=== PATIENT | male | born 1935 | race Caucasian/White ===

== ENCOUNTER 2017-04-24 16:21 | Emergency (ER) | payer MEDICARE, OTHER ==
[2017-04-24] MEDS ORDERED: Lidocaine 1% 30 ML SDV INJECT ONE (17:14)
[2017-04-24] MEDS ORDERED: Bacitracin Oint 1 GM U/D Packet TOP ONE (17:14)
--- NOTE | 2017-04-24 18:59 | EDM.PDOC ---
Scribed by Kassi Clay 04/24/17 [id number] for Vel Zendejas MD ED HPI GENERAL MEDICAL PROBLEM - General Chief Complaint: Head Injury Stated Complaint: FORHEAD LACERATION Time Seen by Provider: 04/24/17 16:31 Source of Information: Reports: Patient, RN, RN Notes Reviewed History Limitations: Reports: No Limitations - History of Present Illness INITIAL COMMENTS - FREE TEXT/NARRATIVE: Patient presents to ER via POV. He was taking his garbage out when the wind blew the lid off, he tried to catch it and slipped on the ice and hit his right lower leg and forehead when he fell. No loss of consciousness. He sustained an abrasion to the right lower leg and a laceration to the forehead. Denies any other injury. Last tetanus vaccine was approximately 3 years ago. Patient is on known chronic anticoagulation. Onset: Today Location: Reports: Head, Lower Extremity, Right Quality: Reports: Ache Severity: Moderate Improves with: Reports: None Worsens with: Reports: None Associated Symptoms: Reports: No Other Symptoms Right Head Pain Score (Numeric/FACES): 5 - Related Data Allergies Allergy/AdvReac Type Severity Reaction Status Date / Time No Known Allergies Allergy Unverified 12/17/13 15:41 Home Meds: Home Meds Aspirin [[place] Aspirin] 1 tab PO BEDTIME 04/24/17 [History] Losartan [Cozaar] 1 tab PO DAILY 04/24/17 [History] PARoxetine HCl [Paroxetine HCl] 1 tab PO DAILY 04/24/17 [History] Rivaroxaban [Xarelto] 1 tab PO DAILY 04/24/17 [History] Tamsulosin [Flomax] 1 tab PO DAILY 04/24/17 [History] amLODIPine [Norvasc] 1 tab PO DAILY 04/24/17 [History] Past Medical History Cardiovascular History: Reports: Afib, CAD, Hypertension, Pacemaker Social & Family History - Family History Family Medical History: Noncontributory - Living Situation & Occupation Occupation: Retired ED ROS GENERAL - Review of Systems Review Of Systems: ROS reveals no pertinent complaints other than HPI. ED EXAM, HEAD INJURY - Physical Exam Exam: See Below Exam Limited By: No Limitations General Appearance: Alert, WD/WN, No Apparent Distress Head: Normocephalic, Other (6cm vertical irregular laceration depth of subcutaneous tissue on the superior one half and superficial at the lower half. No active bleeding or foreign body. ) Eyes: Bilateral Eye: Normal Inspection Ears: Other (no hemotympanum. No bloo) Nose: No Blood Throat/Mouth: Normal Inspection, Normal Lips, Normal Teeth, Normal Gums, Normal Oropharynx, Normal Voice, No Airway Compromise Neck: Non-Tender, Full Range of Motion, Normal Alignment, Normal Inspection Respiratory: No Respiratory Distress, Lungs Clear, Normal Breath Sounds, No Accessory Muscle Use, Chest Non-Tender Cardiovascular: Normal Peripheral Pulses, Regular Rate, Rhythm, No Edema, No Gallop, No JVD, No Murmur, No Rub Extremities: Other (mild mid kerr swelling with superficial abrasion. No active bleeding. No foriegn body. ) Neurologic: molder setter II-XII nml As Tested, No Motor/Sensory Deficits, Alert, Normal Mood/Affect, Oriented x 3 - Remi Coma Score Best Eye Response ([place]): (4) Open Spontaneously Best Verbal Response ([place]): (5) Oriented Best Motor Response ([place]): (6) Obeys Commands [place] Total: 15 (on arrival and discharge.) ED LACERATION/WOUND & CHAZ PROC - Laceration/Wound Repair Right Forehead Lac/wound length in cm: 6 Appearance: Subcutaneous, Irregular, Clean Distal NVT: Neuro & Vascular Intact Anesthetic Type: Local Local Anesthesia - Lidocaine (Xylocaine): 1% Plain Local Anesthetic Volume: Other (10cc) Skin Prep: Chlorhexidine (Hibiciens), Saline Saline irrigation (cc's): 250 Exploration/Debridement/Repair: Wound Explored, In a Bloodless Field, Explored to Base, Minimal Debridement, Minimally Undermined Closed with: Sutures Suture Size: 4-0 # of Sutures: 7 Suture Type: Nylon, Running Drain Placement: No Sterile Dressing Applied: Nurse Tetanus Status Addressed: Yes Complications: No Course - Vital Signs Last Recorded V/S: Last Vital Signs Temp 37.2 C 04/24/17 16:28 Pulse 91 04/24/17 16:28 Resp 16 04/24/17 16:28 BP 152/85 H 04/24/17 16:28 Pulse Ox 95 04/24/17 16:28 - Orders/Labs/Meds Meds: Medications Discontinued Medications Generic Name Dose Route Start Last Admin Trade Name Freq PRN Reason Stop Dose Admin Bacitracin 1 dose 04/24/17 17:14 04/24/17 17:28 Bacitracin Oint 1 Gm TOP 04/24/17 17:15 1 dose ONETIME ONE Administration Lidocaine HCl 30 ml 04/24/17 17:14 04/24/17 17:28 Xylocaine-Mpf 1% INJECT 04/24/17 17:15 30 ml ONETIME ONE Administration - Radiology Interpretation Free Text/Narrative:: Head CT: No acute findings. Stable mild chronic small vessel ischemic changes throughout the supratentorial white matter. See Rad report. Departure - Departure Time of Disposition: 18:01 Disposition: Home, Self-Care 01 Condition: Good Clinical Impression: Abrasion, right lower leg, initial encounter, Chronic anticoagulation Forehead laceration Qualifiers: Encounter type: initial encounter Qualified Code(s): S01.81XA - Laceration without foreign body of other part of head, initial encounter Fall from slipping on ice Qualifiers: Encounter type: initial encounter Qualified Code(s): W00.9XXA - Unspecified fall due to ice and snow, initial encounter - Discharge Information Instructions: Laceration Care, Adult, Abrasion, [id number] Referrals: Anai Washington, MAIL DISTRIBUTION CLERK [Primary Care Provider] - Forms: ED Department Discharge Additional Instructions: Follow up in clinic in 7-10 for suture removal. Follow up in ER if any signs of wound infection develop. I have read and agree with the documentation that has been completed regarding this visit. By signing this record, I attest that the documentation was completed in my physical presence and is an accurate record of the encounter.
== END 2017-04-24 18:20 | disposition home or self-care (01) ==
LOC: DL.ED 16:21 → EEVIPCON 16:21 → DL.ED 18:20
DX: S01.81XA Laceration without foreign body of other part of head, initial encounter (principal); S80.811A Abrasion, right lower leg, initial encounter; I48.91 Unspecified atrial fibrillation; I10 Essential (primary) hypertension; Z79.01 Long term (current) use of anticoagulants; Z79.82 Long term (current) use of aspirin; Z79.899 Other long term (current) drug therapy; W00.0XXA Fall on same level due to ice and snow, initial encounter
CPT/HCPCS: 12014; 70450; 90471; 99283; 99284

== ENCOUNTER 2017-07-27 15:50 | Emergency (ER) | payer MEDICARE, OTHER ==
[2017-07-27] MEDS ORDERED: Sodium Chloride 0.9% 10 ML Syringe FLUSH PRN (16:40)
[2017-07-27] MEDS ORDERED: Sodium Chloride 0.9% 1,000 ML IV ONE (16:40)
[2017-07-27 17:16] LABS: CHLORIDE,CL 104 mmol/L (101-111); SODIUM,NA 140 mmol/L (135-145)
[2017-07-27] MEDS ORDERED: Iopamidol 612 MG/ML 100 ML Bottle IVPUSH ONE (17:18)
[2017-07-27] MEDS ORDERED: Acetaminophen/HYDROcodone 325-10 MG Tab PO ONE (18:43)
--- NOTE | 2017-07-27 18:44 | EDM.PDOC ---
"Scribed by Kassi Clay 07/27/17 [id number] for Vel Zendejas MD ED HPI GENERAL MEDICAL PROBLEM - General Chief Complaint: Abdominal Pain Stated Complaint: LEFT SIDE HURTS, STARTED LAST NIGHT Time Seen by Provider: 07/27/17 16:30 Source of Information: Reports: Patient, RN, RN Notes Reviewed History Limitations: Reports: No Limitations - History of Present Illness INITIAL COMMENTS - FREE TEXT/NARRATIVE: Patient arrives with complaint of onset of left lower abdominal pain yesterday. Denies fever, chills, vomiting, diarrhea or constipation. Admits to nausea. Pain is worse when he sits from supine position or goes from sitting to standing. Onset: Gradual Duration: Getting Worse Location: Reports: Abdomen Quality: Reports: Ache Severity: Moderate Improves with: Reports: None Worsens with: Reports: None Associated Symptoms: Reports: No Other Symptoms Left Abdominal Pain Score (Numeric/FACES): 7 - Related Data Allergies Allergy/AdvReac Type Severity Reaction Status Date / Time No Known Allergies Allergy Unverified 12/17/13 15:41 Home Meds: Home Meds Aspirin [[place] Aspirin] 1 tab PO BEDTIME 04/24/17 [History] Losartan [Cozaar] 1 tab PO DAILY 04/24/17 [History] PARoxetine HCl [Paroxetine HCl] 1 tab PO DAILY 04/24/17 [History] Rivaroxaban [Xarelto] 1 tab PO DAILY 04/24/17 [History] Tamsulosin [Flomax] 1 tab PO DAILY 04/24/17 [History] amLODIPine [Norvasc] 1 tab PO DAILY 04/24/17 [History] Past Medical History HEENT History: Reports: Head, Other (See Below) Other HEENT History: wears hearing aides Cardiovascular History: Reports: Afib, CAD, Hypertension, Pacemaker Respiratory History: Reports: Other (See Below) Other Respiratory History: recent URI Gastrointestinal History: Reports: None Genitourinary History: Reports: BPH, Prostate Disorder Musculoskeletal History: Reports: Osteoarthritis Other Musculoskeletal History: neck pain. Neurological History: Reports: None Psychiatric History: Reports: Depression Endocrine/Metabolic History: Reports: None Hematologic History: Reports: None Immunologic History: Reports: None Oncologic (Cancer) History: Reports: None Dermatologic History: Reports: None - Past Surgical History HEENT Surgical History: Reports: Cataract Surgery GI Surgical History: Reports: Colonoscopy Musculoskeletal Surgical History: Reports: Knee Replacement, Shoulder Surgery Other Musculoskeletal Surgeries/Procedures:: bilat knee replacement. Right shoulder replaced Social & Family History - Family History Family Medical History: Noncontributory - Tobacco Use Smoking Status *Q: Never Smoker Second Hand Smoke Exposure: No - Caffeine Use Caffeine Use: Reports: Soda Other Caffeine Use: 3-4 cans per day - Recreational Drug Use Recreational Drug Use: No - Living Situation & Occupation Occupation: Retired ED ROS GENERAL - Review of Systems Review Of Systems: ROS reveals no pertinent complaints other than HPI. ED EXAM, GI/ABD - Physical Exam Exam: See Below Exam Limited By: No Limitations General Appearance: Alert, WD/WN, No Apparent Distress Head: Atraumatic, Normocephalic Neck: Normal Inspection, Supple, Non-Tender, Full Range of Motion Respiratory/Chest: No Respiratory Distress, Lungs Clear, Normal Breath Sounds, No Accessory Muscle Use, Chest Non-Tender Cardiovascular: Normal Peripheral Pulses, Regular Rate, Rhythm, No Edema, No Gallop, No JVD, No Murmur, No Rub GI/Abdominal Exam: Soft, No Distention, No Abnormal Bruit, Pelvis Stable, Tender (left lower quadrant), Abnormal Bowel Sounds (hypoactive), Hernia (left lower quadrant with bulge at the lateral ventral wall suspicious for hernia. ). No: Guarding, Rigid, Rebound (Male) Exam: No: Hernia, Inguinal Lymphadenopathy, Suprapubic Fullness Rectal (Males) Exam: Deferred Back Exam: Normal Inspection, Full Range of Motion, NT Extremities: Normal Inspection, Normal Range of Motion, Non-Tender, Normal Capillary Refill, No Pedal Edema Neurological: Alert, Oriented, CN II-XII Intact, Normal Cognition, Normal Gait, Normal Reflexes, No Motor/Sensory Deficits Psychiatric: Normal Affect, Normal Mood Skin Exam: Warm, Dry, Intact, Normal Color, No Rash Course - Vital Signs Last Recorded V/S: Last Vital Signs Temp 37.1 C 07/27/17 16:23 Pulse 100 07/27/17 16:23 Resp 20 07/27/17 16:23 BP 162/86 H 07/27/17 16:23 Pulse Ox 94 L 07/27/17 16:23 - Orders/Labs/Meds Orders: Active Orders 24 hr Category Date Time Status Peripheral IV Care [RC] . DIRECTED Care 07/27/17 16:40 Active Abdomen Pelvis w Cont [CT] Stat Exams 07/27/17 17:18 Taken UA W/MICROSCOPIC [URIN] Stat Lab 07/27/17 16:40 Ordered Sodium Chloride 0.9% [Saline Flush] Med 07/27/17 16:40 Active 10 ml FLUSH ASDIRECTED PRN Peripheral IV Insertion Adult [OM.PC] Stat Oth 07/27/17 16:40 Ordered Medication Orders Sodium Chloride (Saline Flush) 10 ml FLUSH ASDIRECTED PRN PRN Reason: Keep Vein Open Last Admin: 07/27/17 17:19 Dose: 10 ml Labs: Laboratory Tests 07/27/17 07/27/17 07/27/17 Range/Units 16:44 16:44 16:44 WBC 9.8 (5.0-10.0) 10^3/uL RBC 4.39 L (4.6-6.2) 10^6/uL Hgb 13.7 L (14.0-18.0) g/dL Hct 41.1 (40.0-54.0) % MCV 93.6 (80-100) fL MCH 31.2 (27.0-34.0) pg MCHC 33.3 (33.0-35.0) g/dL Plt Count 252 (150-450) 10^3/uL Neut % (Auto) 64.9 (42.2-75.2) % Lymph % (Auto) 20.8 (20.5-50.1) % Webb % (Auto) 9.5 H (2-8) % Eos % (Auto) 4.6 H (1.0-3.0) % Baso % (Auto) 0.2 (0.0-1.0) % Sodium 140 (135-145) mmol/L Potassium 3.3 L (3.6-5.0) mmol/L Chloride 104 (101-111) mmol/L Carbon Dioxide 27.0 (21.0-31.0) mmol/L Anion Gap 12.3 BUN 14 (7-18) mg/dL Creatinine 0.9 (0.6-1.3) mg/dL Est Cr Clr Drug Dosing 73.98 mL/min Estimated GFR (MDRD) > 60 BUN/Creatinine Ratio 15.55 Glucose 118 H (74-105) mg/dL Lactic Acid 1.0 (0.5-2.2) mmol/L Calcium 8.6 (8.4-10.2) mg/dl Total Bilirubin 0.7 (0.2-1.0) mg/dL AST 22 (10-42) IU/L ALT 14 (10-60) IU/L Alkaline Phosphatase 64 (42-121) IU/L Total Protein 7.5 (6.7-8.2) g/dl Albumin 4.0 (3.2-5.5) g/dl Globulin 3.5 Albumin/Globulin Ratio 1.14 Amylase 67 (28-100) U/L Lipase 24 (22-51) U/L Meds: Medications Generic Name Dose Route Start Last Admin Trade Name Freq PRN Reason Stop Dose Admin Sodium Chloride 10 ml 07/27/17 16:40 07/27/17 17:19 Saline Flush FLUSH 10 ml ASDIRECTED PRN Administration Keep Vein Open Discontinued Medications Generic Name Dose Route Start Last Admin Trade Name Freq PRN Reason Stop Dose Admin Sodium Chloride 1,000 mls @ 999 mls/hr 07/27/17 16:40 07/27/17 16:45 Normal Saline IV 07/27/17 17:40 999 mls/hr .BOLUS ONE Administration Iopamidol 100 ml 07/27/17 17:18 07/27/17 17:43 Isovue-300 (61%) IVPUSH 07/27/17 17:19 100 ml ONETIME ONE Administration - Radiology Interpretation Free Text/Narrative:: CT scan abdomen/pelvis: EXAM: CT Abdomen and Pelvis With Intravenous Contrast CLINICAL HISTORY: The patient is 82 years-old, male; Signs and symptoms; Other: Llq abd pain w/ possible ventral hernia TECHNIQUE: Axial computed tomography images of the abdomen and pelvis with intravenous contrast. All CT scans at this facility use one or more dose reduction techniques, viz.: automated exposure control; ma/kV adjustment per patient size (including targeted exams where dose is matched to indication; i.e. head); or iterative reconstruction technique. Coronal and sagittal reformatted images were created and reviewed. CONTRAST: 100 mL of [id number] administered intravenously. COMPARISON: No relevant prior studies available. FINDINGS: Lung bases: Unremarkable. No mass. No consolidation. ABDOMEN: Liver: Unremarkable. No mass. Gallbladder and bile ducts: Unremarkable. No ductal dilation. Pancreas: Unremarkable. No mass. No ductal dilation. Spleen: Unremarkable. No splenomegaly. Adrenals: Unremarkable. No mass. Kidneys and ureters: No solid mass. No hydronephrosis. Stomach and bowel: Colonic diverticulosis. No obstruction. No mucosal thickening. BEV CONTE | Final Radiology Report CONFIDENTIALITY STATEMENT This report is intended only for use by the referring physician, and only in accordance with law. If you received this in error, call [phone]. Page 2 of 2 Appendix: No findings to suggest acute appendicitis. PELVIS: Bladder: Unremarkable. No mass. Reproductive: Prostate enlargement. ABDOMEN and PELVIS: Intraperitoneal space: Unremarkable. No free air. No significant fluid collection. Bones/joints: No acute findings. Soft tissues: Small lesion of increased attenuation in the left rectus muscle which is enlarged, minimal adjacent edema/inflammation in the anterior abdominal wall. Very small fat containing umbilical hernia. Vasculature: Unremarkable. No abdominal aortic aneurysm. Lymph nodes: No significant adenopathy. IMPRESSION: Small acute left rectus sheath hematoma. Thank you for allowing us to participate in the care of your patient. Dictated and Authenticated by: Will Taveras MD 07/27/2017 6:38 PM Central Time ([place] & [place]) Departure - Departure Time of Disposition: 18:39 Disposition: Home, Self-Care 01 Condition: Good Clinical Impression: Rectus sheath hematoma Qualifiers: Encounter type: initial encounter Qualified Code(s): S30.1XXA - Contusion of abdominal wall, initial encounter - Discharge Information Forms: ED Department Discharge Additional Instructions: Rx: Hydrocodone APAP 5mg/325mg *Do not drive while under the influence of this medication. Hold your Xarelto until you can be rechecked by your doctor on July 29. Apply ice packs to area of pain for 5 to 10 minutes at a time once or twice an hour while awake. Avoid any lifting, or frequent bending at the waist. Return to ER if worse at any time. - My Orders Last 24 Hours: My Active Orders 07/27/17 16:40 Peripheral IV Care [RC] . DIRECTED UA W/MICROSCOPIC [URIN] Stat Sodium Chloride 0.9% [Saline Flush] 10 ml FLUSH ASDIRECTED PRN Peripheral IV Insertion Adult [OM.PC] Stat 07/27/17 17:18 Abdomen Pelvis w Cont [CT] Stat - Assessment/Plan Last 24 Hours: My Active Orders 07/27/17 16:40 Peripheral IV Care [RC] . DIRECTED UA W/MICROSCOPIC [URIN] Stat Sodium Chloride 0.9% [Saline Flush] 10 ml FLUSH ASDIRECTED PRN Peripheral IV Insertion Adult [OM.PC] Stat 07/27/17 17:18 Abdomen Pelvis w Cont [CT] Stat I have read and agree with the documentation that has been completed regarding this visit. By signing this record, I attest that the documentation was completed in my physical presence and is an accurate record of the encounter."
== END 2017-07-27 18:55 | disposition home or self-care (01) ==
LOC: DL.ED 15:50
DX: S30.1XXA Contusion of abdominal wall, initial encounter (principal); I10 Essential (primary) hypertension; Z79.899 Other long term (current) drug therapy; X58.XXXA Exposure to other specified factors, initial encounter
CPT/HCPCS: 36415; 74177; 80053; 81001; 82150; 83605; 83690; 85025; 96360; 99284; A9270; J7030; J7050; Q9967

== ENCOUNTER 2017-11-01 07:28 | Day surgery (SDC) | payer MEDICARE, OTHER ==
[~2017-11-01 07:28] MED LIST: Midazolam 1 MG/ML 2 ML SDV ONE; fentaNYL 100 MCG/2 ML SDV ONE
[2017-11-01] MEDS ORDERED: Midazolam 1 MG/ML 2 ML SDV ONE ×2 (07:52→08:22)
[2017-11-01] MEDS ORDERED: Lactated Ringers 1,000 ML IV SCH (08:00)
[2017-11-01] MEDS ORDERED: Benzocaine 20% Oral Spray 59.2 ML Canister MUCMEM ONE (08:27)
[2017-11-01] MEDS ORDERED: Midazolam 1 MG/ML 2 ML SDV IV ONE ×3 (08:28→08:30)
--- NOTE | 2017-11-01 09:11 | OR ---
DATE: 11/01/2017 PREOPERATIVE DIAGNOSES: Dysphagia and voice change. POSTOPERATIVE DIAGNOSES: Dysphagia and voice change. PROCEDURE: Esophagogastroduodenoscopy with photographs. ANESTHESIA: Conscious sedation with IV Versed. SPECIMEN: None. OPERATIVE FINDING: Small hiatal hernia, otherwise, normal. RECOMMENDATION: Followup as needed. I do not see anything that would account for his dysphagia. He could catch a little bit of food and a small hiatal hernia, but probably not very significant. He has no hypopharynx lesions that he says occasionally he feels in his throat. INDICATION FOR PROCEDURE: This 82-year-old male complains of some swallowing problems and also has voice changes and a lump feeling in his throat. PROCEDURE IN DETAIL: After adequate preparation, a gastroscope was inserted into the esophagus. This was passed down through the distal esophagus. He does show a small 1 to 2 cm hiatal hernia, but no evidence of distal esophagitis or scar formation. The scope was advanced into the stomach. Both forward and retroflexed views are normal. The scope was advanced through the pylorus, and this was also normal. Photographs of these were taken. Air was suctioned from the stomach, and the scope was removed. [facility] /[id number]
== END 2017-11-01 10:30 | disposition home or self-care (01) ==
LOC: DL.ENDO 07:28
PROVIDERS: ATTEND Surgery
DX: R13.10 Dysphagia, unspecified (principal); K44.9 Diaphragmatic hernia without obstruction or gangrene; K21.9 Gastro-esophageal reflux disease without esophagitis; Z79.899 Other long term (current) drug therapy
CPT/HCPCS: 43235; J2250; J7120

== ENCOUNTER 2018-05-01 07:41 | Emergency (ER) | payer MEDICARE, OTHER ==
--- NOTE | 2018-05-01 07:46 | EDM.PDOC ---
ED HPI GENERAL MEDICAL PROBLEM - General Chief Complaint: Flank Pain Stated Complaint: RIGHT SIDED FLANK PAIN [id number] Time Seen by Provider: 05/01/18 07:46 Source of Information: Reports: Patient, Old Records, RN, RN Notes Reviewed History Limitations: Reports: No Limitations - History of Present Illness INITIAL COMMENTS - FREE TEXT/NARRATIVE: Pt presents to ER from home by POV with c/o waking at 0530HRS this morning due to right flank pain. He denies any injury, fever, chills, N/V/D, dysuria, or gross hematuria. The pain radiates to the right mid-abdominal area. Nothing makes the pain better or worse. Onset: Today Duration: Constant Location: Reports: Other (Right flank) Quality: Reports: Ache Severity: Severe Improves with: Reports: None Worsens with: Reports: None Associated Symptoms: Reports: No Other Symptoms Right Middle Flank Pain Score (Numeric/FACES): 8 - Related Data Allergies Allergy/AdvReac Type Severity Reaction Status Date / Time No Known Allergies Allergy Verified 05/01/18 08:19 Home Meds: Home Meds Losartan [Cozaar] 1 tab PO DAILY 04/24/17 [History] Tamsulosin [Flomax] 1 tab PO DAILY 04/24/17 [History] Amiodarone [Cordarone] 1 tab PO DAILY 10/30/17 [History] Carvedilol 1 tab PO BID 10/30/17 [History] Escitalopram [Lexapro] 1 tab PO DAILY 10/30/17 [History] Furosemide [Lasix] 2 tab PO DAILY 10/30/17 [History] Rivaroxaban [Xarelto] 1 tab PO BID 10/30/17 [History] Spironolactone [Aldactone] 25 mg PO DAILY 05/01/18 [History] Past Medical History HEENT History: Reports: Head, Other (See Below) Other HEENT History: wears hearing aides Cardiovascular History: Reports: Afib, CAD, Hypertension, Pacemaker Respiratory History: Reports: None Other Respiratory History: recent URI Gastrointestinal History: Reports: None Genitourinary History: Reports: BPH, Prostate Disorder Musculoskeletal History: Reports: None, Osteoarthritis, Other (See Below) ( Spontaneous rectus hematoma) Other Musculoskeletal History: neck pain. Neurological History: Reports: None Psychiatric History: Reports: Depression Endocrine/Metabolic History: Reports: None Hematologic History: Reports: None Immunologic History: Reports: None Oncologic (Cancer) History: Reports: None Dermatologic History: Reports: None - Infectious Disease History Infectious Disease History: Reports: None, Other (See Below) Other Infectious Disease History: unsure cant remember - Past Surgical History HEENT Surgical History: Reports: Cataract Surgery, Other (See Below) Other HEENT Surgeries/Procedures: lasik surg Cardiovascular Surgical History: Reports: Pacer Respiratory Surgical History: Reports: None GI Surgical History: Reports: Colonoscopy Musculoskeletal Surgical History: Reports: Knee Replacement, Shoulder Surgery Other Musculoskeletal Surgeries/Procedures:: bilat knee replacement. Right shoulder replaced Social & Family History - Family History Family Medical History: Noncontributory - Tobacco Use Smoking Status *Q: Never Smoker - Caffeine Use Caffeine Use: Reports: Soda Other Caffeine Use: 2-3 cans per day - Alcohol Use Alcohol Use History: No - Recreational Drug Use Recreational Drug Use: No - Living Situation & Occupation Living situation: Reports: , Alone Occupation: Retired ED ROS GENERAL - Review of Systems Review Of Systems: ROS reveals no pertinent complaints other than HPI. ED EXAM, GENERAL - Physical Exam Exam: See Below Exam Limited By: No Limitations General Appearance: Alert, WD/WN, No Apparent Distress, Obese Eye Exam: Bilateral Eye: Normal Inspection Nose: Normal Inspection, Normal Mucosa, No Blood Throat/Mouth: Normal Inspection, Normal Lips, Normal Oropharynx, Normal Voice, No Airway Compromise Head: Atraumatic, Normocephalic Neck: Normal Inspection, Supple, Non-Tender, Full Range of Motion Respiratory/Chest: No Respiratory Distress, Lungs Clear, Normal Breath Sounds, No Accessory Muscle Use, Chest Non-Tender Cardiovascular: Normal Peripheral Pulses, Regular Rate, Rhythm, No Edema, No Gallop, No JVD, No Murmur, No Rub GI/Abdominal: Normal Bowel Sounds, Soft, No Distention, No Abnormal Bruit, Pelvis Stable, Tender (Right flank and Rt mid-abdomen). No: Guarding, Rigid, Rebound (Male) Exam: Deferred Rectal (Males) Exam: Deferred Back Exam: Full Range of Motion, CVA Tenderness (R). No: CVA Tenderness (L), Vertebral Tenderness Extremities: Normal Inspection, Normal Range of Motion, Non-Tender Neurological: Alert, Oriented, CN II-XII Intact, Normal Cognition, Normal Gait, No Motor/Sensory Deficits Psychiatric: Normal Affect, Normal Mood Skin Exam: Warm, Dry, Intact, Normal Color, No Rash Course - Vital Signs Last Recorded V/S: Last Vital Signs Temp 35.2 C L 05/01/18 07:51 Pulse 85 05/01/18 07:51 Resp 16 05/01/18 07:51 BP 127/101 H 05/01/18 07:51 Pulse Ox 97 05/01/18 07:51 - Orders/Labs/Meds Orders: Active Orders 24 hr Category Date Time Status Peripheral IV Care [RC] . DIRECTED Care 05/01/18 07:53 Active Abdomen Pelvis wo Cont [CT] Urgent Exams 05/01/18 08:12 Taken Sodium Chloride 0.9% [Saline Flush] Med 05/01/18 07:52 Active 10 ml FLUSH ASDIRECTED PRN Peripheral IV Insertion Adult [OM.PC] Stat Oth 05/01/18 07:52 Ordered Medication Orders Sodium Chloride (Saline Flush) 10 ml FLUSH ASDIRECTED PRN PRN Reason: Keep Vein Open Last Admin: 05/01/18 08:23 Dose: 10 ml Labs: Laboratory Tests 05/01/18 05/01/18 05/01/18 Range/Units 07:56 08:02 08:02 WBC 6.2 (5.0-10.0) 10^3/uL RBC 4.39 L (4.6-6.2) 10^6/uL Hgb 14.1 (14.0-18.0) g/dL Hct 43.3 (40.0-54.0) % MCV 98.6 D (80-100) fL MCH 32.1 (27.0-34.0) pg MCHC 32.6 L (33.0-35.0) g/dL Plt Count 200 (150-450) 10^3/uL Neut % (Auto) 61.7 (42.2-75.2) % Lymph % (Auto) 25.4 (20.5-50.1) % [place] % (Auto) 7.3 (2-8) % Eos % (Auto) 5.3 H (1.0-3.0) % Baso % (Auto) 0.3 (0.0-1.0) % Sodium 138 (135-145) mmol/L Potassium 3.8 (3.6-5.0) mmol/L Chloride 103 (101-111) mmol/L Carbon Dioxide 23.0 (21.0-31.0) mmol/L Anion Gap 15.8 BUN 23 H (7-18) mg/dL Creatinine 1.5 H (0.6-1.3) mg/dL Est Cr Clr Drug Dosing 44.39 mL/min Estimated GFR (MDRD) 45 BUN/Creatinine Ratio 15.33 Glucose 106 H (74-105) mg/dL Calcium 8.3 L (8.4-10.2) mg/dl Total Bilirubin 0.8 (0.2-1.0) mg/dL AST 24 (10-42) IU/L ALT 15 (10-60) IU/L Alkaline Phosphatase 65 (42-121) IU/L Total Protein 7.4 (6.7-8.2) g/dl Albumin 4.2 (3.2-5.5) g/dl Globulin 3.2 Albumin/Globulin Ratio 1.31 Amylase 68 (28-100) U/L Lipase 37 (22-51) U/L Urine Color Yellow (YELLOW) Urine Appearance Slightly cloudy (CLEAR) Urine pH 5.5 (5.0-9.0) Ur Specific [place] >= 1.030 (1.005-1.030) Urine Protein Trace H (NEGATIVE) Urine Glucose (UA) Negative (NEGATIVE) Urine Ketones Negative (NEGATIVE) Urine Occult Blood Large H (NEGATIVE) Urine Nitrite Negative (NEGATIVE) Urine Bilirubin Negative (NEGATIVE) Urine Urobilinogen 0.2 (0.2-1.0) mg/dL Ur Leukocyte Esterase Negative (NEGATIVE) Urine RBC >100 H /HPF Urine WBC 0-5 (0-5/HPF) /HPF Ur Epithelial Cells Occasional /HPF Urine Bacteria Occasional (0-FEW/HPF) /HPF Urine Other See note Meds: Medications Generic Name Dose Route Start Last Admin Trade Name Freq PRN Reason Stop Dose Admin Sodium Chloride 10 ml 05/01/18 07:52 05/01/18 08:23 Saline Flush FLUSH 10 ml ASDIRECTED PRN Administration Keep Vein Open Discontinued Medications Generic Name Dose Route Start Last Admin Trade Name Freq PRN Reason Stop Dose Admin Hydromorphone HCl 0.5 mg 05/01/18 08:12 05/01/18 08:31 Dilaudid IVPUSH 05/01/18 08:13 0.5 mg ONETIME ONE Administration - Radiology Interpretation Free Text/Narrative:: CT Abd/Pelvis: non-obstructive stone in Rt kidney, calcification in prostate which may by a small kidney stone passing, no other acute findings per Rad. report. Departure - Departure Time of Disposition: 09:38 Disposition: Home, Self-Care 01 Condition: Fair Clinical Impression: Right flank pain Hematuria Qualifiers: Hematuria type: other microscopic Qualified Code(s): R31.29 - Other microscopic hematuria; R31.2 - Other microscopic hematuria - Discharge Information *PRESCRIPTION DRUG MONITORING PROGRAM REVIEWED*: Not Applicable *COPY OF PRESCRIPTION DRUG MONITORING REPORT IN PATIENT DANILO: Not Applicable Instructions: Flank Pain, Adult, Hematuria, Adult Forms: ED Department Discharge Additional Instructions: Rx: Hydrocodone APAP 5mg/325mg *Do not drive while under the influence of this medication. Follow up in clinic in 4 to 5 days for recheck. Return to ER if worse at any time. - My Orders Last 24 Hours: My Active Orders 05/01/18 07:52 Sodium Chloride 0.9% [Saline Flush] 10 ml FLUSH ASDIRECTED PRN Peripheral IV Insertion Adult [OM.PC] Stat 05/01/18 07:53 Peripheral IV Care [RC] . DIRECTED 05/01/18 08:12 Abdomen Pelvis wo Cont [CT] Urgent - Assessment/Plan Last 24 Hours: My Active Orders 05/01/18 07:52 Sodium Chloride 0.9% [Saline Flush] 10 ml FLUSH ASDIRECTED PRN Peripheral IV Insertion Adult [OM.PC] Stat 05/01/18 07:53 Peripheral IV Care [RC] . DIRECTED 05/01/18 08:12 Abdomen Pelvis wo Cont [CT] Urgent
[2018-05-01] MEDS ORDERED: Sodium Chloride 0.9% 10 ML Syringe FLUSH PRN (07:52)
[2018-05-01] MEDS ORDERED: HYDROmorphone 1 MG/ML Syringe IVPUSH ONE (08:12)
[2018-05-01 08:29] LABS: ANION GAP 15.8
--- NOTE | 2018-05-01 10:09 | CT ---
Clinical history: 82-year-old male who woke up with right flank pain and hematuria. Scan technique: Volume acquisition of data emergency unenhanced CT scan of the abdomen and pelvis (kidneys/ureters/bladder) obtained while the patient was lying supine on the Siemens multislice CT scanner [place], [place]. All data archived in the PACS system for storage, reformatting axial/sagittal/coronal planes and study. (Comparison CT exam 27 July 2017) Interpretation: 1. Abnormal inhomogeneously dense prostate gland with punctate calcification centrally that was present CT exam 27 July 2017. 2. Round cortical cysts respectively lower pole right kidney (2 cm) and upper pole left kidney (3.4 cm). 3. Isolated tiny calcification lower pole calyx of the right kidney present on 27 July 2017 and mild pyelocaliectasis, on the right. 4. Large phleboliths both sides of the pelvis that were present on July 2017 exam. No sign of ureteral calcification or obstruction but suggest probable biliary of recently "passed" stone on the right. Apical? 5. Numerous diverticula sigmoid colon (diverticulosis). 6. No pelvic or abdominal mass lesion, inflammatory "dirty" peritoneal fat, signs of mechanical bowel obstruction, ascites or free intraperitoneal air. Multilevel disc disease and hypertrophic arthritic changes of the spine. Aortoiliac calcifications, normal caliber. 7. Gallbladder, unenhanced liver, stomach, spleen, pancreas, and adrenal glands unremarkable. Cardiac pacemaker leads. CONCLUSION: Bilateral renal cysts and isolated tiny lower pole calyceal calcification right kidney unchanged since 27 July 2017. Asymmetric mild pyelocaliectasis on the right (see above). Sigmoid diverticulosis. Abnormal lumbar spine. No stone currently identified in the collecting system.
== END 2018-05-01 09:53 | disposition home or self-care (01) ==
LOC: DL.ED 07:41
DX: R31.29 Other microscopic hematuria (principal); R10.9 Unspecified abdominal pain; I10 Essential (primary) hypertension; I25.10 Atherosclerotic heart disease of native coronary artery without angina pectoris; I48.91 Unspecified atrial fibrillation; Z79.899 Other long term (current) drug therapy; Z95.0 Presence of cardiac pacemaker; Z96.653 Presence of artificial knee joint, bilateral
CPT/HCPCS: 36415; 74176; 80053; 81001; 82150; 83690; 85025; 96374; 99284; J1170

== ENCOUNTER → 2018-09-29 | Outpatient (CLI) | payer MEDICARE, OTHER | LOC: DL.CLIN 13:30 | CPT/HCPCS: 99213 ==

== ENCOUNTER 2019-01-12 13:48 | Emergency (ER) | payer MEDICARE, OTHER ==
[2019-01-12] MEDS ORDERED: Sodium Chloride 0.9% 10 ML Syringe FLUSH PRN (14:10)
--- NOTE | 2019-01-12 14:10 | EDM.PDOC ---
ED HPI GENERAL MEDICAL PROBLEM - General Stated Complaint: ACCELERATED HEARTRATE Time Seen by Provider: 01/12/19 13:55 Source of Information: Reports: Patient, RN, RN Notes Reviewed History Limitations: Reports: No Limitations - History of Present Illness INITIAL COMMENTS - FREE TEXT/NARRATIVE: Pt to ER from [facility] with c/o chest pains. Patient states he has been having sharp chest pains since Saturday evening. States he has had some SOB at times as well. Denies recent fever or chills, N/V/D. Patient states he had a pacemaker/defibrillator placed about 6 months ago. States he also had a left shoulder replaced about 4 months ago. States he takes blood thinners. Last BM was this am and was normal for him. States he has never had indigestion, heartburn, or acid reflux in the past. Patient admits the anterior chest is tender to touch, and the pain is more severe when pressing on the chest. Patient states he presented to the clinic today and was having the chest pain and was told to present to the ER. Onset: Gradual Duration: Intermittent Location: Reports: Chest Quality: Reports: Sharp Severity: Moderate Improves with: Reports: None Worsens with: Reports: None Associated Symptoms: Reports: Chest Pain, Shortness of Breath - Related Data Allergies Allergy/AdvReac Type Severity Reaction Status Date / Time No Known Allergies Allergy Verified 12/28/18 07:09 Home Meds: Home Meds Losartan [Cozaar] 1 tab PO DAILY 04/24/17 [History] Tamsulosin [Flomax] 1 tab PO DAILY 04/24/17 [History] Amiodarone [Cordarone] 1 tab PO DAILY 10/30/17 [History] Carvedilol 1 tab PO BID 10/30/17 [History] Escitalopram [Lexapro] 1 tab PO DAILY 10/30/17 [History] Furosemide [Lasix] 2 tab PO DAILY 10/30/17 [History] Rivaroxaban [Xarelto] 1 tab PO BID 10/30/17 [History] Spironolactone [Aldactone] 25 mg PO DAILY 05/01/18 [History] Past Medical History HEENT History: Reports: Head, Other (See Below) Other HEENT History: wears hearing aides Cardiovascular History: Reports: Afib, CAD, Hypertension, Pacemaker Respiratory History: Reports: None Other Respiratory History: recent URI Gastrointestinal History: Reports: None Genitourinary History: Reports: BPH, Prostate Disorder Musculoskeletal History: Reports: Osteoarthritis, Other (See Below) Other Musculoskeletal History: neck pain. Neurological History: Reports: None Psychiatric History: Reports: Depression Endocrine/Metabolic History: Reports: None Hematologic History: Reports: None Immunologic History: Reports: None Oncologic (Cancer) History: Reports: None Dermatologic History: Reports: None - Infectious Disease History Infectious Disease History: Reports: None Other Infectious Disease History: unsure cant remember - Past Surgical History HEENT Surgical History: Reports: Cataract Surgery, Other (See Below) Other HEENT Surgeries/Procedures: lasik surg Cardiovascular Surgical History: Reports: Pacer Respiratory Surgical History: Reports: None GI Surgical History: Reports: Colonoscopy Musculoskeletal Surgical History: Reports: Joint Replacement, Knee Replacement, Shoulder Replacement, Shoulder Surgery Other Musculoskeletal Surgeries/Procedures:: bilat knee replacement. Right shoulder replaced Social & Family History - Family History Family Medical History: Noncontributory - Caffeine Use Caffeine Use: Reports: Soda Other Caffeine Use: 2-3 cans per day - Living Situation & Occupation Living situation: Reports: , Alone Occupation: Retired ED ROS GENERAL - Review of Systems Review Of Systems: ROS reveals no pertinent complaints other than HPI. ED EXAM, GENERAL - Physical Exam Exam: See Below Exam Limited By: No Limitations General Appearance: Alert, WD/WN, No Apparent Distress, Anxious Eye Exam: Bilateral Eye: EOMI, Normal Inspection Ears: Normal External Exam, Hearing Grossly Normal Nose: Normal Inspection Throat/Mouth: Normal Inspection, Normal Voice, No Airway Compromise Head: Atraumatic, Normocephalic Neck: Normal Inspection, Supple, Non-Tender, Full Range of Motion Respiratory/Chest: No Respiratory Distress, Lungs Clear, Normal Breath Sounds, No Accessory Muscle Use, Other (Anterior chest tenderness, Left/midsternal) Cardiovascular: Normal Peripheral Pulses, Regular Rate, Rhythm, No Edema, No Gallop, No JVD, No Murmur, No Rub Peripheral Pulses: 2+: Radial (L), Radial (R) GI/Abdominal: Normal Bowel Sounds, Soft, Non-Tender, No Organomegaly, No Distention (Male) Exam: Deferred Rectal (Males) Exam: Deferred Back Exam: Normal Inspection, Full Range of Motion, NT Extremities: Normal Inspection, Limited Range of Motion (left arm, recent shoulder surgery) Neurological: Alert, Oriented, CN II-XII Intact, Normal Cognition, Normal Gait, Normal Reflexes, No Motor/Sensory Deficits Psychiatric: Normal Affect, Normal Mood, Anxious Skin Exam: Warm, Dry, Intact, Normal Color, No Rash, Other (Healed incisional site at left shoulder) Lymphatic: No Adenopathy Course - Vital Signs Last Recorded V/S: Last Vital Signs Temp 97.4 F 01/12/19 14:20 Pulse 68 01/12/19 14:20 Resp 16 01/12/19 14:20 BP 156/72 H 01/12/19 14:20 Pulse Ox 99 01/12/19 14:20 - Orders/Labs/Meds Orders: Active Orders 24 hr Category Date Time Status EKG Documentation Completion [RC] STAT Care 01/12/19 14:10 Active Peripheral IV Care [RC] . DIRECTED Care 01/12/19 14:11 Active Peripheral IV Insertion Adult [OM.PC] Stat Oth 01/12/19 14:10 Ordered Labs: Laboratory Tests 01/12/19 01/12/19 01/12/19 Range/Units 14:00 14:00 14:00 WBC 6.8 (5.0-10.0) 10^3/uL RBC 3.85 L (4.6-6.2) 10^6/uL Hgb 11.6 L D (14.0-18.0) g/dL Hct 37.7 L (40.0-54.0) % MCV 97.9 (80-100) fL MCH 30.1 (27.0-34.0) pg MCHC 30.8 L (33.0-35.0) g/dL Plt Count 248 (150-450) 10^3/uL Neut % (Auto) 74.2 (42.2-75.2) % Lymph % (Auto) 14.2 L (20.5-50.1) % [place] % (Auto) 9.2 H (2-8) % Eos % (Auto) 2.3 (1.0-3.0) % Baso % (Auto) 0.1 (0.0-1.0) % PT 12.0 (9.0-12.0) SEC INR 1.2 (0.9-1.2) D-Dimer, Quantitative (0-400) ng/mL Sodium 139 (135-145) mmol/L Potassium 3.8 (3.6-5.0) mmol/L Chloride 102 (101-111) mmol/L Carbon Dioxide 29.0 (21.0-31.0) mmol/L Anion Gap 11.8 BUN 19 H (7-18) mg/dL Creatinine 1.3 (0.6-1.3) mg/dL Est Cr Clr Drug Dosing TNP Estimated GFR (MDRD) 53 BUN/Creatinine Ratio 14.61 Glucose 88 (74-105) mg/dL Calcium 8.3 L (8.4-10.2) mg/dl Total Bilirubin 0.8 (0.2-1.0) mg/dL AST 18 (10-42) IU/L ALT 12 (10-60) IU/L Alkaline Phosphatase 75 (42-121) IU/L Troponin I < 0.02 (0.00-0.02) ng/ml B-Natriuretic Peptide 46 (0-100) pg/ml Total Protein 7.5 (6.7-8.2) g/dl Albumin 3.8 (3.2-5.5) g/dl Globulin 3.7 Albumin/Globulin Ratio 1.03 Urine Color (YELLOW) Urine Appearance (CLEAR) Urine pH (5.0-9.0) Ur Specific [place] (1.005-1.030) Urine Protein (NEGATIVE) Urine Glucose (UA) (NEGATIVE) Urine Ketones (NEGATIVE) Urine Occult Blood (NEGATIVE) Urine Nitrite (NEGATIVE) Urine Bilirubin (NEGATIVE) Urine Urobilinogen (0.2-1.0) mg/dL Ur Leukocyte Esterase (NEGATIVE) 01/12/19 01/12/19 Range/Units 14:00 16:50 WBC (5.0-10.0) 10^3/uL RBC (4.6-6.2) 10^6/uL Hgb (14.0-18.0) g/dL Hct (40.0-54.0) % MCV (80-100) fL MCH (27.0-34.0) pg MCHC (33.0-35.0) g/dL Plt Count (150-450) 10^3/uL Neut % (Auto) (42.2-75.2) % Lymph % (Auto) (20.5-50.1) % [place] % (Auto) (2-8) % Eos % (Auto) (1.0-3.0) % Baso % (Auto) (0.0-1.0) % PT (9.0-12.0) SEC INR (0.9-1.2) D-Dimer, Quantitative 3500 H (0-400) ng/mL Sodium (135-145) mmol/L Potassium (3.6-5.0) mmol/L Chloride (101-111) mmol/L Carbon Dioxide (21.0-31.0) mmol/L Anion Gap BUN (7-18) mg/dL Creatinine (0.6-1.3) mg/dL Est Cr Clr Drug Dosing Estimated GFR (MDRD) BUN/Creatinine Ratio Glucose (74-105) mg/dL Calcium (8.4-10.2) mg/dl Total Bilirubin (0.2-1.0) mg/dL AST (10-42) IU/L ALT (10-60) IU/L Alkaline Phosphatase (42-121) IU/L Troponin I (0.00-0.02) ng/ml B-Natriuretic Peptide (0-100) pg/ml Total Protein (6.7-8.2) g/dl Albumin (3.2-5.5) g/dl Globulin Albumin/Globulin Ratio Urine Color Yellow (YELLOW) Urine Appearance Clear (CLEAR) Urine pH 7.5 (5.0-9.0) Ur Specific [place] 1.015 (1.005-1.030) Urine Protein Negative (NEGATIVE) Urine Glucose (UA) Negative (NEGATIVE) Urine Ketones Negative (NEGATIVE) Urine Occult Blood Negative (NEGATIVE) Urine Nitrite Negative (NEGATIVE) Urine Bilirubin Negative (NEGATIVE) Urine Urobilinogen 1.0 (0.2-1.0) mg/dL Ur Leukocyte Esterase Negative (NEGATIVE) Meds: Medications Discontinued Medications Generic Name Dose Route Start Last Admin Trade Name Freq PRN Reason Stop Dose Admin Iopamidol 100 ml 01/12/19 14:52 01/12/19 16:12 Isovue-370 (76%) IVPUSH 01/12/19 14:53 79 ml ONETIME ONE Administration Sodium Chloride 10 ml 01/12/19 14:10 01/12/19 14:33 Saline Flush FLUSH 10 ml ASDIRECTED PRN Administration Keep Vein Open - Radiology Interpretation Free Text/Narrative:: Chest xray: No acute new cardiopulmonary abnormality since November 2018. See rad report Chest CT with contrast: Cardiac pacemaker (leads intact but one lead appears to perforate the left ventricular wall laterally. Pericardial effusion Low probability pulmonary embolism or infarct No sign of heart failure, lung mass, hilar lymphadenopathy or focal lobar pneumonia See rad report - Re-Assessments/Exams Free Text/Narrative Re-Assessment/Exam: 01/12/19 16:43 Discussed patient case with Dr. Reed at [facility] who agreed to accept the patient for transfer to . Departure - Departure Time of Disposition: 16:45 Disposition: Home, Self-Care 01 Condition: Fair Clinical Impression: Atypical chest pain, Pericardial effusion AICD lead displacement Qualifiers: Encounter type: initial encounter Qualified Code(s): T82.120A - Displacement of cardiac electrode, initial encounter Forms: ED Department Discharge, Interfacility Transfer EMTALA - My Orders Last 24 Hours: My Active Orders 01/12/19 14:10 EKG Documentation Completion [RC] STAT Peripheral IV Insertion Adult [OM.PC] Stat 01/12/19 14:11 Peripheral IV Care [RC] . DIRECTED - Assessment/Plan Last 24 Hours: My Active Orders 01/12/19 14:10 EKG Documentation Completion [RC] STAT Peripheral IV Insertion Adult [OM.PC] Stat 01/12/19 14:11 Peripheral IV Care [RC] . DIRECTED
[2019-01-12 14:30] LABS: ANION GAP 11.8; CHLORIDE,CL 102 mmol/L (101-111); SODIUM,NA 139 mmol/L (135-145)
--- NOTE | 2019-01-12 14:35 | CR ---
EXAMINATION: Chest 1V Frontal SEX: Male AGE: 83 years CLINICAL HISTORY: 83-year-old male chest pain. INTERPRETATION: 1. Chronic mild cardiomegaly unchanged except for technique since 23 November 2018 PA film. 2. No new pulmonary venous congestion, signs of alveolar edema or dependent pleural effusion. 3. Cardiac pacemaker (leads intact) and external equipment monitor phototypesetting leads (total orthopedic prosthesis right shoulder). 4. No new lung mass, hilar lymphadenopathy or focal lobar pneumonia. 5. No atelectasis/collapse. 6. No pneumothorax. CONCLUSION: No acute new cardiopulmonary abnormality since November 2018.
[2019-01-12] MEDS ORDERED: Iopamidol 755 Mg/ML 100 ML Bottle IVPUSH ONE (14:52)
--- NOTE | 2019-01-12 16:27 | CT ---
EXAMINATION: Chest w Cont SEX: Male AGE: 83 years CLINICAL HISTORY: Large 83-year-old hypertensive male with chest pain and serum d dimer 3500 (orthopedic shoulder surgery, one month ago). Rule out pulmonary embolism or infarct. Scan technique: Volume acquisition of data from the chest (bony thorax, lungs and mediastinum) obtained during intravenous infusion 79 cc nonionic Isovue contrast (370 Isovue at 3.5 cc/s via injector) while patient was lying supine on the Siemens multi slice scanner [place], [place]. All data archived in the PACS system for storage, reformatting axial/sagittal/coronal planes and study. INTERPRETATION: 1. Cardiac pacemaker (leads intact but one lead appears to perforate the left ventricular wall laterally. Recommend EKG. 2. Pericardial effusion. 3. Vascular flow defects (technique) in the pulmonary artery circulation proximally without fixed thrombus or associated evidence of pulmonary infarct i.e. no focal lobar oligemia, infiltrate/atelectasis, peripheral wedge-shaped pleural infarct, or pleural effusion. 4. Normal caliber thoracic aorta. Calcifications but no aneurysm or dissection. 5. Multilevel lower thoracic disc disease, spinal fusion and hypertrophic marginal spondylosis. No fracture or dislocation. No lung mass, hilar/mediastinal lymphadenopathy, or focal lobar pneumonia. CONCLUSION: Apparent abnormal position cardiac pacer lead (see above) and pericardial effusion. Low probability pulmonary embolism or infarct. No sign of heart failure, lung mass, hilar lymphadenopathy or focal lobar pneumonia.
== END 2019-01-12 17:00 | disposition home or self-care (01) ==
LOC: DL.ED 13:48
DX: T82.120A Displacement of cardiac electrode, initial encounter (principal); I31.3 Pericardial effusion (noninflammatory); I10 Essential (primary) hypertension; I25.10 Atherosclerotic heart disease of native coronary artery without angina pectoris; I48.91 Unspecified atrial fibrillation; M19.90 Unspecified osteoarthritis, unspecified site; F32.9 Major depressive disorder, single episode, unspecified; Z79.899 Other long term (current) drug therapy
CPT/HCPCS: 36415; 71045; 71260; 80053; 81003; 83880; 84484; 85025; 85379; 85610; 93005; 99285; Q9967

== ENCOUNTER 2019-04-03 07:23 | Day surgery (SDC) | payer MEDICARE, OTHER ==
[2019-04-03] MEDS ORDERED: fentaNYL 100 MCG/2 ML SDV IV ONE ×3 (07:24→08:05)
[2019-04-03] MEDS ORDERED: Midazolam 1 MG/ML 2 ML SDV IV ONE ×5 (07:24→08:08)
[2019-04-03] MEDS ORDERED: Dextrose 5%-0.45% NaCl 1,000 ML IV SCH (08:00)
--- NOTE | 2019-04-03 08:49 | OR ---
DATE: 04/03/2019 PREOPERATIVE DIAGNOSES: Screening colonoscopy and anemia. POSTOPERATIVE DIAGNOSES: Screening colonoscopy and anemia. PROCEDURE: Total colonoscopy. ANESTHESIA: Conscious sedation with IV Versed and fentanyl. SPECIMEN: None. OPERATIVE FINDINGS: Significant sigmoid diverticulosis, otherwise normal. No evidence of bleeding sites to explain his anemia. INTRODUCTION: This 83-year-old male has had a colonoscopy around 20 years ago. He does have some blood in his urine and the question was is this because of his anemia or could it possibly be colon, so he is here for a screening examination for followup polyps and for his anemia. PROCEDURE IN DETAIL: After adequate preparation, the colonoscope was inserted into the rectum. This was easily passed all the way to the cecum. Confirmation of the cecum was made by visualization of the ileocecal valve and palpation in the right lower quadrant. The bowel prep was excellent. On withdrawal of the scope, the only abnormality noted was significant sigmoid diverticulosis. He does not have any bleeding sites. No evidence of colitis, polyps, or cancers. The rectal and anal examination are normal by my digital. I think the prostate feels normal. No evidence of hemorrhoids. Air was suctioned from the colon and the scope removed. [facility] /[id number]
== END 2019-04-03 10:25 | disposition home or self-care (01) ==
LOC: DL.ENDO 07:23
PROVIDERS: ATTEND Surgery
DX: D64.9 Anemia, unspecified (principal); K57.30 Diverticulosis of large intestine without perforation or abscess without bleeding; R31.9 Hematuria, unspecified
CPT/HCPCS: 45378; G0121; J2250; J3010; J7042

== ENCOUNTER 2019-04-22 12:26 | Inpatient (IN) | payer MEDICARE, OTHER ==
[2019-04-22 14:04] LABS: ANION GAP 14.9; CHLORIDE,CL 99 mmol/L (101-111); SODIUM,NA 137 mmol/L (135-145)
[2019-04-22] MEDS: Sodium Chloride 0.9% 10 ML Syringe FLUSH PRN ×3 (14:09→20:13)
[2019-04-22] MEDS ORDERED: Furosemide 40 MG/4 ML VIAL IVPUSH ONE (14:20)
--- NOTE | 2019-04-22 14:51 | EDM.PDOC ---
Scribed by Kassi Clay 04/22/19 0158 for Guanaco Zendejas MD ED HPI GENERAL MEDICAL PROBLEM - General Chief Complaint: Respiratory Problem Stated Complaint: SOB/HEAD FEELS LIKE HE MIGHT PASS OUT WHEN WALKING Time Seen by Provider: 04/22/19 13:14 Source of Information: Reports: Patient, Old Records, RN, RN Notes Reviewed History Limitations: Reports: No Limitations - History of Present Illness INITIAL COMMENTS - FREE TEXT/NARRATIVE: Patient presents to ER with progressively worsening shortness of breath over the past week, and dizziness this morning. The lightheadedness occurred first upon arising from bed, and again with exertion. Patient states shortness of breath with ambulation. States shortness of breath has been going on for months , but is steadily worsening. He reports that he elevated the head of his bed to help his breathing, and has now been sleeping in a recliner. Denies chest pain. Onset: Gradual Duration: Chronic, Constant, Getting Worse Location: Reports: Chest, Generalized Quality: Reports: Other (Denies pain) Severity: Severe Improves with: Reports: Rest Worsens with: Reports: Other (Supine, and with exertion) Associated Symptoms: Reports: No Other Symptoms - Related Data Allergies Allergy/AdvReac Type Severity Reaction Status Date / Time No Known Allergies Allergy Verified 04/22/19 12:56 Home Meds: Home Meds Tamsulosin [Flomax] 1 tab PO DAILY 04/24/17 [History] Amiodarone [Cordarone] 200 mg PO DAILY 10/30/17 [History] Escitalopram [Lexapro] 1 tab PO DAILY 10/30/17 [History] Furosemide [Lasix] 40 mg PO DAILY 10/30/17 [History] Rivaroxaban [Xarelto] 20 mg PO BID 10/30/17 [History] carvediloL [Carvedilol] 3.125 mg PO BID 10/30/17 [History] Acetaminophen/Diphenhydramine [Tylenol Pm Ex-Strength Caplet] 1 tab PO BEDTIME 03/31/19 [History] Nitroglycerin 0.4 mg PO ASDIRECTED PRN 03/31/19 [History] Omeprazole 20 mg PO BID 03/31/19 [History] hydrOXYzine HCL [Hydroxyzine HCl] 25 - 50 mg PO 03/31/19 [History] traMADol HCl [Tramadol HCl] 50 mg PO ASDIRECTED 03/31/19 [History] Past Medical History HEENT History: Reports: Head, Other (See Below) Other HEENT History: wears hearing aides Cardiovascular History: Reports: Afib, CAD, Hypertension, Pacemaker Respiratory History: Reports: None Other Respiratory History: recent URI Gastrointestinal History: Reports: None Genitourinary History: Reports: BPH, Prostate Disorder Musculoskeletal History: Reports: Osteoarthritis, Other (See Below) Other Musculoskeletal History: neck pain. Neurological History: Reports: None Psychiatric History: Reports: Depression Endocrine/Metabolic History: Reports: None Hematologic History: Reports: None Immunologic History: Reports: None Oncologic (Cancer) History: Reports: None Dermatologic History: Reports: None - Infectious Disease History Infectious Disease History: Reports: None Other Infectious Disease History: unsure cant remember - Past Surgical History HEENT Surgical History: Reports: Cataract Surgery, Other (See Below) Cardiovascular Surgical History: Reports: Pacer Social & Family History - Family History Family Medical History: Noncontributory - Tobacco Use Smoking Status *Q: Never Smoker Second Hand Smoke Exposure: No - Caffeine Use Caffeine Use: Reports: Soda Other Caffeine Use: 2-3 cans per day - Recreational Drug Use Recreational Drug Use: No - Living Situation & Occupation Living situation: Reports: , Alone Occupation: Retired ED ROS GENERAL - Review of Systems Review Of Systems: Comprehensive ROS is negative, except as noted in HPI. ED EXAM, GENERAL - Physical Exam Exam: See Below Exam Limited By: No Limitations General Appearance: Alert, WD/WN, No Apparent Distress, Anxious Nose: Normal Inspection, Normal Mucosa, No Blood Throat/Mouth: Normal Inspection, Normal Lips, Normal Teeth, Normal Gums, Normal Oropharynx, Normal Voice, No Airway Compromise Head: Atraumatic, Normocephalic Neck: Normal Inspection, Supple, Non-Tender, Full Range of Motion. No: Lymphadenopathy (L), Lymphadenopathy (R) Respiratory/Chest: No Respiratory Distress, No Accessory Muscle Use, Chest Non- Tender, Decreased Breath Sounds (Rt>Left), Crackles, Rales. No: Rhonchi, Wheezing Cardiovascular: Normal Peripheral Pulses, Regular Rate, Rhythm, No Gallop, No JVD, No Murmur, No Rub, Other (+2 pitting edema to knees B/L) GI/Abdominal: Normal Bowel Sounds, Soft, Non-Tender, No Organomegaly, No Distention, No Abnormal Bruit, No Mass Back Exam: Normal Inspection, Full Range of Motion, NT Extremities: Normal Range of Motion, Non-Tender, Normal Capillary Refill, Pedal Edema. No: Joint Swelling, Priyanka's Sign, Increased Warmth, Redness Neurological: Alert, Oriented, CN II-XII Intact, Normal Cognition, No Motor/ Sensory Deficits Psychiatric: Anxious, Depressed Mood, Flat Affect Skin Exam: Warm, Dry, Intact, Normal Color, No Rash Course - Vital Signs Last Recorded V/S: Last Vital Signs Temp 97.9 F 04/22/19 12:51 Pulse 72 04/22/19 12:51 Resp 20 04/22/19 12:51 BP 161/99 H 04/22/19 12:51 Pulse Ox 100 04/22/19 12:51 6 minute walk test with RT: pt unable to walk 6 mins. Oxygen sats. drop from 98 % to 88% on RA in less than 50 feet of ambulation. - Orders/Labs/Meds Orders: Active Orders 24 hr Category Date Time Status Peripheral IV Care [RC] . DIRECTED Care 04/22/19 13:28 Active Sodium Chloride 0.9% [Saline Flush] Med 04/22/19 13:27 Active 10 ml FLUSH ASDIRECTED PRN 6 Minute Walk Test [RT Physical Performance Test] [ Oth 04/22/19 13:29 Active RESPCARE] Stat Peripheral IV Insertion Adult [OM.PC] Stat Oth 04/22/19 13:27 Ordered Medication Orders Sodium Chloride (Saline Flush) 10 ml FLUSH ASDIRECTED PRN PRN Reason: Keep Vein Open Last Admin: 04/22/19 14:27 Dose: 10 ml Admin: 04/22/19 14:09 Dose: 10 ml Labs: Laboratory Tests 04/22/19 04/22/19 Range/Units 13:39 13:39 WBC 5.4 (5.0-10.0) 10^3/uL RBC 3.77 L (4.6-6.2) 10^6/uL Hgb 11.3 L (14.0-18.0) g/dL Hct 36.2 L (40.0-54.0) % MCV 96.0 (80-100) fL MCH 30.0 (27.0-34.0) pg MCHC 31.2 L (33.0-35.0) g/dL Plt Count 171 (150-450) 10^3/uL Neut % (Auto) 72.4 (42.2-75.2) % Lymph % (Auto) 14.1 L (20.5-50.1) % [place] % (Auto) 10.9 H (2-8) % Eos % (Auto) 2.0 (1.0-3.0) % Baso % (Auto) 0.6 (0.0-1.0) % Sodium 137 (135-145) mmol/L Potassium 3.9 (3.6-5.0) mmol/L Chloride 99 L (101-111) mmol/L Carbon Dioxide 27.0 (21.0-31.0) mmol/L Anion Gap 14.9 BUN 19 H (7-18) mg/dL Creatinine 1.4 H (0.6-1.3) mg/dL Est Cr Clr Drug Dosing 46.77 mL/min Estimated GFR (MDRD) 49 BUN/Creatinine Ratio 13.57 Glucose 98 (74-105) mg/dL Calcium 8.5 (8.4-10.2) mg/dl Total Bilirubin 1.3 H (0.2-1.0) mg/dL AST 19 (10-42) IU/L ALT 12 (10-60) IU/L Alkaline Phosphatase 105 (42-121) IU/L Troponin I < 0.02 (0.00-0.02) ng/ml B-Natriuretic Peptide 162 H (0-100) pg/ml Total Protein 7.2 (6.7-8.2) g/dl Albumin 3.8 (3.2-5.5) g/dl Globulin 3.4 Albumin/Globulin Ratio 1.12 Meds: Medications Generic Name Dose Route Start Last Admin Trade Name Freq PRN Reason Stop Dose Admin Sodium Chloride 10 ml 04/22/19 13:27 04/22/19 14:27 Saline Flush FLUSH 10 ml ASDIRECTED PRN Administration Keep Vein Open Discontinued Medications Generic Name Dose Route Start Last Admin Trade Name Freq PRN Reason Stop Dose Admin Furosemide 80 mg 04/22/19 14:20 04/22/19 14:25 Lasix IVPUSH 04/22/19 14:21 80 mg NOW ONE Administration - Radiology Interpretation Free Text/Narrative:: [facility] [place] [facility] Final Radiology Report Call: [phone] assistance Online chat: [email or web address] Name: BEV CONTE Age: 83Years M Date: 04/22/2019 SSN: -- : [id number] Study: XR CHEST 2 VIEWS FRONTAL & LAT Requesting Physician: GUANACO ZENDEJAS Images: 2 Addl Studies: Provided Clinical History: Contrast: Contrast Medium: Contrast Amount: Contrast Method: CONFIDENTIALITY STATEMENT This report is intended only for use by the referring physician, and only in accordance with law. If you received this in error, call [phone]. Page 1 of 1 PROCEDURE INFORMATION: Exam: XR Chest, 2 Views Exam date and time: 04/22/2019 1:40 PM Age: 83 years old Clinical indication: Shortness of breath and other: Edema, orthopnea TECHNIQUE: Imaging protocol: XR of the chest Views: 2 views. COMPARISON: CR Chest 2V 02/06/2019 10:00 AM FINDINGS: Tubes, catheters and devices: A pacemaker device is present and its leads are in appropriate position. EKG leads overlie the chest. Lungs: The lungs are normal. Pleural space: There is a small right pleural fluid collection present. Heart/Mediastinum: The heart is not enlarged. The pulmonary arteries are not enlarged. Bones/joints: Unremarkable IMPRESSION: Small right pleural effusion. Thank you for allowing us to participate in the care of your patient. Dictated and Authenticated by: Bev Wasserman MD 04/22/2019 2:13 PM Central Time ([place] & [place]) Departure - Departure Time of Disposition: 14:47 (admitted to Dr. Reed) Disposition: Admitted As Inpatient 68 Condition: Fair Clinical Impression: Pleural effusion, right, Hypoxia Dyspnea Qualifiers: Dyspnea type: dyspnea on exertion Qualified Code(s): R06.09 - Other forms of dyspnea - Discharge Information *PRESCRIPTION DRUG MONITORING PROGRAM REVIEWED*: No *COPY OF PRESCRIPTION DRUG MONITORING REPORT IN PATIENT DANILO: No Forms: ED Department Discharge Sepsis Event Note - Evaluation Sepsis Screening Result: No Definite Risk - Focused Exam Vital Signs: Vital Signs Temp Pulse Resp BP Pulse Ox 04/22/19 12:51 97.9 F 72 20 161/99 H 100 Date Exam was Performed: 04/22/19 Time Exam was Performed: 14:47 - My Orders Last 24 Hours: My Active Orders 04/22/19 13:27 Sodium Chloride 0.9% [Saline Flush] 10 ml FLUSH ASDIRECTED PRN Peripheral IV Insertion Adult [OM.PC] Stat 04/22/19 13:28 Peripheral IV Care [RC] . DIRECTED 04/22/19 13:29 6 Minute Walk Test [RT Physical Performance Test] [RESPCARE] Stat - Assessment/Plan Last 24 Hours: My Active Orders 04/22/19 13:27 Sodium Chloride 0.9% [Saline Flush] 10 ml FLUSH ASDIRECTED PRN Peripheral IV Insertion Adult [OM.PC] Stat 04/22/19 13:28 Peripheral IV Care [RC] . DIRECTED 04/22/19 13:29 6 Minute Walk Test [RT Physical Performance Test] [RESPCARE] Stat I have read and agree with the documentation that has been completed regarding this visit. By signing this record, I attest that the documentation was completed in my physical presence and is an accurate record of the encounter.
[2019-04-22] MEDS ORDERED: Ondansetron 4 MG/2 ML SDV IVPUSH PRN (14:52)
[2019-04-22] MEDS ORDERED: Albuterol 0.083% 2.5 MG/3 ML Neb Soln NEB PRN (14:52)
[2019-04-22] MEDS ORDERED: Acetaminophen 325 MG Tab PO PRN (14:52)
[2019-04-22] MEDS ORDERED: Sodium Chloride 0.9% 10 ML Syringe FLUSH PRN (14:52)
[2019-04-22] MEDS ORDERED: traMADol 50 MG Tab PO SCH (15:00)
[2019-04-22] MEDS ORDERED: Furosemide 20 MG/2 ML VIAL IVPUSH SCH (20:00)
[2019-04-22] MEDS: diphenhydrAMINE 25 MG Tab PO SCH (20:17)
[2019-04-22] MEDS: Omeprazole 20 MG Cap.CR PO SCH (20:17)
[2019-04-22] MEDS: Carvedilol 3.125 MG Tab PO SCH (20:17)
[2019-04-22] MEDS: Acetaminophen 500 MG Tab PO SCH (20:17)
[2019-04-22] MEDS ORDERED: Furosemide 40 MG/4 ML VIAL IVPUSH SCH (21:00)
--- NOTE | 2019-04-22 21:34 | PCM.HP ---
H&P History of Present Illness - General Date of Service: 04/22/19 Admit Problem/Dx: Admission Diagnosis/Problem Admission Diagnosis/Problem Dyspnea Source of Information: Patient History Limitations: Reports: No Limitations - History of Present Illness Initial Comments - Free Text/Narative: Is an 83-year-old man with medical history of atrial fibrillation status post pacemaker placement, on chronic anticoagulation, hypertension, gastroesophageal reflux disease, and benign prostatic hypertrophy. The patient presented to the emergency room with complaint of shortness of breath which has been going on for about 4 days. Has gradually worsened over time. Intensity is now moderate. Has associated bilateral lower extremity edema. Patient has been on diuretic therapy but has no prior history of cardiac disease. No fever chills or rigors. Denies significant cough or wheezing. No headache and no blurry of vision . In the emergency room the patient was noted to be hypoxic saturation down to 80% with ambulation. Suprapubic Pain Score (Numeric/FACES): 2 - Related Data Allergies/Adverse Reactions: Allergies Allergy/AdvReac Type Severity Reaction Status Date / Time No Known Allergies Allergy Verified 04/22/19 12:56 Home Medications: Home Meds Tamsulosin [Flomax] 1 tab PO DAILY 04/24/17 [History] Amiodarone [Cordarone] 200 mg PO DAILY 10/30/17 [History] Escitalopram [Lexapro] 20 mg PO DAILY 10/30/17 [History] Rivaroxaban [Xarelto] 20 mg PO DAILY 10/30/17 [History] carvediloL [Carvedilol] 3.125 mg PO BID 10/30/17 [History] Acetaminophen/Diphenhydramine [Tylenol Pm Ex-Strength Caplet] 1 tab PO BEDTIME 03/31/19 [History] Nitroglycerin 0.4 mg PO ASDIRECTED PRN 03/31/19 [History] Omeprazole 20 mg PO DAILY 03/31/19 [History] hydrOXYzine HCL [Hydroxyzine HCl] 25 mg PO DAILY 03/31/19 [History] Furosemide 40 mg PO DAILY 04/22/19 [History] Past Medical History HEENT History: Reports: Head, Other (See Below) Other HEENT History: wears hearing aides Cardiovascular History: Reports: Afib, CAD, Hypertension Respiratory History: Reports: None Other Respiratory History: recent URI Gastrointestinal History: Reports: None Genitourinary History: Reports: BPH, Prostate Disorder Musculoskeletal History: Reports: Osteoarthritis, Other (See Below) Other Musculoskeletal History: neck pain. Neurological History: Reports: None Psychiatric History: Reports: Depression Endocrine/Metabolic History: Reports: Obesity/BMI 30+ Hematologic History: Reports: None Immunologic History: Reports: None Oncologic (Cancer) History: Reports: None Dermatologic History: Reports: None - Infectious Disease History Infectious Disease History: Reports: None Other Infectious Disease History: unsure cant remember - Past Surgical History HEENT Surgical History: Reports: Cataract Surgery, Other (See Below) Cardiovascular Surgical History: Reports: Pacer Other Cardiovascular Surgeries/Procedures: reports pacer removed, defibrilator insirted Social & Family History - Family History Family Medical History: Noncontributory - Tobacco Use Smoking Status *Q: Never Smoker Second Hand Smoke Exposure: No - Caffeine Use Caffeine Use: Reports: Soda Other Caffeine Use: 2-3 cans per day - Recreational Drug Use Recreational Drug Use: No - Living Situation & Occupation Living situation: Reports: , Alone Occupation: Retired H&P Review of Systems - Review of Systems: Review Of Systems: See Below General: Reports: Weakness HEENT: Reports: No Symptoms Pulmonary: Reports: Shortness of Breath Cardiovascular: Reports: Dyspnea on Exertion, Edema Gastrointestinal: Reports: No Symptoms Genitourinary: Reports: No Symptoms Musculoskeletal: Reports: No Symptoms Skin: Reports: No Symptoms Exam - Exam Exam: See Below - Vital Signs Vital Signs: Last Vital Signs Temp 36.9 C 04/22/19 18:52 Pulse 70 04/22/19 20:17 Resp 20 04/22/19 18:52 BP 149/92 H 04/22/19 20:17 Pulse Ox 97 04/22/19 18:52 Weight: 117.934 kg - Exam Quality Assessment: Supplemental Oxygen General: Alert, Oriented, Cooperative Neck: Supple Lungs: Decreased Breath Sounds Cardiovascular: Regular Rate, Regular Rhythm GI/Abdominal Exam: Normal Bowel Sounds, Soft, Non-Tender, No Organomegaly, No Distention, No Abnormal Bruit, No Mass, Pelvis Stable Extremities: Pedal Edema Skin: Warm, Dry, Intact - Patient Data Lab Results Last 24 hrs: Laboratory Results - last 24 hr 04/22/19 04/22/19 Range/Units 13:39 13:39 WBC 5.4 (5.0-10.0) 10^3/uL RBC 3.77 L (4.6-6.2) 10^6/uL Hgb 11.3 L (14.0-18.0) g/dL Hct 36.2 L (40.0-54.0) % MCV 96.0 (80-100) fL MCH 30.0 (27.0-34.0) pg MCHC 31.2 L (33.0-35.0) g/dL Plt Count 171 (150-450) 10^3/uL Neut % (Auto) 72.4 (42.2-75.2) % Lymph % (Auto) 14.1 L (20.5-50.1) % [place] % (Auto) 10.9 H (2-8) % Eos % (Auto) 2.0 (1.0-3.0) % Baso % (Auto) 0.6 (0.0-1.0) % Sodium 137 (135-145) mmol/L Potassium 3.9 (3.6-5.0) mmol/L Chloride 99 L (101-111) mmol/L Carbon Dioxide 27.0 (21.0-31.0) mmol/L Anion Gap 14.9 BUN 19 H (7-18) mg/dL Creatinine 1.4 H (0.6-1.3) mg/dL Est Cr Clr Drug Dosing 46.77 mL/min Estimated GFR (MDRD) 49 BUN/Creatinine Ratio 13.57 Glucose 98 (74-105) mg/dL Calcium 8.5 (8.4-10.2) mg/dl Total Bilirubin 1.3 H (0.2-1.0) mg/dL AST 19 (10-42) IU/L ALT 12 (10-60) IU/L Alkaline Phosphatase 105 (42-121) IU/L Troponin I < 0.02 (0.00-0.02) ng/ml B-Natriuretic Peptide 162 H (0-100) pg/ml Total Protein 7.2 (6.7-8.2) g/dl Albumin 3.8 (3.2-5.5) g/dl Globulin 3.4 Albumin/Globulin Ratio 1.12 Result Diagrams: 04/22/19 13:39 04/22/19 13:39 Problem List Initiated/Reviewed/Updated: Yes Orders Last 24hrs: Active Orders 24 hr Category Date Time Status Admission Diagnosis [ADT] Stat ADT 04/22/19 14:55 Ordered Admission Status [Patient Status] [ADT] Routine ADT 04/22/19 14:55 Active Patient Status [ADT] Routine ADT 04/22/19 14:52 Active Cardiac Monitoring [RC] CONTINUOUS Care 04/22/19 14:53 Active Intake and Output [RC] 06,, Care 04/22/19 14:53 Active Oxygen Therapy [RC] PRN Care 04/22/19 14:52 Active Peripheral IV Care [RC] Care 04/22/19 13:28 Active RT Aerosol Therapy [RC] ASDIRECTED Care 04/22/19 14:56 Active Up ad Yeni [RC] ASDIRECTED Care 04/22/19 14:52 Active VTE/DVT Education [RC] Care 04/22/19 14:52 Active Vital Signs [RC] Q4H Care 04/22/19 14:52 Active TROPONIN I [CHEM] Routine Lab 04/22/19 20:46 Ordered Acetaminophen [Tylenol Extra Strength] Med 04/22/19 21:00 Active 500 mg PO BEDTIME Acetaminophen [Tylenol] Med 04/22/19 14:52 Active 650 mg PO Q4H PRN Albuterol [Proventil Neb Soln] Med 04/22/19 14:52 Active 2.5 mg NEB Q2H PRN Amiodarone [Cordarone] Med 04/23/19 09:00 Active 200 mg PO DAILY Escitalopram [Lexapro] Med 04/23/19 09:00 Active 20 mg PO DAILY Furosemide [Lasix] Med 04/22/19 20:00 Active 20 mg IVPUSH Q12H Omeprazole Med 04/22/19 21:00 Active 20 mg PO BID Ondansetron [Zofran] Med 04/22/19 14:52 Active 4 mg IVPUSH Q6H PRN Rivaroxaban [Xarelto] Med 04/23/19 09:00 Active 20 mg PO DAILY Sodium Chloride 0.9% [Saline Flush] Med 04/22/19 13:27 Active 10 ml FLUSH ASDIRECTED PRN Sodium Chloride 0.9% [Saline Flush] Med 04/22/19 14:52 Active 10 ml FLUSH ASDIRECTED PRN Tamsulosin [Flomax] Med 04/23/19 09:00 Active 0.4 mg PO DAILY carvediloL [Coreg] Med 04/22/19 21:00 Active 3.125 mg PO BID diphenhydrAMINE [Benadryl] Med 04/22/19 21:00 Active 25 mg PO BEDTIME 6 Minute Walk Test [RT Physical Performance Test] [ Ot 04/22/19 13:29 Active RESPCARE] Stat Peripheral IV Insertion Adult [OM.PC] Stat Ot 04/22/19 13:27 Ordered Saline Lock Insert [OM.PC] Routine Ot 04/22/19 14:52 Ordered Resuscitation Status Routine Resus Stat 04/22/19 14:52 Ordered Medication Orders Acetaminophen (Tylenol) 650 mg PO Q4H PRN PRN Reason: Pain (Mild 1-3)/fever Acetaminophen (Tylenol Extra Strength) 500 mg PO BEDTIME [facility] Last Admin: 04/22/19 20:17 Dose: 500 mg Albuterol (Proventil Neb Soln) 2.5 mg NEB Q2H PRN PRN Reason: shortness of breath/wheezing Amiodarone HCl (Cordarone) 200 mg PO DAILY [facility] Carvedilol (Coreg) 3.125 mg PO BID [facility] Last Admin: 04/22/19 20:17 Dose: 3.125 mg Diphenhydramine HCl (Benadryl) 25 mg PO BEDTIME [facility] Last Admin: 04/22/19 20:17 Dose: 25 mg Escitalopram Oxalate (Lexapro) 20 mg PO DAILY [facility] Furosemide (Lasix) 20 mg IVPUSH Q12H [facility] Last Admin: 04/22/19 20:13 Dose: 20 mg Omeprazole (Omeprazole) 20 mg PO BID [facility] Last Admin: 04/22/19 20:17 Dose: 20 mg Ondansetron HCl (Zofran) 4 mg IVPUSH Q6H PRN PRN Reason: Nausea/Vomiting Rivaroxaban (Xarelto) 20 mg PO DAILY [facility] Sodium Chloride (Saline Flush) 10 ml FLUSH ASDIRECTED PRN PRN Reason: Keep Vein Open Last Admin: 04/22/19 20:13 Dose: 10 ml Admin: 04/22/19 14:27 Dose: 10 ml Admin: 04/22/19 14:09 Dose: 10 ml Sodium Chloride (Saline Flush) 10 ml FLUSH ASDIRECTED PRN PRN Reason: Keep Vein Open Tamsulosin HCl (Flomax) 0.4 mg PO DAILY [facility] Assessment/Plan Comment:: #. Probable acute exacerbation of diastolic congestive heart failure Patient has increased shortness of breath and bilateral lower extremity edema However brain natruretic peptide is only 162 Has no prior history of congestive heart failure #. Atrial fibrillation Patient was status post pacemaker placement On chronic anticoagulation #. Chronic anticoagulations Patient has been uncertain about 2 Continue the same #. Chronic kidney disease Serum creatinine is at 1.4 which is about his baseline #. Hypertension Blood pressure is mostly within acceptable limits #. Benign prostatic hypertrophy Continue Flomax Plan: Admit patient to medical floor Start intravenous Lasix 40 mg every 12 hours Obtain echocardiogram Daily weights Monitor input and output Obtain repeat basic metabolic panel Patient's medical chart reviewed.
[2019-04-22] MEDS ORDERED: Heparin Sodium 5,000 Units/ML Vial SUBCUT SCH (22:00)
[2019-04-23] MEDS ORDERED: Furosemide 40 MG/4 ML VIAL IVPUSH SCH (08:00)
[2019-04-23] MEDS: Omeprazole 20 MG Cap.CR PO SCH ×2 (08:19→20:53)
[2019-04-23] MEDS: Rivaroxaban 10 MG Tab PO SCH (08:19)
[2019-04-23] MEDS: Carvedilol 3.125 MG Tab PO SCH ×2 (08:20→20:54)
[2019-04-23] MEDS: Amiodarone 200 MG Tab PO SCH (08:20)
[2019-04-23] MEDS: Escitalopram 10 MG Tab PO SCH (08:20)
[2019-04-23] MEDS: Furosemide 40 MG/4 ML VIAL IVPUSH SCH ×2 (08:20→15:08)
[2019-04-23] MEDS: Tamsulosin 0.4 MG Cap.ER PO SCH (08:20)
[2019-04-23] MEDS: Sodium Chloride 0.9% 10 ML Syringe FLUSH PRN (08:21)
[2019-04-23 08:29] LABS: ANION GAP 15.2
[2019-04-23] MEDS ORDERED: Potassium Chloride 10 MEQ Tab.ER PO ONE (09:42)
--- NOTE | 2019-04-23 10:47 | PCM.PN ---
- General Info Date of Service: 04/23/19 Subjective Update: Patient offers no new complaint today. Still has some shortness of breath but it is improved. Still has bilateral lower extremity edema. Diuretics are helping. - Review of Systems General: Reports: Weakness, Malaise HEENT: Reports: No Symptoms Pulmonary: Reports: Shortness of Breath Cardiovascular: Reports: Dyspnea on Exertion, Edema, Lightheadedness Gastrointestinal: Reports: No Symptoms Musculoskeletal: Reports: Other (Lower extremity edema) - Patient Data Vitals - Most Recent: Last Vital Signs Temp 36.8 C 04/23/19 07:00 Pulse 78 04/23/19 08:20 Resp 22 H 04/23/19 07:00 BP 152/89 H 04/23/19 08:20 Pulse Ox 95 04/23/19 07:00 Weight - Most Recent: 112.763 kg I&O - Last 24 Hours: Intake & Output 04/22/19 04/23/19 04/23/19 22:59 06:59 14:59 Intake Total 510 400 220 Balance 510 400 220 Lab Results Last 24 Hours: Laboratory Results - last 24 hr 04/22/19 04/22/19 04/22/19 Range/Units 13:39 13:39 21:46 WBC 5.4 (5.0-10.0) 10^3/uL RBC 3.77 L (4.6-6.2) 10^6/uL Hgb 11.3 L (14.0-18.0) g/dL Hct 36.2 L (40.0-54.0) % MCV 96.0 (80-100) fL MCH 30.0 (27.0-34.0) pg MCHC 31.2 L (33.0-35.0) g/dL Plt Count 171 (150-450) 10^3/uL Neut % (Auto) 72.4 (42.2-75.2) % Lymph % (Auto) 14.1 L (20.5-50.1) % [place] % (Auto) 10.9 H (2-8) % Eos % (Auto) 2.0 (1.0-3.0) % Baso % (Auto) 0.6 (0.0-1.0) % Sodium 137 (135-145) mmol/L Potassium 3.9 (3.6-5.0) mmol/L Chloride 99 L (101-111) mmol/L Carbon Dioxide 27.0 (21.0-31.0) mmol/L Anion Gap 14.9 BUN 19 H (7-18) mg/dL Creatinine 1.4 H (0.6-1.3) mg/dL Est Cr Clr Drug Dosing 46.77 mL/min Estimated GFR (MDRD) 49 BUN/Creatinine Ratio 13.57 Glucose 98 (74-105) mg/dL Calcium 8.5 (8.4-10.2) mg/dl Total Bilirubin 1.3 H (0.2-1.0) mg/dL AST 19 (10-42) IU/L ALT 12 (10-60) IU/L Alkaline Phosphatase 105 (42-121) IU/L Troponin I < 0.02 < 0.02 (0.00-0.02) ng/ml B-Natriuretic Peptide 162 H (0-100) pg/ml Total Protein 7.2 (6.7-8.2) g/dl Albumin 3.8 (3.2-5.5) g/dl Globulin 3.4 Albumin/Globulin Ratio 1.12 // Range/Units 07:33 WBC (5.0-10.0) 10^3/uL RBC (4.6-6.2) 10^6/uL Hgb (14.0-18.0) g/dL Hct (40.0-54.0) % MCV (80-100) fL MCH (27.0-34.0) pg MCHC (33.0-35.0) g/dL Plt Count (150-450) 10^3/uL Neut % (Auto) (42.2-75.2) % Lymph % (Auto) (20.5-50.1) % Sampson % (Auto) (2-8) % Eos % (Auto) (1.0-3.0) % Baso % (Auto) (0.0-1.0) % Sodium 138 (135-145) mmol/L Potassium 3.2 L (3.6-5.0) mmol/L Chloride 98 L (101-111) mmol/L Carbon Dioxide 28.0 (21.0-31.0) mmol/L Anion Gap 15.2 BUN 18 (7-18) mg/dL Creatinine 1.3 (0.6-1.3) mg/dL Est Cr Clr Drug Dosing 50.36 mL/min Estimated GFR (MDRD) 53 BUN/Creatinine Ratio Glucose 85 (74-105) mg/dL Calcium 8.2 L (8.4-10.2) mg/dl Total Bilirubin (0.2-1.0) mg/dL AST (10-42) IU/L ALT (10-60) IU/L Alkaline Phosphatase (42-121) IU/L Troponin I (0.00-0.02) ng/ml B-Natriuretic Peptide (0-100) pg/ml Total Protein (6.7-8.2) g/dl Albumin (3.2-5.5) g/dl Globulin Albumin/Globulin Ratio Med Orders - Current: Current Medications Acetaminophen (Tylenol) 650 mg PO Q4H PRN PRN Reason: Pain (Mild 1-3)/fever Acetaminophen (Tylenol Extra Strength) 500 mg PO BEDTIME [facility] Last Admin: 04/22/19 20:17 Dose: 500 mg Albuterol (Proventil Neb Soln) 2.5 mg NEB Q2H PRN PRN Reason: shortness of breath/wheezing Amiodarone HCl (Cordarone) 200 mg PO DAILY [facility] Last Admin: 04/23/19 08:20 Dose: 200 mg Carvedilol (Coreg) 3.125 mg PO BID [facility] Last Admin: 04/23/19 08:20 Dose: 3.125 mg Diphenhydramine HCl (Benadryl) 25 mg PO BEDTIME [facility] Last Admin: 04/22/19 20:17 Dose: 25 mg Escitalopram Oxalate (Lexapro) 20 mg PO DAILY [facility] Last Admin: 04/23/19 08:20 Dose: 20 mg Furosemide (Lasix) 40 mg IVPUSH BIDDIURETIC [facility] Last Admin: 04/23/19 08:20 Dose: 40 mg Omeprazole (Omeprazole) 20 mg PO BID [facility] Last Admin: 04/23/19 08:19 Dose: 20 mg Ondansetron HCl (Zofran) 4 mg IVPUSH Q6H PRN PRN Reason: Nausea/Vomiting Rivaroxaban (Xarelto) 20 mg PO DAILY [facility] Last Admin: 04/23/19 08:19 Dose: 20 mg Sodium Chloride (Saline Flush) 10 ml FLUSH ASDIRECTED PRN PRN Reason: Keep Vein Open Last Admin: 04/23/19 08:21 Dose: 10 ml Sodium Chloride (Saline Flush) 10 ml FLUSH ASDIRECTED PRN PRN Reason: Keep Vein Open Tamsulosin HCl (Flomax) 0.4 mg PO DAILY [facility] Last Admin: 04/23/19 08:20 Dose: 0.4 mg Discontinued Medications Furosemide (Lasix) 80 mg IVPUSH NOW ONE Stop: 04/22/19 14:21 Last Admin: 04/22/19 14:25 Dose: 80 mg Furosemide (Lasix) 20 mg IVPUSH Q12H [facility] Last Admin: 04/22/19 20:13 Dose: 20 mg Furosemide (Lasix) 40 mg IVPUSH Q12H [facility] Last Admin: 04/23/19 00:32 Dose: Not Given Heparin Sodium (Porcine) (Heparin Sodium) 5,000 units SUBCUT Q8HR [facility] Potassium Chloride (Klor-Con 10) 40 meq PO ONETIME ONE Stop: 04/23/19 09:43 Tramadol HCl (Ultram) 50 mg PO ASDIRECTED [facility] - Exam General: Alert, Oriented, Cooperative Neck: Supple Lungs: Decreased Breath Sounds, Crackles Cardiovascular: Regular Rate, Regular Rhythm GI/Abdominal Exam: Normal Bowel Sounds, Soft, Non-Tender, No Organomegaly, No Distention, No Abnormal Bruit, No Mass, Pelvis Stable Extremities: Pedal Edema Sepsis Event Note - Evaluation Sepsis Screening Result: No Definite Risk - Focused Exam Vital Signs: Vital Signs Temp Pulse Pulse Resp BP BP Pulse Ox 04/23/19 08:20 78 152/89 H 04/23/19 07:00 36.8 C 78 22 H 152/89 H 95 04/23/19 03:30 37.3 C 66 18 140/86 95 Date Exam was Performed: 04/23/19 Time Exam was Performed: 10:44 - Problem List Review Problem List Initiated/Reviewed/Updated: Yes - My Orders Last 24 Hours: My Active Orders 04/22/19 14:52 Patient Status [ADT] Routine Oxygen Therapy [RC] PRN Up ad Yeni [RC] ASDIRECTED VTE/DVT Education [RC] Vital Signs [RC] Q4H Acetaminophen [Tylenol] 650 mg PO Q4H PRN Albuterol [Proventil Neb Soln] 2.5 mg NEB Q2H PRN Ondansetron [Zofran] 4 mg IVPUSH Q6H PRN Sodium Chloride 0.9% [Saline Flush] 10 ml FLUSH ASDIRECTED PRN Saline Lock Insert [OM.PC] Routine Resuscitation Status Routine 04/22/19 14:53 Cardiac Monitoring [RC] 08,20 Intake and Output [RC] 06,14,22 04/22/19 14:56 RT Aerosol Therapy [RC] ASDIRECTED 04/22/19 21:00 Acetaminophen [Tylenol Extra Strength] 500 mg PO BEDTIME Omeprazole 20 mg PO BID carvediloL [Coreg] 3.125 mg PO BID diphenhydrAMINE [Benadryl] 25 mg PO BEDTIME 04/23/19 08:00 Furosemide [Lasix] 40 mg IVPUSH BIDDIURETIC 04/23/19 09:00 Amiodarone [Cordarone] 200 mg PO DAILY Escitalopram [Lexapro] 20 mg PO DAILY Rivaroxaban [Xarelto] 20 mg PO DAILY Tamsulosin [Flomax] 0.4 mg PO DAILY 04/23/19 21:44 Echo Comp wo Cont [US] Routine 04/24/19 05:43 BASIC METABOLIC PANEL,BMP [CHEM] Routine - Plan Plan:: #. Probable acute exacerbation of diastolic congestive heart failure Patient has increased shortness of breath and bilateral lower extremity edema Obtain echocardiogram Intravenous Lasix Obtain repeat basic metabolic panel #. Atrial fibrillation Patient was status post pacemaker placement On chronic anticoagulation #. Chronic anticoagulations Patient has been on Coumadin Continue the same #. Chronic kidney disease Trend electrolytes and creatinine #. Hypertension Blood pressure is mostly within acceptable limits #. Benign prostatic hypertrophy Continue Flomax Patient's medical chart reviewed. Discussed with charge nurse
[2019-04-23] MEDS: diphenhydrAMINE 25 MG Tab PO SCH (20:52)
[2019-04-23] MEDS: Acetaminophen 500 MG Tab PO SCH (20:55)
[2019-04-24 06:59] LABS: ANION GAP 14.6
[2019-04-24] MEDS: Rivaroxaban 10 MG Tab PO SCH (10:03)
[2019-04-24] MEDS: Furosemide 40 MG/4 ML VIAL IVPUSH SCH (10:03)
[2019-04-24] MEDS: Omeprazole 20 MG Cap.CR PO SCH (10:03)
[2019-04-24] MEDS: Amiodarone 200 MG Tab PO SCH (10:04)
[2019-04-24] MEDS: Tamsulosin 0.4 MG Cap.ER PO SCH (10:04)
[2019-04-24] MEDS: Escitalopram 10 MG Tab PO SCH (10:04)
[2019-04-24] MEDS: Carvedilol 3.125 MG Tab PO SCH (10:05)
--- NOTE | 2019-04-24 11:45 | PCM.DCSUM1 ---
Discharge Summary - Hospital Course Free Text/Narrative:: The patient presented to the emergency room with complaint of shortness of breath. Chest x-ray showed pulmonary vascular congestion and the patient requires supplemental oxygen. We started patient on intravenous diuretics and his respiration has improved. The patient will be discharged on increased dose of diuretic. #. Probable acute exacerbation of diastolic congestive heart failure #. Atrial fibrillation Patient was status post pacemaker placement On chronic anticoagulation #. Chronic anticoagulations Patient has been on Coumadin Continue the same #. Chronic kidney disease Obtain repeat basic metabolic panel as outpatient #. Hypertension Blood pressure is mostly within acceptable limits #. Benign prostatic hypertrophy Continue Flomax - Discharge Data Discharge Date: 04/24/19 Discharge Disposition: Home, Self-Care 01 Condition: Good - Referral to Home Health Primary Care Physician: Orly Cox PA-C - Patient Instructions Activity: As Tolerated Driving: May Drive Today Other/Special Instructions: BMP in one week. F/up with PMD in one week - Discharge Plan *PRESCRIPTION DRUG MONITORING PROGRAM REVIEWED*: No *COPY OF PRESCRIPTION DRUG MONITORING REPORT IN PATIENT DANILO: No Prescriptions/Med Rec: Furosemide 80 mg PO DAILY #60 tablet Home Medications: Home Meds Tamsulosin [Flomax] 1 tab PO DAILY 04/24/17 [History] Amiodarone [Cordarone] 200 mg PO DAILY 10/30/17 [History] Escitalopram [Lexapro] 20 mg PO DAILY 10/30/17 [History] Rivaroxaban [Xarelto] 20 mg PO DAILY 10/30/17 [History] carvediloL [Carvedilol] 3.125 mg PO BID 10/30/17 [History] Acetaminophen/Diphenhydramine [Tylenol Pm Ex-Strength Caplet] 1 tab PO BEDTIME 03/31/19 [History] Nitroglycerin 0.4 mg PO ASDIRECTED PRN 03/31/19 [History] Omeprazole 20 mg PO DAILY 03/31/19 [History] hydrOXYzine HCL [Hydroxyzine HCl] 25 mg PO DAILY 03/31/19 [History] Furosemide 80 mg PO DAILY #60 tablet 04/24/19 [Rx] Patient Handouts: Furosemide tablets, Heart Failure, [id number] Referrals: Olry Cox PA-C [Primary Care Provider] - - Discharge Summary/Plan Comment DC Time >30 min.: No - Review of Systems General: Reports: No Symptoms Pulmonary: Reports: No Symptoms Cardiovascular: Reports: No Symptoms - Patient Data Vitals - Most Recent: Last Vital Signs Temp 37.1 C 04/24/19 08:00 Pulse 69 04/24/19 10:05 Resp 22 H 04/24/19 08:00 BP 119/73 04/24/19 10:05 Pulse Ox 97 04/24/19 08:00 Weight - Most Recent: 111.856 kg I&O - Last 24 hours: Intake & Output 04/23/19 04/24/19 04/24/19 22:59 06:59 14:59 Intake Total 240 500 240 Balance 240 500 240 Lab Results - Last 24 hrs: Laboratory Results - last 24 hr 04/24/19 Range/Units 06:24 Sodium 138 (135-145) mmol/L Potassium 3.6 (3.6-5.0) mmol/L Chloride 99 L (101-111) mmol/L Carbon Dioxide 28.0 (21.0-31.0) mmol/L Anion Gap 14.6 BUN 23 H (7-18) mg/dL Creatinine 1.4 H (0.6-1.3) mg/dL Est Cr Clr Drug Dosing 46.77 mL/min Estimated GFR (MDRD) 49 Glucose 96 (74-105) mg/dL Calcium 8.3 L (8.4-10.2) mg/dl Med Orders - Current: Current Medications Acetaminophen (Tylenol) 650 mg PO Q4H PRN PRN Reason: Pain (Mild 1-3)/fever Acetaminophen (Tylenol Extra Strength) 500 mg PO BEDTIME [facility] Last Admin: 04/23/19 20:55 Dose: 500 mg Albuterol (Proventil Neb Soln) 2.5 mg NEB Q2H PRN PRN Reason: shortness of breath/wheezing Amiodarone HCl (Cordarone) 200 mg PO DAILY [facility] Last Admin: 04/24/19 10:04 Dose: 200 mg Carvedilol (Coreg) 3.125 mg PO BID [facility] Last Admin: 04/24/19 10:05 Dose: 3.125 mg Diphenhydramine HCl (Benadryl) 25 mg PO BEDTIME [facility] Last Admin: 04/23/19 20:52 Dose: 25 mg Escitalopram Oxalate (Lexapro) 20 mg PO DAILY [facility] Last Admin: 04/24/19 10:04 Dose: 20 mg Furosemide (Lasix) 40 mg IVPUSH BIDDIURETIC [facility] Last Admin: 04/24/19 10:03 Dose: 40 mg Omeprazole (Omeprazole) 20 mg PO BID [facility] Last Admin: 04/24/19 10:03 Dose: 20 mg Ondansetron HCl (Zofran) 4 mg IVPUSH Q6H PRN PRN Reason: Nausea/Vomiting Rivaroxaban (Xarelto) 20 mg PO DAILY [facility] Last Admin: 04/24/19 10:03 Dose: 20 mg Sodium Chloride (Saline Flush) 10 ml FLUSH ASDIRECTED PRN PRN Reason: Keep Vein Open Tamsulosin HCl (Flomax) 0.4 mg PO DAILY [facility] Last Admin: 04/24/19 10:04 Dose: 0.4 mg Discontinued Medications Furosemide (Lasix) 80 mg IVPUSH NOW ONE Stop: 04/22/19 14:21 Last Admin: 04/22/19 14:25 Dose: 80 mg Furosemide (Lasix) 20 mg IVPUSH Q12H [facility] Last Admin: 04/22/19 20:13 Dose: 20 mg Furosemide (Lasix) 40 mg IVPUSH Q12H [facility] Last Admin: 04/23/19 00:32 Dose: Not Given Heparin Sodium (Porcine) (Heparin Sodium) 5,000 units SUBCUT Q8HR [facility] Potassium Chloride (Klor-Con 10) 40 meq PO ONETIME ONE Stop: 04/23/19 09:43 Last Admin: 04/23/19 10:45 Dose: 40 meq Sodium Chloride (Saline Flush) 10 ml FLUSH ASDIRECTED PRN PRN Reason: Keep Vein Open Last Admin: 04/23/19 08:21 Dose: 10 ml Tramadol HCl (Ultram) 50 mg PO ASDIRECTED [facility] - Exam General: Reports: Alert, Oriented, Cooperative Neck: Reports: Supple Lungs: Reports: Crackles Cardiovascular: Reports: Regular Rate, Regular Rhythm Extremities: Pedal Edema
== END 2019-04-24 12:50 | disposition home or self-care (01) | DRG 291 ==
LOC: DL.ED 12:26 → DL.MS 14:52
PROVIDERS: ADMIT Hospitalist; ATTEND Hospitalist
DX: J90 Pleural effusion, not elsewhere classified (principal); I13.0 Hypertensive heart and chronic kidney disease with heart failure and stage 1 through stage 4 chronic kidney disease, or unspecified chronic kidney disease; R06.09 Other forms of dyspnea; I50.31 Acute diastolic (congestive) heart failure; I48.91 Unspecified atrial fibrillation; I10 Essential (primary) hypertension; N18.9 Chronic kidney disease, unspecified; N40.0 Benign prostatic hyperplasia without lower urinary tract symptoms; K21.9 Gastro-esophageal reflux disease without esophagitis; R09.02 Hypoxemia; I25.10 Atherosclerotic heart disease of native coronary artery without angina pectoris; Z79.899 Other long term (current) drug therapy; M19.90 Unspecified osteoarthritis, unspecified site; F32.9 Major depressive disorder, single episode, unspecified; E66.9 Obesity, unspecified; Z79.01 Long term (current) use of anticoagulants; Z95.0 Presence of cardiac pacemaker; Z98.49 Cataract extraction status, unspecified eye; Z95.810 Presence of automatic (implantable) cardiac defibrillator
CPT/HCPCS: 36415; 71046; 80053; 83880; 84484; 85025; 96374; 99285; J1940; 80048; A9270-GY

== ENCOUNTER 2019-05-29 18:06 | Emergency (ER) | payer MEDICARE, OTHER ==
[2019-05-29] MEDS ORDERED: Sodium Chloride 0.9% 10 ML Syringe FLUSH PRN (19:00)
--- NOTE | 2019-05-29 19:40 | EDM.PDOC ---
ED HPI GENERAL MEDICAL PROBLEM - General Chief Complaint: General Stated Complaint: COUGHING UP BLOOD Time Seen by Provider: 05/29/19 19:01 Source of Information: Reports: Patient, RN, RN Notes Reviewed History Limitations: Reports: No Limitations - History of Present Illness INITIAL COMMENTS - FREE TEXT/NARRATIVE: patient presents to ER with complaint of coughing/vomiting blood. Patient states it was solid red blood, with no clots, not coffee grounds. Patient states this happened once yesterday and once today, with less blood today. Patient states he would cough until he threw up the blood. Patient states increased shortness of breath for the past few weeks, progressively getting worse. Patient admits to chills daily, nausea times, dizziness at times. Denies diarrhea or chest pains. Patient also admits to recent penile bleeding. Patient states he saw urology today and [place]. Urologist did stop this around toe today. Patient recently stopped amiodarone about 5 days ago. Onset: Gradual Duration: Intermittent - Related Data Allergies Allergy/AdvReac Type Severity Reaction Status Date / Time No Known Allergies Allergy Verified 05/29/19 18:40 Home Meds: Home Meds Tamsulosin [Flomax] 1 tab PO DAILY 04/24/17 [History] Escitalopram [Lexapro] 20 mg PO DAILY 10/30/17 [History] carvediloL [Carvedilol] 3.125 mg PO BID 10/30/17 [History] Acetaminophen/Diphenhydramine [Tylenol Pm Ex-Strength Caplet] 1 tab PO BEDTIME 03/31/19 [History] Nitroglycerin 0.4 mg PO ASDIRECTED PRN 03/31/19 [History] Omeprazole 20 mg PO DAILY 03/31/19 [History] hydrOXYzine HCL [Hydroxyzine HCl] 25 mg PO DAILY 03/31/19 [History] Furosemide 80 mg PO DAILY #60 tablet 04/24/19 [Rx] Past Medical History HEENT History: Reports: Head, Other (See Below) Other HEENT History: wears hearing aides Cardiovascular History: Reports: Afib, CAD, Hypertension Respiratory History: Reports: None Other Respiratory History: recent URI Gastrointestinal History: Reports: None Genitourinary History: Reports: BPH, Prostate Disorder Musculoskeletal History: Reports: Osteoarthritis, Other (See Below) Other Musculoskeletal History: neck pain. Neurological History: Reports: None Psychiatric History: Reports: Depression Endocrine/Metabolic History: Reports: Obesity/BMI 30+ Hematologic History: Reports: None Immunologic History: Reports: None Oncologic (Cancer) History: Reports: None Dermatologic History: Reports: None - Infectious Disease History Infectious Disease History: Reports: None Other Infectious Disease History: unsure cant remember - Past Surgical History HEENT Surgical History: Reports: Cataract Surgery, Other (See Below) Cardiovascular Surgical History: Reports: Pacer Other Cardiovascular Surgeries/Procedures: reports pacer removed, defibrilator insirted Social & Family History - Family History Family Medical History: Noncontributory - Tobacco Use Smoking Status *Q: Never Smoker - Caffeine Use Caffeine Use: Reports: Soda Other Caffeine Use: 2-3 cans per day - Recreational Drug Use Recreational Drug Use: No - Living Situation & Occupation Living situation: Reports: , Alone Occupation: Retired ED ROS GENERAL - Review of Systems Review Of Systems: Comprehensive ROS is negative, except as noted in HPI. ED EXAM, GENERAL - Physical Exam Exam: See Below Exam Limited By: No Limitations General Appearance: Alert, WD/WN, No Apparent Distress Eye Exam: Bilateral Eye: EOMI, Normal Inspection Ears: Normal External Exam, Hearing Grossly Normal Nose: Normal Inspection Throat/Mouth: Normal Inspection, Normal Voice, No Airway Compromise Head: Atraumatic, Normocephalic Neck: Normal Inspection Respiratory/Chest: No Respiratory Distress, Decreased Breath Sounds, Crackles ( findings were all) Cardiovascular: Normal Peripheral Pulses, Regular Rate, Rhythm, No Edema, No Gallop, No JVD, No Murmur, No Rub, Other (pacemaker) Peripheral Pulses: 2+: Radial (L), Radial (R) GI/Abdominal: Normal Bowel Sounds, Soft, Non-Tender (Male) Exam: Deferred Rectal (Males) Exam: Deferred Back Exam: Normal Inspection, Decreased Range of Motion Extremities: Normal Inspection, Normal Range of Motion, Non-Tender, Normal Capillary Refill, No Pedal Edema Neurological: Alert, Oriented, CN II-XII Intact, Normal Cognition, Normal Gait, Normal Reflexes, No Motor/Sensory Deficits Psychiatric: Normal Affect, Normal Mood Skin Exam: Warm, Dry, Intact, Normal Color, No Rash Lymphatic: No Adenopathy Course - Vital Signs Last Recorded V/S: Last Vital Signs Temp 98.2 F 05/29/19 18:32 Pulse 79 05/29/19 18:32 Resp 24 H 05/29/19 18:32 BP 140/69 05/29/19 18:32 Pulse Ox 98 05/29/19 18:32 - Orders/Labs/Meds Orders: Active Orders 24 hr Category Date Time Status EKG Documentation Completion [RC] STAT Care 05/29/19 19:00 Active Peripheral IV Care [RC] . DIRECTED Care 05/29/19 19:00 Active CULTURE BLOOD [BC] Stat Lab 05/29/19 19:10 Results CULTURE BLOOD [BC] Stat Lab 05/29/19 19:15 Received Blood Culture x2 Reflex Set [OM.PC] Stat Oth 05/29/19 19:00 Ordered Peripheral IV Insertion Adult [OM.PC] Stat Oth 05/29/19 19:00 Ordered Labs: Laboratory Tests 05/29/19 05/29/19 05/29/19 Range/Units 19:15 19:15 19:15 WBC 5.1 (5.0-10.0) 10^3/uL RBC 3.65 L (4.6-6.2) 10^6/uL Hgb 11.1 L (14.0-18.0) g/dL Hct 35.8 L (40.0-54.0) % MCV 98.1 (80-100) fL MCH 30.4 (27.0-34.0) pg MCHC 31.0 L (33.0-35.0) g/dL Plt Count 171 (150-450) 10^3/uL Neut % (Auto) 72.9 (42.2-75.2) % Lymph % (Auto) 13.2 L (20.5-50.1) % [place] % (Auto) 12.1 H (2-8) % Eos % (Auto) 1.6 (1.0-3.0) % Baso % (Auto) 0.2 (0.0-1.0) % PT 13.6 H (9.0-12.0) SEC INR 1.3 H (0.9-1.2) Sodium 139 (135-145) mmol/L Potassium 3.6 (3.6-5.0) mmol/L Chloride 102 (101-111) mmol/L Carbon Dioxide 27.0 (21.0-31.0) mmol/L Anion Gap 13.6 BUN 23 H (7-18) mg/dL Creatinine 1.5 H (0.6-1.3) mg/dL Est Cr Clr Drug Dosing 43.65 mL/min Estimated GFR (MDRD) 45 BUN/Creatinine Ratio 15.33 Glucose 104 (74-105) mg/dL Lactic Acid (0.5-2.0) mmol/L Calcium 8.6 (8.4-10.2) mg/dl Total Bilirubin 1.5 H (0.2-1.0) mg/dL AST 16 (10-42) IU/L ALT 11 (10-60) IU/L Alkaline Phosphatase 122 H (42-121) IU/L B-Natriuretic Peptide 207 H (0-100) pg/ml Total Protein 7.2 (6.7-8.2) g/dl Albumin 4.0 (3.2-5.5) g/dl Globulin 3.2 Albumin/Globulin Ratio 1.25 /11/08 Range/Units 19:15 WBC (5.0-10.0) 10^3/uL RBC (4.6-6.2) 10^6/uL Hgb (14.0-18.0) g/dL Hct (40.0-54.0) % MCV (80-100) fL MCH (27.0-34.0) pg MCHC (33.0-35.0) g/dL Plt Count (150-450) 10^3/uL Neut % (Auto) (42.2-75.2) % Lymph % (Auto) (20.5-50.1) % [place] % (Auto) (2-8) % Eos % (Auto) (1.0-3.0) % Baso % (Auto) (0.0-1.0) % PT (9.0-12.0) SEC INR (0.9-1.2) Sodium (135-145) mmol/L Potassium (3.6-5.0) mmol/L Chloride (101-111) mmol/L Carbon Dioxide (21.0-31.0) mmol/L Anion Gap BUN (7-18) mg/dL Creatinine (0.6-1.3) mg/dL Est Cr Clr Drug Dosing mL/min Estimated GFR (MDRD) BUN/Creatinine Ratio Glucose (74-105) mg/dL Lactic Acid 1.8 (0.5-2.0) mmol/L Calcium (8.4-10.2) mg/dl Total Bilirubin (0.2-1.0) mg/dL AST (10-42) IU/L ALT (10-60) IU/L Alkaline Phosphatase (42-121) IU/L B-Natriuretic Peptide (0-100) pg/ml Total Protein (6.7-8.2) g/dl Albumin (3.2-5.5) g/dl Globulin Albumin/Globulin Ratio Meds: Medications Discontinued Medications Generic Name Dose Route Start Last Admin Trade Name Freq PRN Reason Stop Dose Admin Amoxicillin/Clavulanate Potassium 1 tab 05/29/19 21:19 05/29/19 21:38 Augmentin 875 Mg/125 Mg PO 05/29/19 21:20 1 tab ONETIME ONE Administration Sodium Chloride 10 ml 05/29/19 19:00 05/29/19 19:23 Saline Flush FLUSH 10 ml ASDIRECTED PRN Administration Keep Vein Open - Radiology Interpretation Free Text/Narrative:: Chest xray: FINDINGS: Tubes, catheters and devices: A pacemaker device is present and its leads are in appropriate position. Lungs: There is nonspecific consolidation in the left lung base. Pleural space: There are no pleural effusions present. Heart/Mediastinum: The heart demonstrates mild diffuse enlargement. The pulmonary arteries are not enlarged. Bones/joints: Unremarkable IMPRESSION: 1. Left basilar atelectasis or pneumonia. 2. Mild cardiomegaly. Thank you for allowing us to participate in the care of your patient. Dictated and Authenticated by: Edison Wasserman MD 05/29/2019 7:36 PM Central Time ([place] & [place]) See rad report Departure - Departure Time of Disposition: 21:16 Disposition: Home, Self-Care 01 Condition: Fair Clinical Impression: CHF, Congestive heart failure, Hemoptysis, unspecified, Pneumonia - Discharge Information *PRESCRIPTION DRUG MONITORING PROGRAM REVIEWED*: No *COPY OF PRESCRIPTION DRUG MONITORING REPORT IN PATIENT DANILO: No Instructions: Cough, Adult, [id number], Hemoptysis, [id number], Heart Failure, [id number], Heart Failure Exacerbation, Community-Acquired Pneumonia , Adult, [id number] Referrals: Nadir,Somasundar, MD [Primary Care Provider] - Forms: ED Department Discharge Additional Instructions: RX: Furosemide 80mg orally twice daily Potassium Chloride 20meq orally twice daily Augmentin 875mg orally twice daily for 10 days Follow up with Caty Cox PA-C next week Please have her draw a BMP for recheck of kidney function and Potassium Return to the ER with any worsening of symptoms Sepsis Event Note - Evaluation Sepsis Screening Result: No Definite Risk - Focused Exam Vital Signs: Vital Signs Temp Pulse Resp BP Pulse Ox 05/29/19 18:32 98.2 F 79 24 H 140/69 98 Date Exam was Performed: 05/30/19 Time Exam was Performed: 01:07 - My Orders Last 24 Hours: My Active Orders 05/29/19 19:00 EKG Documentation Completion [RC] STAT Peripheral IV Care [RC] . DIRECTED Blood Culture x2 Reflex Set [OM.PC] Stat Peripheral IV Insertion Adult [OM.PC] Stat 05/29/19 19:10 CULTURE BLOOD [BC] Stat 05/29/19 19:15 CULTURE BLOOD [BC] Stat - Assessment/Plan Last 24 Hours: My Active Orders 05/29/19 19:00 EKG Documentation Completion [RC] STAT Peripheral IV Care [RC] . DIRECTED Blood Culture x2 Reflex Set [OM.PC] Stat Peripheral IV Insertion Adult [OM.PC] Stat 05/29/19 19:10 CULTURE BLOOD [BC] Stat 05/29/19 19:15 CULTURE BLOOD [BC] Stat
[2019-05-29 19:43] LABS: ANION GAP 13.6
[2019-05-29] MEDS ORDERED: Amoxicillin/Clavulanate K 875-125 MG Tab PO ONE (21:19)
== END 2019-05-29 21:47 | disposition home or self-care (01) ==
LOC: DL.ED 18:06
DX: R04.2 Hemoptysis (principal); J18.9 Pneumonia, unspecified organism; I11.0 Hypertensive heart disease with heart failure; I50.9 Heart failure, unspecified; N40.0 Benign prostatic hyperplasia without lower urinary tract symptoms; F32.9 Major depressive disorder, single episode, unspecified; E66.9 Obesity, unspecified; Z68.34 Body mass index [BMI] 34.0-34.9, adult; Z79.899 Other long term (current) drug therapy
CPT/HCPCS: 36415; 71045; 80053; 83605; 83880; 85025; 85610; 87040; 93005; 99284; A9270

== ENCOUNTER 2019-06-16 10:23 | Emergency (ER) | payer MEDICARE, OTHER ==
--- NOTE | 2019-06-16 11:08 | EDM.PDOC ---
<Den Fabian - Last Filed: 06/16/19 12:46> ED HPI GENERAL MEDICAL PROBLEM - General Chief Complaint: Respiratory Problem Stated Complaint: LEFT LUNG SHORT OF BREATH Time Seen by Provider: 06/16/19 11:03 Source of Information: Reports: Patient, RN, RN Notes Reviewed History Limitations: Reports: No Limitations - History of Present Illness INITIAL COMMENTS - FREE TEXT/NARRATIVE: Patient presents to the ER for complaints of shortness of breath for the past 3 days has had an uncomfortable feeling "in my left chest". Points to left lower side/back area. States that 2 weeks ago he had his left lung drained in the area that is bothering him. Lungs with little air movement and very diminished approx. 1/2 up left lung. States they are unsure why he had fluid in his lung but was treated for pneumonia. Finished Augmentin 4 days ago. Denies fever but has noticed some chills in the last 3 days. Pt. feels his abd. is distended also. Has some firmness in RUQ. Peter Caro is his lung specialist at [facility]. Onset: Gradual Duration: Day(s): (3-4 days) Location: Reports: Chest, Abdomen Severity: Mild Improves with: Reports: None Worsens with: Reports: None Associated Symptoms: Reports: No Other Symptoms - Related Data Allergies Allergy/AdvReac Type Severity Reaction Status Date / Time No Known Allergies Allergy Verified 06/16/19 10:36 Home Meds: Home Meds Tamsulosin [Flomax] 1 tab PO DAILY 04/24/17 [History] Escitalopram [Lexapro] 20 mg PO DAILY 10/30/17 [History] carvediloL [Carvedilol] 3.125 mg PO BID 10/30/17 [History] Acetaminophen/Diphenhydramine [Tylenol Pm Ex-Strength Caplet] 1 tab PO BEDTIME 03/31/19 [History] Nitroglycerin 0.4 mg PO ASDIRECTED PRN 03/31/19 [History] Omeprazole 20 mg PO DAILY 03/31/19 [History] hydrOXYzine HCL [Hydroxyzine HCl] 25 mg PO DAILY 03/31/19 [History] Furosemide 80 mg PO DAILY #60 tablet 04/24/19 [Rx] Aspirin 81 mg PO DAILY 02/25/20 [History] Levothyroxine [Synthroid] 50 mcg PO DAILY 06/16/19 [History] Potassium Chloride 20 meq PO DAILY 06/16/19 [History] Past Medical History HEENT History: Reports: Head, Other (See Below) Other HEENT History: wears hearing aides Cardiovascular History: Reports: Afib, CAD, Hypertension Respiratory History: Reports: None Other Respiratory History: recent URI Gastrointestinal History: Reports: None Genitourinary History: Reports: BPH, Prostate Disorder Musculoskeletal History: Reports: Osteoarthritis, Other (See Below) Other Musculoskeletal History: neck pain. Neurological History: Reports: None Psychiatric History: Reports: Depression Endocrine/Metabolic History: Reports: Obesity/BMI 30+ Hematologic History: Reports: None Immunologic History: Reports: None Oncologic (Cancer) History: Reports: None Dermatologic History: Reports: None - Infectious Disease History Infectious Disease History: Reports: None Other Infectious Disease History: unsure cant remember - Past Surgical History HEENT Surgical History: Reports: Cataract Surgery, Other (See Below) Cardiovascular Surgical History: Reports: Pacer Other Cardiovascular Surgeries/Procedures: reports pacer removed, defibrilator insirted Social & Family History - Family History Family Medical History: Noncontributory - Caffeine Use Caffeine Use: Reports: Soda Other Caffeine Use: 2-3 cans per day - Living Situation & Occupation Living situation: Reports: , Alone Occupation: Retired ED ROS GENERAL - Review of Systems Review Of Systems: Comprehensive ROS is negative, except as noted in HPI. ED EXAM, GENERAL - Physical Exam Exam: See Below Exam Limited By: No Limitations General Appearance: Alert, WD/WN, No Apparent Distress Head: Atraumatic, Normocephalic Neck: Normal Inspection, Supple, Non-Tender, Full Range of Motion Respiratory/Chest: No Respiratory Distress, No Accessory Muscle Use, Chest Non- Tender, Crackles (Left lower lobe). No: Wheezing, Retractions Cardiovascular: Normal Peripheral Pulses, Regular Rate, Rhythm, No Edema, No Gallop, No JVD, No Murmur, No Rub GI/Abdominal: Normal Bowel Sounds, Non-Tender, No Organomegaly, No Abnormal Bruit, No Mass. No: Guarding, Rigid Back Exam: Normal Inspection, Full Range of Motion, NT Extremities: Normal Inspection, Normal Range of Motion, Non-Tender, Normal Capillary Refill, No Pedal Edema Neurological: Alert, Oriented, CN II-XII Intact, Normal Cognition, Normal Gait, Normal Reflexes, No Motor/Sensory Deficits Psychiatric: Normal Affect, Normal Mood Skin Exam: Warm, Dry, Intact, Normal Color, No Rash Lymphatic: No Adenopathy Course - Vital Signs Last Recorded V/S: Last Vital Signs Temp 36.1 C 06/16/19 10:36 Pulse 84 06/16/19 10:36 Resp 20 06/16/19 10:36 BP 145/57 H 06/16/19 10:36 Pulse Ox 98 06/16/19 10:36 - Orders/Labs/Meds Orders: Active Orders 24 hr Category Date Time Status EKG Documentation Completion [RC] STAT Care 06/16/19 11:01 Active Abdomen 2V AP Flat Upright [CR] Urgent Exams 06/16/19 11:01 Taken Chest 2V [CR] Urgent Exams 06/16/19 11:01 Taken Labs: Laboratory Tests 06/16/19 06/16/19 06/16/19 Range/Units 11:14 11:14 11:40 WBC 4.8 L (5.0-10.0) 10^3/uL RBC 3.70 L (4.6-6.2) 10^6/uL Hgb 11.3 L (14.0-18.0) g/dL Hct 35.7 L (40.0-54.0) % MCV 96.5 (80-100) fL MCH 30.5 (27.0-34.0) pg MCHC 31.7 L (33.0-35.0) g/dL Plt Count 162 (150-450) 10^3/uL Neut % (Auto) 75.4 H (42.2-75.2) % Lymph % (Auto) 13.4 L (20.5-50.1) % [place] % (Auto) 8.7 H (2-8) % Eos % (Auto) 2.3 (1.0-3.0) % Baso % (Auto) 0.2 (0.0-1.0) % Sodium 137 (135-145) mmol/L Potassium 3.7 (3.6-5.0) mmol/L Chloride 100 L (101-111) mmol/L Carbon Dioxide 28.0 (21.0-31.0) mmol/L Anion Gap 12.7 BUN 27 H (7-18) mg/dL Creatinine 1.5 H (0.6-1.3) mg/dL Est Cr Clr Drug Dosing 42.39 mL/min Estimated GFR (MDRD) 45 BUN/Creatinine Ratio 18.00 Glucose 91 (74-105) mg/dL Calcium 8.4 (8.4-10.2) mg/dl Total Bilirubin 1.4 H (0.2-1.0) mg/dL AST 20 (10-42) IU/L ALT 10 (10-60) IU/L Alkaline Phosphatase 139 H (42-121) IU/L B-Natriuretic Peptide 184 H (0-100) pg/ml Total Protein 7.2 (6.7-8.2) g/dl Albumin 3.9 (3.2-5.5) g/dl Globulin 3.3 Albumin/Globulin Ratio 1.18 Urine Color Dark yellow (YELLOW) Urine Appearance Turbid (CLEAR) Urine pH 6.5 (5.0-9.0) Ur Specific [place] 1.025 (1.005-1.030) Urine Protein 100 H (NEGATIVE) Urine Glucose (UA) Negative (NEGATIVE) Urine Ketones Negative (NEGATIVE) Urine Occult Blood Large H (NEGATIVE) Urine Nitrite Negative (NEGATIVE) Urine Bilirubin Small H (NEGATIVE) Urine Urobilinogen 2.0 H (0.2-1.0) mg/dL Ur Leukocyte Esterase Negative (NEGATIVE) Urine RBC Semi-packed H /HPF Urine WBC Not seen (0-5/HPF) /HPF Ur Epithelial Cells Rare (NOT SEEN) /HPF Urine Bacteria Rare (0-FEW/HPF) /HPF Urine Mucus Few H (NOT SEEN) /LPF Departure - Departure Time of Disposition: 13:00 Disposition: Home, Self-Care 01 Condition: Good Clinical Impression: Recurrent left pleural effusion - Discharge Information *PRESCRIPTION DRUG MONITORING PROGRAM REVIEWED*: Not Applicable *COPY OF PRESCRIPTION DRUG MONITORING REPORT IN PATIENT DANILO: Not Applicable Instructions: Shortness of Breath, Adult, [id number], Pleural Effusion Forms: ED Department Discharge Additional Instructions: You have a stable pleural effusion of your left lung. Your primary doctor is scheduling a referral for you to [facility] in [place]. They will call you when the appointment is scheduled and let you know what time the appointment is. If you have any increasing shortness of breath or increased pain you should return to the ER. Sepsis Event Note - Evaluation Sepsis Screening Result: No Definite Risk - Focused Exam Vital Signs: Vital Signs Temp Pulse Resp BP Pulse Ox 06/16/19 10:36 36.1 C 84 20 145/57 H 98 Date Exam was Performed: 06/16/19 Time Exam was Performed: 12:46 <Georges Hahn - Last Filed: 06/16/19 13:01> Course - Re-Assessments/Exams Free Text/Narrative Re-Assessment/Exam: 06/16/19 13:01 I have examined the patient. I have discussed findings and treatment plan with the PA student. I agree with the assessment and plan in the following students note. Sepsis Event Note - Focused Exam Date Exam was Performed: 06/16/19 Time Exam was Performed: 13:01
[2019-06-16 11:53] LABS: ANION GAP 12.7
== END 2019-06-16 13:17 | disposition home or self-care (01) ==
LOC: DL.ED 10:23
DX: J90 Pleural effusion, not elsewhere classified (principal); I48.91 Unspecified atrial fibrillation; I25.10 Atherosclerotic heart disease of native coronary artery without angina pectoris; I10 Essential (primary) hypertension; M19.90 Unspecified osteoarthritis, unspecified site; E66.9 Obesity, unspecified; Z68.34 Body mass index [BMI] 34.0-34.9, adult; F32.9 Major depressive disorder, single episode, unspecified; Z79.82 Long term (current) use of aspirin; Z79.899 Other long term (current) drug therapy
CPT/HCPCS: 36415; 71046; 74019; 80053; 81001; 83880; 85025; 93005; 99283; 99285-25

== ENCOUNTER 2019-07-06 21:28 | Emergency (ER) | payer MEDICARE, OTHER ==
--- NOTE | 2019-07-06 22:13 | EDM.PDOC ---
ED HPI GENERAL MEDICAL PROBLEM - General Chief Complaint: Respiratory Problem Stated Complaint: LEFT SIDE OF CHEST - procedure Time Seen by Provider: 07/06/19 22:00 Source of Information: Reports: Patient History Limitations: Reports: No Limitations - History of Present Illness INITIAL COMMENTS - FREE TEXT/NARRATIVE: This 83 yo male patient reports to the ED with left sided chest wall pain. The patient was seen in [facility] in [place] today and had a left pleural effusion drained (1000 mL). The patient reports he has had increased pain in the left chest wall since the procedure. The patient took a Percocet at 1830 this evening , but has not had any symptomatic relief. The patient has had his left pleural effusion drained 3 times now, but has not had this amount of pain after the past 2 procedures. The patient also reports intermittent diffuse abdominal pain. The patient reports he has never had his abdominal pain looked at. The patient reports his abdominal pain has subsided by the time of the visit. The patient reports he has chronic shortness of breath. Onset: Today Duration: Constant Location: Reports: Chest (left chest wall pain) Quality: Reports: Ache, Sharp Severity: Moderate Improves with: Reports: None Worsens with: Reports: None Context: Reports: Other Associated Symptoms: Reports: Chest Pain (left chest wall pain) Treatments APPRENTICE COSMETOLOGIST: Reports: Other Medication(s) (Percocet), Other (see below) Other Treatments APPRENTICE COSMETOLOGIST: percocet Left Chest Pain Score (Numeric/FACES): 9 - Related Data Allergies Allergy/AdvReac Type Severity Reaction Status Date / Time No Known Allergies Allergy Verified 07/06/19 21:54 Home Meds: Home Meds Tamsulosin [Flomax] 1 tab PO DAILY 04/24/17 [History] Escitalopram [Lexapro] 20 mg PO DAILY 10/30/17 [History] carvediloL [Carvedilol] 3.125 mg PO BID 10/30/17 [History] Acetaminophen/Diphenhydramine [Tylenol Pm Ex-Strength Caplet] 1 tab PO BEDTIME 03/31/19 [History] Nitroglycerin 0.4 mg PO ASDIRECTED PRN 03/31/19 [History] Omeprazole 20 mg PO DAILY 03/31/19 [History] Aspirin 81 mg PO DAILY 06/16/19 [History] Levothyroxine [Synthroid] 50 mcg PO DAILY 06/16/19 [History] Potassium Chloride 20 meq PO DAILY 06/16/19 [History] Bumetanide 2 mg PO DAILY 07/06/19 [History] Finasteride [Proscar] 5 mg PO DAILY 07/06/19 [History] Potassium Chloride 20 mg PO DAILY 07/06/19 [History] Past Medical History HEENT History: Reports: Head, Other (See Below) Other HEENT History: wears hearing aides Cardiovascular History: Reports: Afib, CAD, Hypertension Respiratory History: Reports: None Other Respiratory History: recent URI Gastrointestinal History: Reports: None Genitourinary History: Reports: BPH, Prostate Disorder Musculoskeletal History: Reports: Osteoarthritis, Other (See Below) Other Musculoskeletal History: neck pain. Neurological History: Reports: None Psychiatric History: Reports: Depression Endocrine/Metabolic History: Reports: Obesity/BMI 30+ Hematologic History: Reports: None Immunologic History: Reports: None Oncologic (Cancer) History: Reports: None Dermatologic History: Reports: None - Infectious Disease History Infectious Disease History: Reports: None Other Infectious Disease History: unsure cant remember - Past Surgical History HEENT Surgical History: Reports: Cataract Surgery, Other (See Below) Cardiovascular Surgical History: Reports: Pacer Other Cardiovascular Surgeries/Procedures: reports pacer removed, defibrilator insirted Social & Family History - Family History Family Medical History: Noncontributory - Caffeine Use Caffeine Use: Reports: Soda Other Caffeine Use: 2-3 cans per day - Living Situation & Occupation Living situation: Reports: , Alone Occupation: Retired ED ROS GENERAL - Review of Systems Review Of Systems: Comprehensive ROS is negative, except as noted in HPI. ED EXAM, GENERAL - Physical Exam Exam: See Below Exam Limited By: No Limitations General Appearance: Alert, WD/WN, Moderate Distress Eye Exam: Bilateral Eye: EOMI, Normal Inspection, PERRL Ears: Normal External Exam, Other (bilateral hearing aids) Nose: Normal Inspection, Normal Mucosa, No Blood Throat/Mouth: Normal Inspection, Normal Lips, Normal Teeth, Normal Gums, Normal Oropharynx, Normal Voice, No Airway Compromise Head: Atraumatic, Normocephalic Neck: Normal Inspection, Supple, Non-Tender, Full Range of Motion Respiratory/Chest: No Respiratory Distress, Decreased Breath Sounds (left lower lobe), Other (The patient reports tenderness to the left lateral chest wall ) Cardiovascular: Normal Peripheral Pulses, Regular Rate, Rhythm, No Edema, No Gallop, No JVD, No Murmur, No Rub GI/Abdominal: Normal Bowel Sounds, Soft, Non-Tender, No Organomegaly, No Distention, No Abnormal Bruit, No Mass (Male) Exam: Deferred Rectal (Males) Exam: Deferred Back Exam: Normal Inspection, Full Range of Motion, NT Extremities: Normal Inspection, Normal Range of Motion, Non-Tender, Normal Capillary Refill, No Pedal Edema Neurological: Alert, Oriented, CN II-XII Intact, Normal Cognition Psychiatric: Normal Affect, Normal Mood Skin Exam: Warm, Dry, Intact, Normal Color, No Rash Lymphatic: No Adenopathy Course - Vital Signs Last Recorded V/S: Last Vital Signs Temp 36.6 C 07/06/19 22:32 Pulse 68 07/07/19 00:10 Resp 15 07/07/19 00:10 BP 102/67 07/07/19 00:10 Pulse Ox 93 L 07/07/19 00:10 - Orders/Labs/Meds Orders: Active Orders 24 hr Category Date Time Status EKG Documentation Completion [RC] URGENT Care 07/06/19 21:55 Active Chest 1V Frontal [CR] Urgent Exams 07/06/19 21:55 Taken Labs: Laboratory Tests 07/06/19 07/06/19 07/06/19 Range/Units 22:28 22:28 22:28 WBC 7.3 (5.0-10.0) 10^3/uL RBC 3.61 L (4.6-6.2) 10^6/uL Hgb 11.3 L (14.0-18.0) g/dL Hct 35.7 L (40.0-54.0) % MCV 98.9 (80-100) fL MCH 31.3 (27.0-34.0) pg MCHC 31.7 L (33.0-35.0) g/dL Plt Count 190 (150-450) 10^3/uL Neut % (Auto) 78.9 H (42.2-75.2) % Lymph % (Auto) 8.8 L (20.5-50.1) % [place] % (Auto) 10.4 H (2-8) % Eos % (Auto) 1.5 (1.0-3.0) % Baso % (Auto) 0.4 (0.0-1.0) % Sodium 139 (136-145) mmol/L Potassium 4.2 (3.5-5.1) mmol/L Chloride 100 (98-107) mmol/L Carbon Dioxide 32 (21-32) mmol/L Anion Gap 11.2 (7-13) mEq/L BUN 32 H (7-18) mg/dL Creatinine 1.67 H (0.70-1.30) mg/dL Est Cr Clr Drug Dosing 39.21 mL/min Estimated GFR (MDRD) 40 BUN/Creatinine Ratio 19.2 (No establ ref range) Glucose 117 H (74-99) mg/dL Calcium 7.9 L (8.5-10.1) mg/dL Total Bilirubin 1.3 H (0.2-1.0) mg/dL AST 16 (15-37) U/L ALT 14 L (16-63) U/L Alkaline Phosphatase 172 H (46-116) U/L Troponin I < 0.017 (0.000-0.056) ng/mL Total Protein 7.2 (6.4-8.2) g/dL Albumin 3.6 (3.4-5.0) g/dL Globulin 3.6 Albumin/Globulin Ratio 1.0 Amylase 40 (25-115) U/L Lipase 74 (73-393) U/L Urine Color (YELLOW) Urine Appearance (CLEAR) Urine pH (5.0-9.0) Ur Specific [place] (1.005-1.030) Urine Protein (NEGATIVE) Urine Glucose (UA) (NEGATIVE) Urine Ketones (NEGATIVE) Urine Occult Blood (NEGATIVE) Urine Nitrite (NEGATIVE) Urine Bilirubin (NEGATIVE) Urine Urobilinogen (0.2-1.0) mg/dL Ur Leukocyte Esterase (NEGATIVE) U Hyaline Cast (Auto) Urine RBC /HPF Urine WBC (0-5/HPF) /HPF Ur Epithelial Cells (NOT SEEN) /HPF Amorphous Sediment (NOT SEEN) /HPF Urine Bacteria (0-FEW/HPF) /HPF Fine Granular Casts (NOT SEEN) /LPF Urine Mucus (NOT SEEN) /LPF /16/ Range/Units 23:24 WBC (5.0-10.0) 10^3/uL RBC (4.6-6.2) 10^6/uL Hgb (14.0-18.0) g/dL Hct (40.0-54.0) % MCV (80-100) fL MCH (27.0-34.0) pg MCHC (33.0-35.0) g/dL Plt Count (150-450) 10^3/uL Neut % (Auto) (42.2-75.2) % Lymph % (Auto) (20.5-50.1) % [place] % (Auto) (2-8) % Eos % (Auto) (1.0-3.0) % Baso % (Auto) (0.0-1.0) % Sodium (136-145) mmol/L Potassium (3.5-5.1) mmol/L Chloride (98-107) mmol/L Carbon Dioxide (21-32) mmol/L Anion Gap (7-13) mEq/L BUN (7-18) mg/dL Creatinine (0.70-1.30) mg/dL Est Cr Clr Drug Dosing mL/min Estimated GFR (MDRD) BUN/Creatinine Ratio (No establ ref range) Glucose (74-99) mg/dL Calcium (8.5-10.1) mg/dL Total Bilirubin (0.2-1.0) mg/dL AST (15-37) U/L ALT (16-63) U/L Alkaline Phosphatase (46-116) U/L Troponin I (0.000-0.056) ng/mL Total Protein (6.4-8.2) g/dL Albumin (3.4-5.0) g/dL Globulin Albumin/Globulin Ratio Amylase (25-115) U/L Lipase (73-393) U/L Urine Color Dark yellow (YELLOW) Urine Appearance Clear (CLEAR) Urine pH 5.0 (5.0-9.0) Ur Specific [place] >= 1.030 (1.005-1.030) Urine Protein 30 H (NEGATIVE) Urine Glucose (UA) Negative (NEGATIVE) Urine Ketones Trace H (NEGATIVE) Urine Occult Blood Negative (NEGATIVE) Urine Nitrite Negative (NEGATIVE) Urine Bilirubin Small H (NEGATIVE) Urine Urobilinogen 1.0 (0.2-1.0) mg/dL Ur Leukocyte Esterase Negative (NEGATIVE) U Hyaline Cast (Auto) Moderate Urine RBC 0-5 /HPF Urine WBC 0-5 (0-5/HPF) /HPF Ur Epithelial Cells Rare (NOT SEEN) /HPF Amorphous Sediment Occasional (NOT SEEN) /HPF Urine Bacteria Rare (0-FEW/HPF) /HPF Fine Granular Casts Rare H (NOT SEEN) /LPF Urine Mucus Few H (NOT SEEN) /LPF Meds: Medications Discontinued Medications Generic Name Dose Route Start Last Admin Trade Name E[place] PRN Reason Stop Dose Admin Morphine Sulfate 2 mg 07/06/19 22:46 07/06/19 22:59 Morphine IVPUSH 07/06/19 22:47 2 mg ONETIME ONE Administration Morphine Sulfate 2 mg 07/06/19 23:35 07/06/19 23:48 Morphine IVPUSH 07/06/19 23:36 2 mg ONETIME ONE Administration Departure - Departure Time of Disposition: 00:19 Disposition: Home, Self-Care 01 Condition: Fair Clinical Impression: Left-sided chest wall pain - Discharge Information *PRESCRIPTION DRUG MONITORING PROGRAM REVIEWED*: Yes *COPY OF PRESCRIPTION DRUG MONITORING REPORT IN PATIENT DANILO: Yes Instructions: Chest Wall Pain, [id number] Forms: ED Department Discharge Care Plan Goals: The patient and family were advised of the examination, lab, x-ray and EKG results during the visit. The patient was given two IV doses of Morphine while in the ED. The patient was encouraged to continue to take his medications as prescribed. If the patient has any additional symptoms or concerns, the patient should either return to the emergency department or visit his primary care facility. Sepsis Event Note - Evaluation Sepsis Screening Result: No Definite Risk - Focused Exam Vital Signs: Vital Signs Temp Pulse Resp BP Pulse Ox 07/07/19 00:10 68 15 102/67 93 L 07/06/19 22:32 36.6 C 69 22 H 115/73 93 L 07/06/19 21:45 36.5 C 74 23 H 112/74 87 L Date Exam was Performed: 07/07/19 Time Exam was Performed: 00:19 - My Orders Last 24 Hours: My Active Orders 07/06/19 21:55 EKG Documentation Completion [RC] URGENT Chest 1V Frontal [CR] Urgent - Assessment/Plan Last 24 Hours: My Active Orders 07/06/19 21:55 EKG Documentation Completion [RC] URGENT Chest 1V Frontal [CR] Urgent
[2019-07-06] MEDS ORDERED: Morphine 2 MG/ML Syringe IVPUSH ONE ×2 (22:46→23:35)
[2019-07-06 23:00] LABS: ANION GAP 11.2 mEq/L (7-13); CHLORIDE,CL 100 mmol/L (98-107); SODIUM,NA 139 mmol/L (136-145)
== END 2019-07-07 00:33 | disposition home or self-care (01) ==
LOC: DL.ED 21:28
DX: R07.89 Other chest pain (principal); I10 Essential (primary) hypertension; I25.10 Atherosclerotic heart disease of native coronary artery without angina pectoris; I48.91 Unspecified atrial fibrillation; F32.9 Major depressive disorder, single episode, unspecified; E66.9 Obesity, unspecified; Z79.82 Long term (current) use of aspirin; Z79.899 Other long term (current) drug therapy
CPT/HCPCS: 36415; 71045; 80053; 81001; 82150; 83690; 84484; 85025; 93005; 96374; 96376; 99283; 99285-25; J2270

== ENCOUNTER 2019-09-30 21:30 | Emergency (ER) | payer MEDICARE, OTHER ==
--- NOTE | 2019-09-30 22:35 | EDM.PDOC ---
ED HPI GENERAL MEDICAL PROBLEM - General Chief Complaint: IV Access Related Stated Complaint: I.V. NEEDS TO BE LOOKED AT Time Seen by Provider: 09/30/19 22:00 Source of Information: Reports: Patient, RN History Limitations: Reports: No Limitations - History of Present Illness INITIAL COMMENTS - FREE TEXT/NARRATIVE: on home antibiotic and tape came loose and "tubing all over". - Related Data Allergies Allergy/AdvReac Type Severity Reaction Status Date / Time No Known Allergies Allergy Verified 07/06/19 21:54 Home Meds: Home Meds Tamsulosin [Flomax] 1 tab PO DAILY 04/24/17 [History] Escitalopram [Lexapro] 20 mg PO DAILY 10/30/17 [History] carvediloL [Carvedilol] 3.125 mg PO BID 10/30/17 [History] Nitroglycerin 0.4 mg PO ASDIRECTED PRN 03/31/19 [History] Omeprazole 20 mg PO BID 03/31/19 [History] Aspirin 81 mg PO DAILY 06/16/19 [History] Levothyroxine [Synthroid] 50 mcg PO DAILY 06/16/19 [History] Potassium Chloride 20 meq PO BID 06/16/19 [History] Bumetanide 2 mg PO BID 07/06/19 [History] Finasteride [Proscar] 5 mg PO DAILY 07/06/19 [History] Acetaminophen [Tylenol] 650 mg PO Q6H PRN 09/29/19 [History] Ferrous Sulfate 325 mg PO DAILY 09/29/19 [History] Past Medical History HEENT History: Reports: Head, Other (See Below) Other HEENT History: wears hearing aides Cardiovascular History: Reports: Afib, CAD, Hypertension Other Cardiovascular History: Aicd. Respiratory History: Reports: None Other Respiratory History: recent URI Gastrointestinal History: Reports: None Genitourinary History: Reports: BPH, Prostate Disorder Musculoskeletal History: Reports: Osteoarthritis, Other (See Below) Other Musculoskeletal History: neck pain. Neurological History: Reports: None Psychiatric History: Reports: Depression Endocrine/Metabolic History: Reports: Obesity/BMI 30+ Hematologic History: Reports: None Immunologic History: Reports: None Oncologic (Cancer) History: Reports: None Dermatologic History: Reports: None - Infectious Disease History Infectious Disease History: Reports: Mumps Other Infectious Disease History: unsure cant remember - Past Surgical History HEENT Surgical History: Reports: Cataract Surgery, Other (See Below) Other HEENT Surgeries/Procedures: bilateral Cardiovascular Surgical History: Reports: Pacer Other Cardiovascular Surgeries/Procedures: reports pacer removed, defibrilator inserted Social & Family History - Family History Family Medical History: Noncontributory - Caffeine Use Caffeine Use: Reports: Coffee Other Caffeine Use: 2-3 cans per day - Living Situation & Occupation Living situation: Reports: , Alone Occupation: Retired ED ROS GENERAL - Review of Systems Review Of Systems: Comprehensive ROS is negative, except as noted in HPI. ED EXAM, GENERAL - Physical Exam Exam: See Below Exam Limited By: No Limitations General Appearance: Alert, No Apparent Distress Eye Exam: Bilateral Eye: EOMI Ears: Normal External Exam, Hearing Loss Throat/Mouth: Normal Voice Head: Atraumatic, Normocephalic Neck: Normal Inspection Cardiovascular: Normal Peripheral Pulses, Regular Rate, Rhythm Extremities: Other (PICC line right forearm) Neurological: Alert, Oriented Psychiatric: Normal Affect Skin Exam: Warm, Dry, Intact Course - Vital Signs Last Recorded V/S: Last Vital Signs Temp 98.5 F 09/30/19 21:46 Pulse 79 09/30/19 21:46 Resp 19 09/30/19 21:46 BP 100/64 09/30/19 21:46 Pulse Ox 98 09/30/19 21:46 Departure - Departure Time of Disposition: 22:33 Disposition: Home, Self-Care 01 Condition: Good Clinical Impression: Receiving intravenous antibiotic treatment at home - Discharge Information *PRESCRIPTION DRUG MONITORING PROGRAM REVIEWED*: No *COPY OF PRESCRIPTION DRUG MONITORING REPORT IN PATIENT DANILO: No Instructions: PICC Home Care Guide Referrals: PCP,None [Primary Care Provider] - Forms: ED Department Discharge Additional Instructions: follow up in clinic as scheduled in am Sepsis Event Note (ED) - Evaluation Sepsis Screening Result: No Definite Risk - Focused Exam Vital Signs: Vital Signs Temp Pulse Resp BP Pulse Ox 09/30/19 21:46 98.5 F 79 19 100/64 98
== END 2019-09-30 22:41 | disposition home or self-care (01) ==
LOC: DL.ED 21:30
DX: T82.594A Other mechanical complication of infusion catheter, initial encounter (principal); I48.91 Unspecified atrial fibrillation; I25.10 Atherosclerotic heart disease of native coronary artery without angina pectoris; I10 Essential (primary) hypertension; M19.90 Unspecified osteoarthritis, unspecified site; F32.9 Major depressive disorder, single episode, unspecified; E66.9 Obesity, unspecified; Z68.30 Body mass index [BMI] 30.0-30.9, adult; Z79.82 Long term (current) use of aspirin; Z79.899 Other long term (current) drug therapy
CPT/HCPCS: 99282; 99283

== ENCOUNTER 2020-01-19 15:12 | Emergency (ER) | payer MEDICARE, OTHER ==
[2020-01-19] MEDS ORDERED: Lidocaine 1% 30 ML SDV INJECT ONE (16:08)
--- NOTE | 2020-01-19 16:34 | EDM.PDOC ---
ED HPI GENERAL MEDICAL PROBLEM - General Chief Complaint: General Stated Complaint: STOMACH BAG IS LEAKING Time Seen by Provider: 01/19/20 15:30 Source of Information: Reports: Patient History Limitations: Reports: No Limitations - History of Present Illness INITIAL COMMENTS - FREE TEXT/NARRATIVE: Patient comes emergency department today with complaints of leaking from a post procedure site on his right lower abdomen. This patient just got back from [place] where he has a weekly tap of his abdomen for peritoneal drainage due to cirrhosis. He feels that they did not take off as much fluid as he has in the past and he has had quite a bit of leakage from the site where the fluid was drained in his right lower abdomen. He has no fever no chills. No abdominal pain. No nausea or vomiting. It is drained quite extensively every time he moves. - Related Data Allergies Allergy/AdvReac Type Severity Reaction Status Date / Time No Known Allergies Allergy Verified 01/19/20 15:18 Home Meds: Home Meds Tamsulosin [Flomax] 1 tab PO DAILY 04/24/17 [History] Escitalopram [Lexapro] 20 mg PO DAILY 10/30/17 [History] carvediloL [Carvedilol] 3.125 mg PO BID 10/30/17 [History] Nitroglycerin 0.4 mg PO ASDIRECTED PRN 03/31/19 [History] Omeprazole 20 mg PO BID 03/31/19 [History] Aspirin 81 mg PO DAILY 06/16/19 [History] Levothyroxine [Synthroid] 50 mcg PO DAILY 06/16/19 [History] Potassium Chloride 20 meq PO BID 06/16/19 [History] Bumetanide 2 mg PO BID 07/06/19 [History] Finasteride [Proscar] 5 mg PO DAILY 07/06/19 [History] Acetaminophen [Tylenol] 650 mg PO Q6H PRN 09/29/19 [History] Ferrous Sulfate 325 mg PO DAILY 09/29/19 [History] Past Medical History HEENT History: Reports: Head, Other (See Below) Other HEENT History: wears hearing aides Cardiovascular History: Reports: Afib, CAD, Hypertension Other Cardiovascular History: Aicd. Respiratory History: Reports: None Other Respiratory History: recent URI Gastrointestinal History: Reports: None Genitourinary History: Reports: BPH, Prostate Disorder Musculoskeletal History: Reports: Osteoarthritis, Other (See Below) Other Musculoskeletal History: neck pain. Neurological History: Reports: None Psychiatric History: Reports: Depression Endocrine/Metabolic History: Reports: Obesity/BMI 30+ Hematologic History: Reports: None Immunologic History: Reports: None Oncologic (Cancer) History: Reports: None Dermatologic History: Reports: None - Infectious Disease History Infectious Disease History: Reports: Mumps Other Infectious Disease History: unsure cant remember - Past Surgical History HEENT Surgical History: Reports: Cataract Surgery, Other (See Below) Other HEENT Surgeries/Procedures: bilateral Cardiovascular Surgical History: Reports: Pacer Other Cardiovascular Surgeries/Procedures: reports pacer removed, defibrilator inserted Social & Family History - Family History Family Medical History: Noncontributory - Tobacco Use Smoking Status *Q: Never Smoker - Caffeine Use Caffeine Use: Reports: Coffee Other Caffeine Use: 2-3 cans per day - Recreational Drug Use Recreational Drug Use: No - Living Situation & Occupation Living situation: Reports: , Alone Occupation: Retired ED ROS GENERAL - Review of Systems Review Of Systems: Comprehensive ROS is negative, except as noted in HPI. ED EXAM, GENERAL - Physical Exam Exam: See Below Exam Limited By: No Limitations General Appearance: Alert, WD/WN, No Apparent Distress Respiratory/Chest: No Respiratory Distress, Lungs Clear, Normal Breath Sounds, Chest Non-Tender Cardiovascular: Normal Peripheral Pulses, Regular Rate, Rhythm GI/Abdominal: Normal Bowel Sounds, Soft, Non-Tender, Distended, Other (No fluid wave. No peritoneal signs. There is a small assuming post procedure puncture wound in the right lower abdomen that is surrounded by multiple other ones as well. There is clear fluid draining pretty regularly from the site in the right lower abdomen.). No: Guarding, Rigid, Rebound, Tender (Male) Exam: Deferred Rectal (Males) Exam: Deferred Back Exam: Normal Inspection Extremities: Normal Inspection, Normal Range of Motion, Normal Capillary Refill Neurological: Alert, Oriented, Normal Cognition, No Motor/Sensory Deficits Psychiatric: Normal Affect, Normal Mood Skin Exam: Warm, Dry, Intact, Normal Color, No Rash Course - Vital Signs Last Recorded V/S: Last Vital Signs Temp 97.2 F 01/19/20 15:32 Pulse 81 01/19/20 15:32 Resp 16 01/19/20 15:32 BP 107/74 09/29/20 15:32 Pulse Ox 99 01/19/20 15:32 - Orders/Labs/Meds Meds: Medications Discontinued Medications Generic Name Dose Route Start Last Admin Trade Name Eneida PRN Reason Stop Dose Admin Lidocaine HCl 30 ml 01/19/20 16:08 01/19/20 16:38 Xylocaine-Mpf 1% INJECT 01/19/20 16:09 30 ml ONETIME ONE Administration - Re-Assessments/Exams Free Text/Narrative Re-Assessment/Exam: 01/19/20 22:54 I did call and speak with the interventional radiology group in [place] about the concerns of the continued moderate amount of leakage coming from the para centesis site. Their guidance at this time was either to allow it to continue to drain or put a pursestring suture around there which is most likely the best course of action. I discussed the plan with the patient he was comfortable with this plan. 1% lidocaine was injected around the site. 4-0 Ethilon suture was placed surrounding the area of leakage from the paracentesis site in a pursestring fashion. With complete resolution of the lack of the peritoneal fluid leakage. We did observe him in the emergency department for the next 20 minutes he had no more leakage. We also had him get up and ambulate around and he continued not to have any leakage from the paracentesis site. He can have the suture removed in the next 7 days he can just wait until he returns for his paracentesis. He is comfortable with this plan his questions are asked.. Watch for signs of infection. If anything new or worse he needs to recheck he is understanding this. Departure - Departure Time of Disposition: 16:33 Disposition: Home, Self-Care 01 Clinical Impression: Surgical complication Qualifiers: Surgical complication system/body Area: skin Surgical complication type: puncture, accidental Procedure type: non-dermatologic Qualified Code(s): L76.12 - Accidental puncture and laceration of skin and subcutaneous tissue during other procedure - Discharge Information Referrals: Ade Grajeda MD [Primary Care Provider] - Forms: ED Department Discharge Additional Instructions: Suture out in 7 days. Recheck if any concerns. Keep previous appointment. Sepsis Event Note (ED) - Evaluation Sepsis Screening Result: No Definite Risk - Focused Exam Vital Signs: Vital Signs Temp Pulse Resp BP Pulse Ox 01/19/20 15:32 97.2 F 81 16 107/74 99
== END 2020-01-19 16:39 | disposition home or self-care (01) ==
LOC: DL.ED 15:12
DX: L76.82 Other postprocedural complications of skin and subcutaneous tissue (principal); I10 Essential (primary) hypertension; I25.10 Atherosclerotic heart disease of native coronary artery without angina pectoris; I48.91 Unspecified atrial fibrillation; N40.0 Benign prostatic hyperplasia without lower urinary tract symptoms; M19.90 Unspecified osteoarthritis, unspecified site; F32.9 Major depressive disorder, single episode, unspecified; E66.9 Obesity, unspecified; Z79.899 Other long term (current) drug therapy; Z79.82 Long term (current) use of aspirin
CPT/HCPCS: 12001; 99283; J2001

== ENCOUNTER 2020-03-12 15:02 | Emergency (ER) | payer MEDICARE, OTHER ==
--- NOTE | 2020-03-12 15:51 | CR ---
PROCEDURE INFORMATION: Exam: XR Left Knee Exam date and time: 03/12/2020 3:37 PM Age: 84 years old Clinical indication: Other: Fall; Additional info: Fall on Saturday, swelling, bruising and drainage TECHNIQUE: Imaging protocol: XR Left knee. Views: 3 views. COMPARISON: No relevant prior studies available. FINDINGS: Bones/joints: Joint effusion. There is no evidence of acute fracture. Soft tissues: Anterior soft tissue swelling. Other findings: Status post total knee replacement without evidence of complications. IMPRESSION: 1. Status post total knee replacement without evidence of complications. 2. Anterior soft tissue swelling. 3. Joint effusion. 4. No evidence of acute fracture.
--- NOTE | 2020-03-12 16:01 | EDM.PDOC ---
<Danielle Sanchez - Last Filed: 03/12/20 16:28> ED HPI GENERAL MEDICAL PROBLEM - General Chief Complaint: Lower Extremity Injury/Pain Stated Complaint: DRAINING KNEE, SWELLING, PAIN Time Seen by Provider: 03/12/20 15:30 Source of Information: Reports: Patient, RN, RN Notes Reviewed History Limitations: Reports: No Limitations - History of Present Illness INITIAL COMMENTS - FREE TEXT/NARRATIVE: 84 year old male with known history of bilateral knee replacements several years ago. states he tripped in his home and injured his left knee and scraped his forehead on 03/08/20. reports left knee swelling, bruising, and pain. reports pain 10/29. states it takes him awhile to get up and able to move it, pain with ambulation. denies fever, chills. reports today that he noticed drainage from the abrasion site to left knee. denies pain at any other location. denies LOC with fall, denies subsequent headache, lightheadedness, or vision changes. rep orts recent paracentesis for 7 weeks in a row, but denies complaints today, states abdomen has not changed in size, nor has he had weight gain since last paracentesis. Onset Date: 03/08/20 Location: Reports: Lower Extremity, Left (knee) Left Knee Pain Score (Numeric/FACES): 3 - Related Data Allergies Allergy/AdvReac Type Severity Reaction Status Date / Time No Known Allergies Allergy Verified 01/19/20 15:18 Home Meds: Home Meds Tamsulosin [Flomax] 1 tab PO DAILY 04/24/17 [History] Escitalopram [Lexapro] 20 mg PO DAILY 10/30/17 [History] carvediloL [Carvedilol] 3.125 mg PO BID 10/30/17 [History] Nitroglycerin 0.4 mg PO ASDIRECTED PRN 03/31/19 [History] Omeprazole 20 mg PO BID 03/31/19 [History] Aspirin 81 mg PO DAILY 06/16/19 [History] Levothyroxine [Synthroid] 50 mcg PO DAILY 06/16/19 [History] Potassium Chloride 20 meq PO BID 06/16/19 [History] Bumetanide 2 mg PO BID 07/06/19 [History] Finasteride [Proscar] 5 mg PO DAILY 07/06/19 [History] Acetaminophen [Tylenol] 650 mg PO Q6H PRN 09/29/19 [History] Ferrous Sulfate 325 mg PO DAILY 09/29/19 [History] Past Medical History HEENT History: Reports: Head, Other (See Below) Other HEENT History: wears hearing aides Cardiovascular History: Reports: Afib, CAD, Hypertension Other Cardiovascular History: Aicd. Respiratory History: Reports: None Other Respiratory History: recent URI Gastrointestinal History: Reports: None Genitourinary History: Reports: BPH, Prostate Disorder Musculoskeletal History: Reports: Osteoarthritis, Other (See Below) Other Musculoskeletal History: neck pain. Neurological History: Reports: None Psychiatric History: Reports: Depression Endocrine/Metabolic History: Reports: Obesity/BMI 30+ Hematologic History: Reports: None Immunologic History: Reports: None Oncologic (Cancer) History: Reports: None Dermatologic History: Reports: None - Infectious Disease History Infectious Disease History: Reports: Mumps Other Infectious Disease History: unsure cant remember - Past Surgical History HEENT Surgical History: Reports: Cataract Surgery, Other (See Below) Other HEENT Surgeries/Procedures: bilateral Cardiovascular Surgical History: Reports: Pacer Other Cardiovascular Surgeries/Procedures: reports pacer removed, defibrilator inserted Respiratory Surgical History: Reports: None GI Surgical History: Reports: Colonoscopy Male Surgical History: Reports: None Musculoskeletal Surgical History: Reports: Joint Replacement, Knee Replacement, Shoulder Replacement, Shoulder Surgery Other Musculoskeletal Surgeries/Procedures:: bilat knee replacement. Right shoulder replaced Social & Family History - Family History Family Medical History: No Pertinent Family History - Tobacco Use Tobacco Use Status *Q: Never Tobacco User Second Hand Smoke Exposure: No - Caffeine Use Caffeine Use: Reports: Coffee Other Caffeine Use: 2-3 cans per day - Recreational Drug Use Recreational Drug Use: No - Living Situation & Occupation Living situation: Reports: , Alone Occupation: Retired Review of Systems - Review of Systems Review Of Systems: Comprehensive ROS is negative, except as noted in HPI. ED EXAM, GENERAL - Physical Exam Exam: See Below Exam Limited By: No Limitations General Appearance: Alert, WD/WN, No Apparent Distress Eye Exam: Bilateral Eye: EOMI, Normal Inspection, PERRL Ears: Normal External Exam, Hearing Grossly Normal Nose: Normal Inspection Throat/Mouth: Normal Inspection, No Airway Compromise Head: Normocephalic, Other (abrasion to right forehead) Neck: Normal Inspection, Supple, Non-Tender, Full Range of Motion Respiratory/Chest: No Respiratory Distress, Lungs Clear, Normal Breath Sounds Cardiovascular: Normal Peripheral Pulses, Regular Rate, Rhythm. No: No Edema (2+ bilateral pedal edema) GI/Abdominal: Normal Bowel Sounds, Non-Tender, Distended, Rigid (firm) (Male) Exam: Deferred Rectal (Males) Exam: Deferred Extremities: Pedal Edema, Joint Swelling (left knee), Limited Range of Motion (left knee), Other (left knee with various stages of bruising, moderate joint effusion noted, abrasion 2cm x 1.5 cm to left patella with moist yellow wound bed). No: Non-Tender Neurological: Alert, Oriented, Normal Cognition, Normal Gait (uses cane) Psychiatric: Normal Affect, Normal Mood Skin Exam: Warm, Dry, Intact, Other (see extremity assessment) Lymphatic: No Adenopathy Departure - Departure Time of Disposition: 16:28 Disposition: Home, Self-Care 01 Condition: Fair Clinical Impression: Contusion of knee Joint effusion of knee Qualifiers: Laterality: left Qualified Code(s): M25.462 - Effusion, left knee - Discharge Information *PRESCRIPTION DRUG MONITORING PROGRAM REVIEWED*: No *COPY OF PRESCRIPTION DRUG MONITORING REPORT IN PATIENT DANILO: No Instructions: Knee Effusion, [id number], Contusion, [id number] Forms: ED Department Discharge Additional Instructions: RX: Keflex 500 mg by mouth two times per day x 10 days. Monitor for signs of infection: increased redness, warmth, swelling, drainage or fever. Continue with compression wrap and elevation. Follow-up with primary care provider or return to ER if symptoms worsen. Sepsis Event Note (ED) - Evaluation Sepsis Screening Result: No Definite Risk <Radha Cruz - Last Filed: 03/12/20 18:08> Course - Vital Signs Last Recorded V/S: Last Vital Signs Temp 97.5 F 03/12/20 15:05 Pulse 81 03/12/20 15:05 Resp 18 03/12/20 15:05 BP 111/72 03/12/20 15:05 Pulse Ox 100 03/12/20 15:05 - Orders/Labs/Meds Orders: Active Orders 24 hr Category Date Time Status CULTURE WOUND [RM] Stat Lab 03/12/20 15:13 Received Meds: Medications Discontinued Medications Generic Name Dose Route Start Last Admin Trade Name Freq PRN Reason Stop Dose Admin Cephalexin 500 mg 03/12/20 16:13 03/12/20 16:19 Keflex PO 03/12/20 16:14 500 mg ONETIME ONE Administration Cephalexin Confirm 03/12/20 16:25 03/12/20 16:29 Keflex Administered 03/12/20 16:26 Not Given Dose 500 mg .ROUTE .[facility] - Radiology Interpretation Free Text/Narrative:: Left knee xray: PROCEDURE INFORMATION: Exam: XR Left Knee Exam date and time: 03/12/2020 3:37 PM Age: 84 years old Clinical indication: Other: Fall; Additional info: Fall on Saturday, swelling, bruising and drainage TECHNIQUE: Imaging protocol: XR Left knee. Views: 3 views. COMPARISON: No relevant prior studies available. FINDINGS: Bones/joints: Joint effusion. There is no evidence of acute fracture. Soft tissues: Anterior soft tissue swelling. Other findings: Status post total knee replacement without evidence of complications. IMPRESSION: 1. Status post total knee replacement without evidence of complications. 2. Anterior soft tissue swelling. 3. Joint effusion. 4. No evidence of acute fracture. Thank you for allowing us to participate in the care of your patient. Dictated and Authenticated by: Lucas Bella DO 03/12/2020 3:51 PM Central Time ([place] & [place]) See rad report - Re-Assessments/Exams Free Text/Narrative Re-Assessment/Exam: 03/12/20 18:08 I personally performed or re-performed the physical examination and medical decision making. I have verified all student documentation or findings, including history, physical exam and/or medical decision making. Sepsis Event Note (ED) - Focused Exam Vital Signs: Vital Signs Temp Pulse Resp BP Pulse Ox 03/12/20 15:05 97.5 F 81 18 111/72 100 - My Orders Last 24 Hours: My Active Orders 03/12/20 15:13 CULTURE WOUND [RM] Stat - Assessment/Plan Last 24 Hours: My Active Orders 03/12/20 15:13 CULTURE WOUND [RM] Stat
[2020-03-12] MEDS ORDERED: Cephalexin 500 MG Cap PO ONE (16:13)
[2020-03-12] MEDS ORDERED: Cephalexin 500 MG Cap ONE (16:25)
== END 2020-03-12 16:38 | disposition home or self-care (01) ==
LOC: DL.ED 15:02
DX: S80.02XA Contusion of left knee, initial encounter (principal); S00.81XA Abrasion of other part of head, initial encounter; M25.462 Effusion, left knee; I48.91 Unspecified atrial fibrillation; I25.10 Atherosclerotic heart disease of native coronary artery without angina pectoris; I10 Essential (primary) hypertension; M19.90 Unspecified osteoarthritis, unspecified site; F32.9 Major depressive disorder, single episode, unspecified; E66.9 Obesity, unspecified; N40.0 Benign prostatic hyperplasia without lower urinary tract symptoms; Z68.30 Body mass index [BMI] 30.0-30.9, adult; Z79.82 Long term (current) use of aspirin; W01.0XXA Fall on same level from slipping, tripping and stumbling without subsequent striking against object, initial encounter; Y92.009 Unspecified place in unspecified non-institutional (private) residence as the place of occurrence of the external cause
CPT/HCPCS: 73562; 87070; 87077; 87186; 99283; A9270

== ENCOUNTER 2020-03-14 12:44 | Emergency (ER) | payer MEDICARE, OTHER ==
[2020-03-14] MEDS ORDERED: Cephalexin 500 MG Cap PO ONE (12:45)
--- NOTE | 2020-03-14 14:17 | EDM.PDOC ---
ED HPI GENERAL MEDICAL PROBLEM - General Chief Complaint: Lower Extremity Injury/Pain Stated Complaint: PROBLEMS WITH INFECTED KNEE Time Seen by Provider: 03/14/20 14:00 Source of Information: Reports: Patient History Limitations: Reports: No Limitations - History of Present Illness INITIAL COMMENTS - FREE TEXT/NARRATIVE: This 84 yo male patient reports to the ED due to an injury to his left knee. The patient reports he tripped on Saturday and landed on his knee. The patient reports he continues to have pain to his knee and has noticed increased bruising and swelling to the area. The patient reports he has been taking the medications as prescribed, but his knee does not seem to be getting any better. Onset Date: 03/12/20 Duration: Constant Location: Reports: Lower Extremity, Left Quality: Reports: Ache, Dull Severity: Moderate Improves with: Reports: None Worsens with: Reports: None Context: Reports: Other Associated Symptoms: Reports: No Other Symptoms - Related Data Allergies Allergy/AdvReac Type Severity Reaction Status Date / Time No Known Allergies Allergy Verified 03/14/20 13:06 Home Meds: Home Meds Tamsulosin [Flomax] 1 tab PO DAILY 04/24/17 [History] Escitalopram [Lexapro] 20 mg PO DAILY 10/30/17 [History] carvediloL [Carvedilol] 3.125 mg PO BID 10/30/17 [History] Nitroglycerin 0.4 mg PO ASDIRECTED PRN 03/31/19 [History] Omeprazole 20 mg PO BID 03/31/19 [History] Aspirin 81 mg PO DAILY 06/16/19 [History] Levothyroxine [Synthroid] 50 mcg PO DAILY 06/16/19 [History] Potassium Chloride 20 meq PO BID 06/16/19 [History] Bumetanide 2 mg PO BID 07/06/19 [History] Finasteride [Proscar] 5 mg PO DAILY 07/06/19 [History] Acetaminophen [Tylenol] 650 mg PO Q6H PRN 09/29/19 [History] Ferrous Sulfate 325 mg PO DAILY 09/29/19 [History] Past Medical History HEENT History: Reports: Head, Other (See Below) Other HEENT History: wears hearing aides Cardiovascular History: Reports: Afib, CAD, Hypertension Other Cardiovascular History: Aicd. Respiratory History: Reports: Other (See Below) Other Respiratory History: recent URI Gastrointestinal History: Reports: None Genitourinary History: Reports: BPH, Prostate Disorder Musculoskeletal History: Reports: Osteoarthritis, Other (See Below) Other Musculoskeletal History: neck pain. Neurological History: Reports: None Psychiatric History: Reports: Depression Endocrine/Metabolic History: Reports: Obesity/BMI 30+ Hematologic History: Reports: None Immunologic History: Reports: None Oncologic (Cancer) History: Reports: None Dermatologic History: Reports: None - Infectious Disease History Infectious Disease History: Reports: Mumps Other Infectious Disease History: unsure cant remember - Past Surgical History HEENT Surgical History: Reports: Cataract Surgery, Other (See Below) Other HEENT Surgeries/Procedures: bilateral Cardiovascular Surgical History: Reports: Pacer Other Cardiovascular Surgeries/Procedures: reports pacer removed, defibrilator inserted Respiratory Surgical History: Reports: None GI Surgical History: Reports: Colonoscopy Male Surgical History: Reports: None Musculoskeletal Surgical History: Reports: Joint Replacement, Knee Replacement, Shoulder Replacement, Shoulder Surgery Other Musculoskeletal Surgeries/Procedures:: bilat knee replacement. Right shoulder replaced Social & Family History - Family History Family Medical History: No Pertinent Family History - Tobacco Use Tobacco Use Status *Q: Never Tobacco User - Caffeine Use Caffeine Use: Reports: Coffee Other Caffeine Use: 2-3 cans per day - Recreational Drug Use Recreational Drug Use: No - Living Situation & Occupation Living situation: Reports: , Alone Occupation: Retired Review of Systems - Review of Systems Review Of Systems: Comprehensive ROS is negative, except as noted in HPI. ED EXAM, GENERAL - Physical Exam Exam: See Below Exam Limited By: No Limitations General Appearance: Alert, WD/WN, Moderate Distress Eye Exam: Bilateral Eye: EOMI, Normal Inspection, PERRL Ears: Normal External Exam, Normal Canal, Hearing Grossly Normal, Normal TMs Nose: Normal Inspection, Normal Mucosa, No Blood Throat/Mouth: Normal Inspection, Normal Lips, Normal Teeth, Normal Gums, Normal Oropharynx, Normal Voice, No Airway Compromise Respiratory/Chest: No Respiratory Distress, Lungs Clear, Normal Breath Sounds, No Accessory Muscle Use, Chest Non-Tender Cardiovascular: Normal Peripheral Pulses, Regular Rate, Rhythm, No Edema, No Gallop, No JVD, No Murmur, No Rub GI/Abdominal: Normal Bowel Sounds, Soft, Non-Tender, No Organomegaly, No Distention, No Abnormal Bruit, No Mass (Male) Exam: Deferred Rectal (Males) Exam: Deferred Back Exam: Normal Inspection, Full Range of Motion, NT Extremities: Leg Pain (left knee pain/swelling) Neurological: Alert, Oriented, CN II-XII Intact, Normal Cognition, Normal Gait, Normal Reflexes, No Motor/Sensory Deficits Psychiatric: Normal Affect, Normal Mood Skin Exam: Warm, Dry, Intact, Normal Color, No Rash Lymphatic: No Adenopathy Course - Vital Signs Last Recorded V/S: Last Vital Signs Temp 36.1 C 03/14/20 13:03 Pulse 82 03/14/20 13:03 Resp 18 03/14/20 13:03 BP 110/70 03/14/20 13:03 Pulse Ox 100 03/14/20 13:03 - Orders/Labs/Meds Orders: Active Orders 24 hr Category Date Time Status Bacitracin [Bacitracin Oint 1 GM] Med 03/14/20 14:58 Once 1 dose TOP ONETIME ONE Departure - Departure Time of Disposition: 14:59 Disposition: Home, Self-Care 01 Condition: Fair Clinical Impression: Contusion of knee - Discharge Information *PRESCRIPTION DRUG MONITORING PROGRAM REVIEWED*: Not Applicable *COPY OF PRESCRIPTION DRUG MONITORING REPORT IN PATIENT DANILO: Not Applicable Instructions: Contusion, [id number] Forms: ED Department Discharge Care Plan Goals: The patient was advised of the examination and repeat x-ray results during the visit. The patient's knee was dressed with antibiotic ointment and covered with bandage along with an JESUS ALBERTO wrap. The patient was encouraged to use antibiotic ointment on the knee and keep the area covered. If the patient has any additional symptoms or concerns, the patient should either return to the emergency department or visit his primary care facility. Sepsis Event Note (ED) - Evaluation Sepsis Screening Result: No Definite Risk - Focused Exam Vital Signs: Vital Signs Temp Pulse Resp BP Pulse Ox 03/14/20 13:03 36.1 C 82 18 110/70 100 - My Orders Last 24 Hours: My Active Orders 03/14/20 14:58 Bacitracin [Bacitracin Oint 1 GM] 1 dose TOP ONETIME ONE - Assessment/Plan Last 24 Hours: My Active Orders 03/14/20 14:58 Bacitracin [Bacitracin Oint 1 GM] 1 dose TOP ONETIME ONE
--- NOTE | 2020-03-14 14:55 | CR ---
EXAMINATION: Knee 3V Lt SEX: Male AGE: 84 years CLINICAL HISTORY: 84-year-old male complaining of continued left knee pain. No comparison films. INTERPRETATION: 1. Total orthopedic replacement left knee. 2. Distal femoral and proximal tibial components of the total knee prosthesis satisfactorily "seated" in the bony host and anatomically aligned. 3. Reactive sclerosis. 4. No other foreign bodies or inflammatory periostitis. 5. No pathologic skeletal lesion. 6. Apparent infrapatellar/pretibial soft tissue swelling but no sign of acute fracture or dislocation left knee. CONCLUSION: Total left knee replacement. No "loosening", fracture or dislocation.
[2020-03-14] MEDS ORDERED: Bacitracin Oint 1 GM U/D Packet TOP ONE (14:58)
== END 2020-03-14 15:13 | disposition home or self-care (01) ==
LOC: DL.ED 12:44
DX: S80.02XA Contusion of left knee, initial encounter (principal); I48.91 Unspecified atrial fibrillation; I25.10 Atherosclerotic heart disease of native coronary artery without angina pectoris; I10 Essential (primary) hypertension; N40.0 Benign prostatic hyperplasia without lower urinary tract symptoms; M19.90 Unspecified osteoarthritis, unspecified site; E66.9 Obesity, unspecified; Z68.31 Body mass index [BMI] 31.0-31.9, adult; Z79.82 Long term (current) use of aspirin; W01.0XXA Fall on same level from slipping, tripping and stumbling without subsequent striking against object, initial encounter
CPT/HCPCS: 73562-LT; 99283; A9270-GY

== ENCOUNTER 2020-10-05 13:56 | Emergency (ER) | payer MEDICARE, OTHER ==
--- NOTE | 2020-10-05 14:31 | EDM.PDOC ---
ED HPI GENERAL MEDICAL PROBLEM - General Chief Complaint: Trauma Stated Complaint: INJURY TO BACK OF THE HEAD Time Seen by Provider: 10/05/20 14:15 Source of Information: Reports: Patient History Limitations: Reports: No Limitations - History of Present Illness INITIAL COMMENTS - FREE TEXT/NARRATIVE: This 85 yo male patient was brought to the ED by family due to a ground level fall. The patient reports he was outside watering his reich when his legs got weak and he fell down. The patient denies any loss of consciousness before, during or after the fall. The patient reports pain in his left hip. The patient also has some blood to the posterior scalp. The patient's family reports the patient had a fall about 1 week ago due to similar circumstances. Today, the patient fall outside on the [place] driveway and was found by family. The family member reports she had been inside for about 30 minutes prior to returning outside to see the patient on the ground. Onset: Today Duration: Minutes: Location: Reports: Head, Pelvis, Lower Extremity, Left Quality: Reports: Ache Severity: Moderate Improves with: Reports: Rest Worsens with: Reports: Movement Context: Reports: Other Associated Symptoms: Reports: No Other Symptoms Left Hip Pain Score (Numeric/FACES): 8 - Related Data Allergies Allergy/AdvReac Type Severity Reaction Status Date / Time levofloxacin [From Levaquin] Allergy Cannot Verified 10/05/20 14:26 Remember Home Meds: Home Meds Tamsulosin [Flomax] 1 tab PO DAILY 04/24/17 [History] Escitalopram [Lexapro] 20 mg PO DAILY 10/30/17 [History] carvediloL [Carvedilol] 3.125 mg PO BID 10/30/17 [History] Nitroglycerin 0.4 mg PO ASDIRECTED PRN 03/31/19 [History] Omeprazole 20 mg PO BID 03/31/19 [History] Aspirin 81 mg PO DAILY 06/16/19 [History] Levothyroxine [Synthroid] 50 mcg PO DAILY 06/16/19 [History] Potassium Chloride 20 meq PO BID 06/16/19 [History] Bumetanide 2 mg PO BID 07/06/19 [History] Finasteride [Proscar] 5 mg PO DAILY 07/06/19 [History] Acetaminophen [Tylenol] 650 mg PO Q6H PRN 09/29/19 [History] Ferrous Sulfate 325 mg PO DAILY 09/29/19 [History] Past Medical History HEENT History: Reports: Head, Other (See Below) Other HEENT History: wears hearing aides Cardiovascular History: Reports: Afib, CAD, Hypertension Other Cardiovascular History: Aicd. Respiratory History: Reports: Other (See Below) Other Respiratory History: recent URI Gastrointestinal History: Reports: None Genitourinary History: Reports: BPH, Prostate Disorder Musculoskeletal History: Reports: Osteoarthritis, Other (See Below) Other Musculoskeletal History: neck pain. Neurological History: Reports: None Psychiatric History: Reports: Depression Endocrine/Metabolic History: Reports: Obesity/BMI 30+ Hematologic History: Reports: None Immunologic History: Reports: None Oncologic (Cancer) History: Reports: None Dermatologic History: Reports: None - Infectious Disease History Infectious Disease History: Reports: Mumps Other Infectious Disease History: unsure cant remember - Past Surgical History HEENT Surgical History: Reports: Cataract Surgery, Other (See Below) Other HEENT Surgeries/Procedures: bilateral Cardiovascular Surgical History: Reports: Pacer Other Cardiovascular Surgeries/Procedures: reports pacer removed, defibrilator inserted Respiratory Surgical History: Reports: None GI Surgical History: Reports: Colonoscopy Male Surgical History: Reports: None Musculoskeletal Surgical History: Reports: Joint Replacement, Knee Replacement, Shoulder Replacement, Shoulder Surgery Other Musculoskeletal Surgeries/Procedures:: bilat knee replacement. Right shoulder replaced Social & Family History - Family History Family Medical History: No Pertinent Family History - Caffeine Use Caffeine Use: Reports: Coffee Other Caffeine Use: 2-3 cans per day - Living Situation & Occupation Living situation: Reports: , Alone Occupation: Retired Review of Systems - Review of Systems Review Of Systems: Comprehensive ROS is negative, except as noted in HPI. ED EXAM, GENERAL - Physical Exam Exam: See Below Exam Limited By: No Limitations General Appearance: Alert, WD/WN, Moderate Distress Eye Exam: Bilateral Eye: EOMI, Normal Inspection, PERRL Ears: Normal External Exam, Normal Canal, Hearing Grossly Normal, Normal TMs Nose: Normal Inspection, Normal Mucosa, No Blood Throat/Mouth: Normal Inspection, Normal Lips, Normal Teeth, Normal Gums, Normal Oropharynx, Normal Voice, No Airway Compromise Head: Other (small abrasion to posterior scalp due to fall) Neck: Normal Inspection, Supple, Non-Tender, Full Range of Motion Respiratory/Chest: No Respiratory Distress, Lungs Clear, Normal Breath Sounds, No Accessory Muscle Use, Chest Non-Tender Cardiovascular: Normal Peripheral Pulses, Regular Rate, Rhythm GI/Abdominal: Normal Bowel Sounds, Soft, Non-Tender, No Organomegaly, No Distention, No Abnormal Bruit, No Mass, Tender (to left hip and pelvis) (Male) Exam: Deferred Rectal (Males) Exam: Deferred Extremities: Limited Range of Motion Neurological: Alert, Oriented, CN II-XII Intact, Normal Cognition, Abnormal Gait (due to left hip and pelvic pain) Psychiatric: Normal Affect, Normal Mood Skin Exam: Warm, Dry, Normal Color, No Rash, Wound/Incision (posterior scalp) Lymphatic: No Adenopathy #1 Interpretation EKG Date: 10/05/20 Time: 15:46 Rhythm: Other (Ventricular paced rhythm) QRS: Wide ST-T: Normal Comparison: No Change Course - Vital Signs Last Recorded V/S: Last Vital Signs Temp 100.5 F 10/05/20 16:10 Pulse 89 10/05/20 16:10 Resp 18 10/05/20 16:10 BP 94/60 10/05/20 16:10 Pulse Ox 90 L 10/05/20 16:10 - Orders/Labs/Meds Orders: Active Orders 24 hr Category Date Time Status EKG Documentation Completion [RC] STAT Care 10/05/20 15:44 Active CULTURE BLOOD [BC] Stat Lab 10/05/20 14:36 Received Labs: Laboratory Tests 10/05/20 10/05/20 10/05/20 Range/Units 14:36 14:36 14:36 WBC 5.8 (5.0-10.0) 10^3/uL RBC 2.77 L (4.6-6.2) 10^6/uL Hgb 9.0 L D (14.0-18.0) g/dL Hct 28.4 L (40.0-54.0) % MCV 102.5 H D (80-100) fL MCH 32.5 (27.0-34.0) pg MCHC 31.7 L (33.0-35.0) g/dL Plt Count 200 (150-450) 10^3/uL Neut % (Auto) 78.0 H (42.2-75.2) % Lymph % (Auto) 9.0 L (20.5-50.1) % [place] % (Auto) 10.6 H (2-8) % Eos % (Auto) 1.9 (1.0-3.0) % Baso % (Auto) 0.5 (0.0-1.0) % Sodium 138 (136-145) mmol/L Potassium 5.6 H (3.5-5.1) mmol/L Chloride 101 (98-107) mmol/L Carbon Dioxide 27 (21-32) mmol/L Anion Gap 15.6 H (7-13) mEq/L BUN 53 H (7-18) mg/dL Creatinine 3.90 H D (0.70-1.30) mg/dL Est Cr Clr Drug Dosing 15.75 mL/min Estimated GFR (MDRD) 15 BUN/Creatinine Ratio 13.6 (No establ ref range) Glucose 79 (70-99) mg/dL Lactic Acid 1.6 (0.4-2.0) mmol/L Calcium 8.5 (8.5-10.1) mg/dL Total Bilirubin 1.9 H (0.2-1.0) mg/dL AST 19 (15-37) U/L ALT 15 L (16-63) U/L Alkaline Phosphatase 144 H (46-116) U/L Troponin I High Sens (<=76) pg/mL Total Protein 6.9 (6.4-8.2) g/dL Albumin 3.1 L (3.4-5.0) g/dL Globulin 3.8 Albumin/Globulin Ratio 0.82 06/16/21 Range/Units 14:36 WBC (5.0-10.0) 10^3/uL RBC (4.6-6.2) 10^6/uL Hgb (14.0-18.0) g/dL Hct (40.0-54.0) % MCV (80-100) fL MCH (27.0-34.0) pg MCHC (33.0-35.0) g/dL Plt Count (150-450) 10^3/uL Neut % (Auto) (42.2-75.2) % Lymph % (Auto) (20.5-50.1) % [place] % (Auto) (2-8) % Eos % (Auto) (1.0-3.0) % Baso % (Auto) (0.0-1.0) % Sodium (136-145) mmol/L Potassium (3.5-5.1) mmol/L Chloride (98-107) mmol/L Carbon Dioxide (21-32) mmol/L Anion Gap (7-13) mEq/L BUN (7-18) mg/dL Creatinine (0.70-1.30) mg/dL Est Cr Clr Drug Dosing mL/min Estimated GFR (MDRD) BUN/Creatinine Ratio (No establ ref range) Glucose (70-99) mg/dL Lactic Acid (0.4-2.0) mmol/L Calcium (8.5-10.1) mg/dL Total Bilirubin (0.2-1.0) mg/dL AST (15-37) U/L ALT (16-63) U/L Alkaline Phosphatase (46-116) U/L Troponin I High Sens 9 (<=76) pg/mL Total Protein (6.4-8.2) g/dL Albumin (3.4-5.0) g/dL Globulin Albumin/Globulin Ratio - Re-Assessments/Exams Free Text/Narrative Re-Assessment/Exam: 10/05/20 14:32 Nursing reported a temperature of 102 upon arrival in the ED. The patient denies any recent illnesses. Departure - Departure Time of Disposition: 16:45 Disposition: Home, Self-Care 01 Condition: Fair Clinical Impression: Fall from ground level Contusion of left hip Qualifiers: Encounter type: initial encounter Qualified Code(s): S70.02XA - Contusion of left hip, initial encounter Head contusion Qualifiers: Encounter type: initial encounter Contusion of head detail: scalp Qualified Code(s): S00.03XA - Contusion of scalp, initial encounter - Discharge Information *PRESCRIPTION DRUG MONITORING PROGRAM REVIEWED*: Not Applicable *COPY OF PRESCRIPTION DRUG MONITORING REPORT IN PATIENT DANILO: Not Applicable Instructions: Fall Prevention in the Home, Adult, [id number], Contusion, [id number] Forms: ED Department Discharge Care Plan Goals: The patient and family were advised if the examination, lab and CT results during the visit. The patient was encouraged to rest and relax to allow his hip to recover from the fall. If the patient has any additional symptoms or concerns, the patient should either return to the emergency department or visit his primary care facility. Sepsis Event Note (ED) - Focused Exam Vital Signs: Vital Signs Temp Pulse Resp BP Pulse Ox 10/05/20 16:10 100.5 F 89 18 94/60 90 L 10/05/20 14:50 102.8 F H 100 20 94/54 L 94 L - My Orders Last 24 Hours: My Active Orders 10/05/20 14:36 CULTURE BLOOD [BC] Stat 10/05/20 15:44 EKG Documentation Completion [RC] STAT - Assessment/Plan Last 24 Hours: My Active Orders 10/05/20 14:36 CULTURE BLOOD [BC] Stat 10/05/20 15:44 EKG Documentation Completion [RC] STAT
[2020-10-05 15:16] LABS: ANION GAP 15.6 mEq/L (7-13)
--- NOTE | 2020-10-05 16:06 | CT ---
EXAMINATION: Head wo Cont SEX: Male AGE: 85 years CLINICAL HISTORY: 85-year-old 207 pound male on blood thinners obstructive back of his head (ground-level fall). Scan technique: Volume acquisition of data emergency unenhanced CT scan of the head and brain obtained with the patient lying supine on the Siemens multislice scanner [place], [place]. All data archived in the PACS system for storage, reformatting axial/sagittal/coronal planes and study. Interpretation: 1. Atrophy consistent with age. 2. Scattered multiple focal areas of decreased attenuation of the periventricular white matter characteristic of microvascular ischemic change. 3. Uniformly thick bony calvarium. No sign of skull fracture, underlying brain contusion or epidural/subdural hematoma. 4. No sign of acute intracerebral, intraventricular or subarachnoid bleed. 5. Physiologic midline pineal and symmetric choroid plexus calcifications. No supratentorial/posterior fossa mass lesion. 6. No hydrocephalus. No shift of the midline structures. 7. Cerebellum and brainstem unremarkable. CONCLUSION: No sign of skull fracture or closed head trauma. Atrophy. Chronic Multi-infarct ischemic disease. No sign of acute intracranial bleed.
--- NOTE | 2020-10-05 16:17 | CT ---
EXAMINATION: Pelvis wo Cont SEX: Male AGE: 85 years CLINICAL HISTORY: 207 pound male injured left hip and ground-level fall. Scan technique: Volume acquisition of data emergency unenhanced CT scan of the pelvis and both hips/proximal femurs obtained with patient lying supine on the Siemens multislice scanner [place], [place]. All data archived in the PACS system for storage, reformatting axial/sagittal/coronal planes and study. Interpretation: 1. Multilevel lower lumbar disc degeneration i.e. interspace narrowing endplate sclerosis and hypertrophic marginal spondylosis L4-5 L5-S1 levels. 2. Homogeneous normal bone mineral density for age and gender. 3. Symmetric spacing normal-appearing SI/hip joints without appreciable arthritic degenerative or destructive changes. 4. *No pathologic skeletal lesion, pelvic or either hip fracture/dislocation. 5. Sigmoid diverticulosis without associated inflammation. Large volume of ascitic fluid noted November,. 6. Numerous midline radiation "seeds", prostate gland. CONCLUSION: Chronic ascites. No pelvic or hip fractures. Chronic multilevel lower lumbar disc degeneration.
== END 2020-10-05 17:11 | disposition home or self-care (01) ==
LOC: DL.ED 13:56
DX: S00.03XA Contusion of scalp, initial encounter (principal); S70.02XA Contusion of left hip, initial encounter; I25.10 Atherosclerotic heart disease of native coronary artery without angina pectoris; I10 Essential (primary) hypertension; E66.9 Obesity, unspecified; Z68.30 Body mass index [BMI] 30.0-30.9, adult; Z88.1 Allergy status to other antibiotic agents; Z79.899 Other long term (current) drug therapy; Z79.82 Long term (current) use of aspirin; W18.39XA Other fall on same level, initial encounter
CPT/HCPCS: 36415; 70450; 72192; 80053; 81003; 83605; 84484; 85025; 87040; 93005; 93010; 99284; 99284-25

== ENCOUNTER 2020-12-16 13:06 | Inpatient (IN) | payer MEDICARE, OTHER ==
[2020-12-16 14:21] LABS: ANION GAP 13.2 mEq/L (7-13)
--- NOTE | 2020-12-16 14:30 | CR ---
PROCEDURE INFORMATION: Exam: XR Chest Exam date and time: 12/16/2020 1:55 PM Age: 85 years old Clinical indication: Other: Chest pain TECHNIQUE: Imaging protocol: XR of the chest. Views: 1 view. COMPARISON: CR Chest 1V Frontal 07/06/2019 10:10 PM FINDINGS: Tubes, catheters and devices: A left-sided AICD is again present. Previous left chest tube has been removed. Lungs: There is mild bibasilar atelectasis. The lungs are otherwise clear. Pleural spaces: Unremarkable. No pleural effusion. No pneumothorax. Heart/Mediastinum: Unremarkable. No cardiomegaly. Bones/joints: There are again bilateral shoulder prostheses. Degenerative changes again involve the spine. IMPRESSION: No evidence for acute pulmonary disease.
[2020-12-16] MEDS ORDERED: Furosemide 40 MG/4 ML VIAL IVPUSH ONE (14:36)
--- NOTE | 2020-12-16 14:41 | EDM.PDOC ---
ED HPI GENERAL MEDICAL PROBLEM - General Chief Complaint: General Stated Complaint: FLUID BUILD UP IN LUNGS Time Seen by Provider: 12/16/20 13:25 Source of Information: Reports: Patient, RN, RN Notes Reviewed History Limitations: Reports: No Limitations - History of Present Illness INITIAL COMMENTS - FREE TEXT/NARRATIVE: Patient is an 85-year-old male who presents to ER with his daughter with complaint of fluid overload. Patient was hospitalized at and was discharged on 12/14/2020. He did have paracentesis while he was hospitalized there. He has been refusing dialysis, hemodialysis as well as peritoneal dialysis. Post discharge weight from [facility] was 174 pounds, today he was 198 pounds for home health. Home health began seeing him upon discharge fr om the hospital. Patient is currently consulting with hospice, he does agree to hospice consult. Patient states he does have his home medications but has not been taking them as prescribed. Patient and family state the reason for visit to the ER today is the weight gain, lower extremities are taut, hard, weeping, erythematous. Abdomen is also erythematous. Daughter states there was some erythema on the flank areas after paracentesis, and today it is wrapped across the belly. Abdomen is semifirm. 12/14/2020 weight 174 pounds 12/15/2020 184 pounds 12/17/2019 198 pounds Per home health. Patient denies any fever, chills, chest pains or shortness of breath, urinary symptoms, nausea, vomiting, diarrhea. Onset: Gradual Neck Pain Score (Numeric/FACES): 5 - Related Data Allergies Allergy/AdvReac Type Severity Reaction Status Date / Time levofloxacin [From Levaquin] Allergy Cannot Verified 12/16/20 16:20 Remember Home Meds: Home Meds Tamsulosin [Flomax] 1 tab PO DAILY 04/24/17 [History] Escitalopram [Lexapro] 20 mg PO DAILY 10/30/17 [History] carvediloL [Carvedilol] 3.125 mg PO BID 10/30/17 [History] Nitroglycerin 0.4 mg PO ASDIRECTED PRN 03/31/19 [History] Omeprazole 20 mg PO BID 03/31/19 [History] Aspirin 81 mg PO DAILY 06/16/19 [History] Levothyroxine [Synthroid] 125 mcg PO DAILY 06/16/19 [History] Potassium Chloride 20 meq PO BID 06/16/19 [History] Bumetanide 2 mg PO DAILY 07/06/19 [History] Finasteride [Proscar] 5 mg PO DAILY 07/06/19 [History] Acetaminophen [Tylenol] 650 mg PO Q6H PRN 09/29/19 [History] Ferrous Sulfate 325 mg PO DAILY 09/29/19 [History] Gabapentin [Neurontin] 300 mg PO BEDTIME 12/16/20 [History] LORazepam [Lorazepam] 0.5 mg PO BEDTIME 12/16/20 [History] Midodrine 15 mg PO TID 12/16/20 [History] Mirabegron [Myrbetriq] 25 mg PO BEDTIME 12/16/20 [History] hydrOXYzine HCL [hydrOXYzine] 25 mg PO Q6HR PRN 12/16/20 [History] metOLazone [Metolazone] 5 mg PO DAILY 12/16/20 [History] Past Medical History HEENT History: Reports: Head, Other (See Below) Other HEENT History: wears hearing aides Cardiovascular History: Reports: Afib, CAD, Hypertension Other Cardiovascular History: Aicd. Respiratory History: Reports: Other (See Below) Other Respiratory History: recent URI Gastrointestinal History: Reports: None Genitourinary History: Reports: BPH, Prostate Disorder Musculoskeletal History: Reports: Osteoarthritis, Other (See Below) Other Musculoskeletal History: neck pain. Neurological History: Reports: None Psychiatric History: Reports: Depression Endocrine/Metabolic History: Reports: Obesity/BMI 30+ Hematologic History: Reports: None Immunologic History: Reports: None Oncologic (Cancer) History: Reports: None Dermatologic History: Reports: None - Infectious Disease History Infectious Disease History: Reports: Mumps Other Infectious Disease History: unsure cant remember - Past Surgical History HEENT Surgical History: Reports: Cataract Surgery, Other (See Below) Other HEENT Surgeries/Procedures: bilateral Cardiovascular Surgical History: Reports: Pacer Other Cardiovascular Surgeries/Procedures: reports pacer removed, defibrilator inserted Respiratory Surgical History: Reports: None GI Surgical History: Reports: Colonoscopy Male Surgical History: Reports: None Musculoskeletal Surgical History: Reports: Joint Replacement, Knee Replacement, Shoulder Replacement, Shoulder Surgery Other Musculoskeletal Surgeries/Procedures:: bilat knee replacement. Right shoulder replaced Social & Family History - Family History Family Medical History: No Pertinent Family History - Tobacco Use Tobacco Use Status *Q: Unknown Ever Used Tobacco - Caffeine Use Caffeine Use: Reports: Soda Other Caffeine Use: 2-3 cans per day - Recreational Drug Use Recreational Drug Use: No - Living Situation & Occupation Living situation: Reports: , Alone Occupation: Retired ED ROS GENERAL - Review of Systems Review Of Systems: Comprehensive ROS is negative, except as noted in HPI. ED EXAM, GENERAL - Physical Exam Exam: See Below Exam Limited By: No Limitations General Appearance: Alert, WD/WN, No Apparent Distress Eye Exam: Bilateral Eye: EOMI, Normal Inspection, PERRL Ears: Normal External Exam, Normal Canal, Hearing Grossly Normal, Normal TMs Nose: Normal Inspection, Normal Mucosa, No Blood Throat/Mouth: Normal Inspection, Normal Lips, Normal Teeth, Normal Gums, Normal Oropharynx, Normal Voice, No Airway Compromise Head: Atraumatic, Normocephalic Neck: Normal Inspection, Supple, Non-Tender, Full Range of Motion Respiratory/Chest: Crackles (diminished fine crackles throughout) Cardiovascular: Normal Peripheral Pulses, Regular Rate, Rhythm, No Edema, No Gallop, No JVD, No Murmur, No Rub GI/Abdominal: Other (semi firm and erythematous) (Male) Exam: Deferred Rectal (Males) Exam: Deferred Back Exam: Normal Inspection Extremities: Other (weak) Neurological: Alert, Oriented, CN II-XII Intact, Normal Cognition, Normal Gait, Normal Reflexes, No Motor/Sensory Deficits Psychiatric: Normal Affect, Normal Mood Skin Exam: Other (lower extremities red, taut, weeping and firm. +4 pitting edema. ) Lymphatic: No Adenopathy #1 Interpretation EKG Date: 12/16/20 Time: 13:58 Rate (Beats/Min): 71 (atrial sensed ventricular paced complexes) Course - Vital Signs Last Recorded V/S: Last Vital Signs Temp 97.6 F 12/17/20 08:00 Pulse 77 12/17/20 08:00 Resp 12 12/17/20 08:00 BP 87/54 L 12/17/20 08:00 Pulse Ox 96 12/17/20 08:00 - Orders/Labs/Meds Orders: Active Orders 24 hr Category Date Time Status CULTURE BLOOD [BC] Stat Lab 12/16/20 13:54 Received CULTURE BLOOD [BC] Stat Lab 12/16/20 14:09 Received Blood Culture x2 Reflex Set [OM.PC] Stat Oth 12/16/20 13:34 Ordered Medication Orders Acetaminophen (Acetaminophen 325 Mg Tab) 650 mg PO Q6H PRN PRN Reason: Pain (mild 1-3) Last Admin: 12/17/20 06:18 Dose: 650 mg Documented by: Admin: 12/16/20 19:11 Dose: 650 mg Documented by: JESSI Aspirin (Aspirin 81 Mg Tab.Chew) 81 mg PO DAILY SERGEI Last Admin: 12/17/20 08:48 Dose: 81 mg Documented by: PREET Docusate Sodium (Docusate Sodium 100 Mg Cap) 100 mg PO BID PRN PRN Reason: Constipation Escitalopram Oxalate (Escitalopram 10 Mg Tab) 20 mg PO DAILY [facility] Last Admin: 12/17/20 08:48 Dose: 20 mg Documented by: PREET Ferrous Sulfate (Ferrous Sulfate 325 Mg Tab) 325 mg PO DAILY SERGEI Last Admin: 12/17/20 08:48 Dose: 325 mg Documented by: PREET Finasteride (Finasteride 5 Mg Tab) 5 mg PO DAILY [facility]I Last Admin: 12/17/20 08:48 Dose: 5 mg Documented by: PREET Gabapentin (Gabapentin 300 Mg Cap) 300 mg PO BEDTIME [facility]GEI Last Admin: 12/16/20 21:00 Dose: 300 mg Documented by: ERMELINDA Heparin Sodium (Porcine) (Heparin Sodium 5,000 Units/Ml Vial) 5,000 units SUBCUT Q8HR SERGEI Last Admin: 12/17/20 06:11 Dose: 5,000 units Documented by: Admin: 12/16/20 21:02 Dose: 5,000 units Documented by: ERMELINDA Hydroxyzine HCl (Hydroxyzine Hcl 25 Mg Tab) 25 mg PO Q6H PRN PRN Reason: Itching Ceftriaxone Sodium 1 gm/ (Sodium Chloride) 50 mls @ 100 mls/hr IV Q24H SERGEI Furosemide 100 mg/ Sodium (Chloride) 100 mls @ 5 mls/hr IV CONTINUOUS SERGEI; Protocol Last Admin: 12/16/20 22:40 Dose: 5 mg/hr, 5 mls/hr Documented by: IRWIN Levothyroxine Sodium (Levothyroxine 50 Mcg Tab) 125 mcg PO ACBREAKFAST SERGEI Last Admin: 12/17/20 06:12 Dose: 125 mcg Documented by: ERMELINDA Lorazepam (Lorazepam 0.5 Mg Tab) 0.5 mg PO BEDTIME [facility] Last Admin: 12/16/20 20:59 Dose: 0.5 mg Documented by: ERMELINDA Metolazone (Metolazone 2.5 Mg Tab) 5 mg PO DAILY [facility] Last Admin: 12/17/20 08:48 Dose: 5 mg Documented by: PREET Midodrine (Midodrine 2.5 Mg Tab) 5 mg PO TIDAC [facility] Last Admin: 12/17/20 06:12 Dose: 5 mg Documented by: Admin: 12/16/20 20:58 Dose: 5 mg Documented by: ERMELINDA Nitroglycerin (Nitroglycerin 0.4 Mg Tab.Sl) 0.4 mg SL ASDIRECTED PRN PRN Reason: Chest Pain Omeprazole (Omeprazole 20 Mg Cap.Cr) 20 mg PO BID [facility] Last Admin: 12/17/20 08:48 Dose: 20 mg Documented by: Admin: 12/16/20 20:59 Dose: 20 mg Documented by: ERMELINDA Ondansetron HCl (Ondansetron 4 Mg Tab.Dis) 4 mg PO Q6H PRN PRN Reason: nausea, able to take PO Potassium Chloride (Potassium Chloride 10 Meq Tab.Er) 30 meq PO BID [facility] Last Admin: 12/17/20 08:48 Dose: 30 meq Documented by: Admin: 12/16/20 21:00 Dose: 30 meq Documented by: ERMELINDA Sodium Chloride (Sodium Chloride 0.9% 10 Ml Syringe) 10 ml FLUSH ASDIRECTED PRN PRN Reason: Keep Vein Open Tamsulosin HCl (Tamsulosin 0.4 Mg Cap.Er) 0.4 mg PO DAILY [facility] Last Admin: 12/17/20 08:48 Dose: 0.4 mg Documented by: PREET Temazepam (Temazepam 15 Mg Cap) 15 mg PO BEDTIME PRN PRN Reason: Sleep Last Admin: 12/16/20 23:09 Dose: 15 mg Documented by: ERMELINDA Labs: Laboratory Tests 12/16/20 12/16/20 Range/Units 13:54 13:54 WBC 6.6 (5.0-10.0) 10^3/uL RBC 3.42 L (4.6-6.2) 10^6/uL Hgb 10.9 L D (14.0-18.0) g/dL Hct 33.8 L (40.0-54.0) % MCV 98.8 D (80-100) fL MCH 31.9 (27.0-34.0) pg MCHC 32.2 L (33.0-35.0) g/dL Plt Count 218 (150-450) 10^3/uL Neut % (Auto) 78.6 H (42.2-75.2) % Lymph % (Auto) 8.1 L (20.5-50.1) % [place] % (Auto) 10.3 H (2-8) % Eos % (Auto) 2.7 (1.0-3.0) % Baso % (Auto) 0.3 (0.0-1.0) % Sodium 136 (136-145) mmol/L Potassium 3.2 L D (3.5-5.1) mmol/L Chloride 92 L (98-107) mmol/L Carbon Dioxide 34 H (21-32) mmol/L Anion Gap 13.2 H (7-13) mEq/L BUN 43 H (7-18) mg/dL Creatinine 2.58 H D (0.70-1.30) mg/dL Est Cr Clr Drug Dosing 23.81 mL/min Estimated GFR (MDRD) 24 BUN/Creatinine Ratio 16.7 (No establ ref range) Glucose 80 (70-99) mg/dL Calcium 8.6 (8.5-10.1) mg/dL Total Bilirubin 1.3 H (0.2-1.0) mg/dL AST 16 (15-37) U/L ALT 10 L (16-63) U/L Alkaline Phosphatase 165 H (46-116) U/L C-Reactive Protein 7.0 H (0.0-0.9) mg/dL B-Natriuretic Peptide 493 H (0-100) pg/ml Total Protein 7.2 (6.4-8.2) g/dL Albumin 3.4 (3.4-5.0) g/dL Globulin 3.8 Albumin/Globulin Ratio 0.9 Meds: Medications Generic Name Dose Route Start Last Admin Trade Name Freq PRN Reason Stop Dose Admin Acetaminophen 650 mg 12/16/20 16:37 12/17/20 06:18 Acetaminophen 325 Mg Tab PO 650 mg Q6H PRN Administration Pain (mild 1-3) Aspirin 81 mg 12/17/20 09:00 12/17/20 08:48 Aspirin 81 Mg Tab.Chew PO 81 mg DAILY SERGEI Administration Docusate Sodium 100 mg 12/16/20 17:04 Docusate Sodium 100 Mg Cap PO BID PRN Constipation Escitalopram Oxalate 20 mg 12/17/20 09:00 12/17/20 08:48 Escitalopram 10 Mg Tab PO 20 mg DAILY SERGEI Administration Ferrous Sulfate 325 mg 12/17/20 09:00 12/17/20 08:48 Ferrous Sulfate 325 Mg Tab PO 325 mg DAILY SERGEI Administration Finasteride 5 mg 12/17/20 09:00 12/17/20 08:48 Finasteride 5 Mg Tab PO 5 mg DAILY SERGEI Administration Gabapentin 300 mg 12/16/20 21:00 12/16/20 21:00 Gabapentin 300 Mg Cap PO 300 mg BEDTIME SERGEI Administration Heparin Sodium (Porcine) 5,000 units 12/16/20 22:00 12/17/20 06:11 Heparin Sodium 5,000 Units/Ml Vial SUBCUT 5,000 units Q8HR SERGEI Administration Hydroxyzine HCl 25 mg 12/16/20 17:37 Hydroxyzine Hcl 25 Mg Tab PO Q6H PRN Itching Ceftriaxone Sodium 1 gm/ 50 mls @ 100 mls/hr 12/17/20 16:00 Sodium Chloride IV Q24H SERGEI Furosemide 100 mg/ Sodium 100 mls @ 5 mls/hr 12/16/20 17:00 12/16/20 22:40 Chloride IV 5 mg/hr CONTINUOUS SERGEI 5 mls/hr Administration Protocol 5 MG/HR Levothyroxine Sodium 125 mcg 12/17/20 06:00 12/17/20 06:12 Levothyroxine 50 Mcg Tab PO 125 mcg ACBREAKFAST SERGEI Administration Lorazepam 0.5 mg 12/16/20 21:00 12/16/20 20:59 Lorazepam 0.5 Mg Tab PO 0.5 mg BEDTIME SERGEI Administration Metolazone 5 mg 12/17/20 09:00 12/17/20 08:48 Metolazone 2.5 Mg Tab PO 5 mg DAILY SERGEI Administration Midodrine 5 mg 12/16/20 18:00 12/17/20 06:12 Midodrine 2.5 Mg Tab PO 5 mg TIDAC SERGEI Administration Nitroglycerin 0.4 mg 12/16/20 16:37 Nitroglycerin 0.4 Mg Tab.Sl SL ASDIRECTED PRN Chest Pain Omeprazole 20 mg 12/16/20 21:00 12/17/20 08:48 Omeprazole 20 Mg Cap.Cr PO 20 mg BID SERGEI Administration Ondansetron HCl 4 mg 12/16/20 17:04 Ondansetron 4 Mg Tab.Dis PO Q6H PRN nausea, able to take PO Potassium Chloride 30 meq 12/16/20 21:00 12/17/20 08:48 Potassium Chloride 10 Meq Tab.Er PO 30 meq BID SERGEI Administration Sodium Chloride 10 ml 12/16/20 17:04 Sodium Chloride 0.9% 10 Ml Syringe FLUSH ASDIRECTED PRN Keep Vein Open Tamsulosin HCl 0.4 mg 12/17/20 09:00 12/17/20 08:48 Tamsulosin 0.4 Mg Cap.Er PO 0.4 mg DAILY SERGEI Administration Temazepam 15 mg 12/16/20 17:04 12/16/20 23:09 Temazepam 15 Mg Cap PO 15 mg BEDTIME PRN Administration Sleep Discontinued Medications Generic Name Dose Route Start Last Admin Trade Name Freq PRN Reason Stop Dose Admin Carvedilol 3.125 mg 12/16/20 21:00 Carvedilol 3.125 Mg Tab PO BID SERGEI Ceftriaxone Sodium 1 gm 12/17/20 16:00 Ceftriaxone 1 Gm Vial IVPUSH Q24H SERGEI Furosemide 40 mg 12/16/20 14:36 12/16/20 15:02 Furosemide 40 Mg/4 Ml Vial IVPUSH 12/16/20 14:37 40 mg ONETIME ONE Administration Ceftriaxone Sodium 1 gm/ 50 mls @ 100 mls/hr 12/16/20 15:16 12/16/20 15:50 Sodium Chloride IV 12/16/20 15:45 100 mls/hr ONETIME ONE Administration Potassium Chloride 10 meq/ 100 mls @ 50 mls/hr 12/16/20 17:00 12/17/20 03:23 Premix IV 12/17/20 00:59 Infused Q2H SERGEI Infusion Levothyroxine Sodium 50 mcg 12/17/20 09:00 Levothyroxine 50 Mcg Tab PO DAILY SERGEI Potassium Chloride 20 meq 12/16/20 21:00 Potassium Chloride 10 Meq Tab.Er PO BID SERGEI - Radiology Interpretation Free Text/Narrative:: Chest xray: PROCEDURE INFORMATION: Exam: XR Chest Exam date and time: 12/16/2020 1:55 PM Age: 85 years old Clinical indication: Other: Chest pain TECHNIQUE: Imaging protocol: XR of the chest. Views: 1 view. COMPARISON: CR Chest 1V Frontal 07/06/2019 10:10 PM FINDINGS: Tubes, catheters and devices: A left-sided AICD is again present. Previous left chest tube has been removed. Lungs: There is mild bibasilar atelectasis. The lungs are otherwise clear. Pleural spaces: Unremarkable. No pleural effusion. No pneumothorax. Heart/Mediastinum: Unremarkable. No cardiomegaly. Bones/joints: There are again bilateral shoulder prostheses. Degenerative changes again involve the spine. IMPRESSION: No evidence for acute pulmonary disease. Thank you for allowing us to participate in the care of your patient. Dictated and Authenticated by: Sekou Cardona MD 12/16/2020 2:29 PM Central Time ([place] & [place]) See rad report - Re-Assessments/Exams Free Text/Narrative Re-Assessment/Exam: 12/17/20 10:11 Discussed patient case with Dr. Schumacher who agreed to admit the patient for inpatient admission. Departure - Departure Time of Disposition: 15:57 Disposition: Admitted As Inpatient 68 Condition: Fair Clinical Impression: Kidney disease Ascites Qualifiers: Ascites type: other type Qualified Code(s): R18.8 - Other ascites Fluid overload Qualifiers: Hypervolemia type: unspecified Qualified Code(s): E87.70 - Fluid overload, unspecified - Discharge Information *PRESCRIPTION DRUG MONITORING PROGRAM REVIEWED*: No *COPY OF PRESCRIPTION DRUG MONITORING REPORT IN PATIENT DANILO: No Sepsis Event Note (ED) - Evaluation Sepsis Screening Result: No Definite Risk - My Orders Last 24 Hours: My Active Orders 12/16/20 13:34 Blood Culture x2 Reflex Set [OM.PC] Stat 12/16/20 13:54 CULTURE BLOOD [BC] Stat 12/16/20 14:09 CULTURE BLOOD [BC] Stat - Assessment/Plan Last 24 Hours: My Active Orders 12/16/20 13:34 Blood Culture x2 Reflex Set [OM.PC] Stat 12/16/20 13:54 CULTURE BLOOD [BC] Stat 12/16/20 14:09 CULTURE BLOOD [BC] Stat
[2020-12-16] MEDS ORDERED: cefTRIAXone 1 GM in Sodium Chloride 0.9% 50 ML IV ONE (15:16)
[2020-12-16] MEDS ORDERED: Nitroglycerin 0.4 MG Tab.SL SL PRN (16:37)
[2020-12-16] MEDS ORDERED: Temazepam 15 MG Cap PO PRN (17:04)
[2020-12-16] MEDS ORDERED: Sodium Chloride 0.9% 10 ML Syringe FLUSH PRN (17:04)
[2020-12-16] MEDS ORDERED: Docusate Sodium 100 MG Cap PO PRN (17:04)
[2020-12-16] MEDS ORDERED: Ondansetron 4 MG Tab.DIS PO PRN (17:04)
[2020-12-16] MEDS ORDERED: hydrOXYzine HCl 25 MG Tab PO PRN (17:37)
--- NOTE | 2020-12-16 17:52 | PCM.HP ---
H&P History of Present Illness - General Date of Service: 12/16/20 Admit Problem/Dx: Admission Diagnosis/Problem Admission Diagnosis/Problem Cellulitis Source of Information: Patient, Family - History of Present Illness Initial Comments - Free Text/Narative: 85-year-old with a history of nonischemic cardiomyopathy, congestive heart failure with preserved ejection fraction, chronic kidney disease stage IV, pulmonary hypertension, biventricular pacemaker with history of massive fluid overload with lower extremity swelling, ascites the patient was recently hospitalized for significant lower extremity edema, ascites. He was diuresed, had paracentesis. The patient was discharged home with oral diuretics, home care was following the patient. It was noted that the patient's weight has been increasing, edema around the abdomen is increasing, erythema appeared that this usually sign of fluid ret ention in this patient. he denies fever. It appears that he did not take his diuretics for about 24 hours was brought into the emergency room. He was given IV Lasix. - Related Data Allergies/Adverse Reactions: Allergies Allergy/AdvReac Type Severity Reaction Status Date / Time levofloxacin [From Levaquin] Allergy Cannot Verified 12/16/20 16:20 Remember Home Medications: Home Meds Tamsulosin [Flomax] 1 tab PO DAILY 04/24/17 [History] Escitalopram [Lexapro] 20 mg PO DAILY 10/30/17 [History] carvediloL [Carvedilol] 3.125 mg PO BID 10/30/17 [History] Nitroglycerin 0.4 mg PO ASDIRECTED PRN 03/31/19 [History] Omeprazole 20 mg PO BID 03/31/19 [History] Aspirin 81 mg PO DAILY 06/16/19 [History] Levothyroxine [Synthroid] 50 mcg PO DAILY 06/16/19 [History] Potassium Chloride 20 meq PO BID 06/16/19 [History] Bumetanide 2 mg PO BID 07/06/19 [History] Finasteride [Proscar] 5 mg PO DAILY 07/06/19 [History] Acetaminophen [Tylenol] 650 mg PO Q6H PRN 09/29/19 [History] Ferrous Sulfate 325 mg PO DAILY 09/29/19 [History] Past Medical History HEENT History: Reports: Head, Other (See Below) Other HEENT History: wears hearing aides Cardiovascular History: Reports: Afib, CAD, Hypertension Other Cardiovascular History: Aicd. Respiratory History: Reports: Other (See Below) Other Respiratory History: recent URI Gastrointestinal History: Reports: None Genitourinary History: Reports: BPH, Prostate Disorder Musculoskeletal History: Reports: Osteoarthritis, Other (See Below) Other Musculoskeletal History: neck pain. Neurological History: Reports: None Psychiatric History: Reports: Depression Endocrine/Metabolic History: Reports: Obesity/BMI 30+ Hematologic History: Reports: None Immunologic History: Reports: None Oncologic (Cancer) History: Reports: None Dermatologic History: Reports: None - Infectious Disease History Infectious Disease History: Reports: Mumps Other Infectious Disease History: unsure cant remember - Past Surgical History HEENT Surgical History: Reports: Cataract Surgery, Other (See Below) Other HEENT Surgeries/Procedures: bilateral Cardiovascular Surgical History: Reports: Pacer Other Cardiovascular Surgeries/Procedures: reports pacer removed, defibrilator inserted Respiratory Surgical History: Reports: None GI Surgical History: Reports: Colonoscopy Male Surgical History: Reports: None Musculoskeletal Surgical History: Reports: Joint Replacement, Knee Replacement, Shoulder Replacement, Shoulder Surgery Other Musculoskeletal Surgeries/Procedures:: bilat knee replacement. Right shoulder replaced Social & Family History - Family History Family Medical History: No Pertinent Family History - Tobacco Use Tobacco Use Status *Q: Unknown Ever Used Tobacco - Caffeine Use Caffeine Use: Reports: Soda Other Caffeine Use: 2-3 cans per day - Recreational Drug Use Recreational Drug Use: No - Living Situation & Occupation Living situation: Reports: , Alone Occupation: Retired H&P Review of Systems - Review of Systems: Review Of Systems: See Below General: Denies: Fever Pulmonary: Denies: Shortness of Breath Cardiovascular: Reports: Edema. Denies: Chest Pain, Syncope Gastrointestinal: Denies: Abdominal Pain, Diarrhea Genitourinary: Denies: Dysuria Skin: Reports: Erythema, Wound (few areas of blisters of bilateral lower extremities) Neurological: Denies: Confusion Hematologic/Lymphatic: Reports: Anemia Exam - Exam Exam: See Below - Vital Signs Vital Signs: Last Vital Signs Temp 97.1 F 12/16/20 13:52 Pulse 76 12/16/20 13:52 Resp 16 12/16/20 13:52 BP 105/69 12/16/20 13:52 Pulse Ox 100 12/16/20 13:52 Weight: 199 lb - Exam Quality Assessment: No: Supplemental Oxygen General: Alert, Oriented Neck: Supple Lungs: Clear to Auscultation Cardiovascular: Regular Rate, Regular Rhythm GI/Abdominal Exam: Normal Bowel Sounds, Soft, Non-Tender Extremities: Pedal Edema (, tight skin) Skin: Warm, Other (erythema of bilateral lower extremities, both like erythema of skin, edema buttocks, lower extremities, lower abdomen) Neuro Extensive - Mental Status: Alert, Oriented x3 Psychiatric: Alert, Normal Affect, Normal Mood - Patient Data Lab Results Last 24 hrs: Laboratory Results - last 24 hr 12/16/20 12/16/20 12/16/20 Range/Units 13:54 13:54 15:19 WBC 6.6 (5.0-10.0) 10^3/uL RBC 3.42 L (4.6-6.2) 10^6/uL Hgb 10.9 L D (14.0-18.0) g/dL Hct 33.8 L (40.0-54.0) % MCV 98.8 D (80-100) fL MCH 31.9 (27.0-34.0) pg MCHC 32.2 L (33.0-35.0) g/dL Plt Count 218 (150-450) 10^3/uL Neut % (Auto) 78.6 H (42.2-75.2) % Lymph % (Auto) 8.1 L (20.5-50.1) % [place] % (Auto) 10.3 H (2-8) % Eos % (Auto) 2.7 (1.0-3.0) % Baso % (Auto) 0.3 (0.0-1.0) % Sodium 136 (136-145) mmol/L Potassium 3.2 L D (3.5-5.1) mmol/L Chloride 92 L (98-107) mmol/L Carbon Dioxide 34 H (21-32) mmol/L Anion Gap 13.2 H (7-13) mEq/L BUN 43 H (7-18) mg/dL Creatinine 2.58 H D (0.70-1.30) mg/dL Est Cr Clr Drug Dosing 23.81 mL/min Estimated GFR (MDRD) 24 BUN/Creatinine Ratio 16.7 (No establ ref range) Glucose 80 (70-99) mg/dL Calcium 8.6 (8.5-10.1) mg/dL Total Bilirubin 1.3 H (0.2-1.0) mg/dL AST 16 (15-37) U/L ALT 10 L (16-63) U/L Alkaline Phosphatase 165 H (46-116) U/L C-Reactive Protein 7.0 H (0.0-0.9) mg/dL B-Natriuretic Peptide 493 H (0-100) pg/ml Total Protein 7.2 (6.4-8.2) g/dL Albumin 3.4 (3.4-5.0) g/dL Globulin 3.8 Albumin/Globulin Ratio 0.9 Urine Color (YELLOW) Urine Appearance (CLEAR) Urine pH (5.0-9.0) Ur Specific [place] (1.005-1.030) Urine Protein (NEGATIVE) Urine Glucose (UA) (NEGATIVE) Urine Ketones (NEGATIVE) Urine Occult Blood (NEGATIVE) Urine Nitrite (NEGATIVE) Urine Bilirubin (NEGATIVE) Urine Urobilinogen (0.2-1.0) mg/dL Ur Leukocyte Esterase (NEGATIVE) U Hyaline Cast (Auto) Urine RBC (0-5) /HPF Urine WBC (0-5/HPF) /HPF Ur Epithelial Cells (NOT SEEN) /HPF Urine Mucus (NOT SEEN) /LPF SARS CoV-2 RNA Rapid LORETO Negative (NEGATIVE) 12/16/20 Range/Units 15:49 WBC (5.0-10.0) 10^3/uL RBC (4.6-6.2) 10^6/uL Hgb (14.0-18.0) g/dL Hct (40.0-54.0) % MCV (80-100) fL MCH (27.0-34.0) pg MCHC (33.0-35.0) g/dL Plt Count (150-450) 10^3/uL Neut % (Auto) (42.2-75.2) % Lymph % (Auto) (20.5-50.1) % [place] % (Auto) (2-8) % Eos % (Auto) (1.0-3.0) % Baso % (Auto) (0.0-1.0) % Sodium (136-145) mmol/L Potassium (3.5-5.1) mmol/L Chloride (98-107) mmol/L Carbon Dioxide (21-32) mmol/L Anion Gap (7-13) mEq/L BUN (7-18) mg/dL Creatinine (0.70-1.30) mg/dL Est Cr Clr Drug Dosing mL/min Estimated GFR (MDRD) BUN/Creatinine Ratio (No establ ref range) Glucose (70-99) mg/dL Calcium (8.5-10.1) mg/dL Total Bilirubin (0.2-1.0) mg/dL AST (15-37) U/L ALT (16-63) U/L Alkaline Phosphatase (46-116) U/L C-Reactive Protein (0.0-0.9) mg/dL B-Natriuretic Peptide (0-100) pg/ml Total Protein (6.4-8.2) g/dL Albumin (3.4-5.0) g/dL Globulin Albumin/Globulin Ratio Urine Color Yellow (YELLOW) Urine Appearance Clear (CLEAR) Urine pH 7.0 (5.0-9.0) Ur Specific [place] 1.020 (1.005-1.030) Urine Protein Negative (NEGATIVE) Urine Glucose (UA) Negative (NEGATIVE) Urine Ketones Negative (NEGATIVE) Urine Occult Blood Trace-intact H (NEGATIVE) Urine Nitrite Negative (NEGATIVE) Urine Bilirubin Negative (NEGATIVE) Urine Urobilinogen 0.2 (0.2-1.0) mg/dL Ur Leukocyte Esterase Negative (NEGATIVE) U Hyaline Cast (Auto) Few Urine RBC 0-5 (0-5) /HPF Urine WBC 0-5 (0-5/HPF) /HPF Ur Epithelial Cells Few (NOT SEEN) /HPF Urine Mucus Few H (NOT SEEN) /LPF SARS CoV-2 RNA Rapid LORETO (NEGATIVE) Result Diagrams: 12/16/20 13:54 12/16/20 13:54 - Problem List (1) Hypokalemia SNOMED Code(s): 36318141 ICD Code: E87.6 - HYPOKALEMIA Status: Acute Current Visit: Yes (2) Hypothyroidism SNOMED Code(s): 59173742 ICD Code: E03.9 - HYPOTHYROIDISM, UNSPECIFIED Status: Acute Current Visit: Yes (3) Depression SNOMED Code(s): 67183875 ICD Code: F32.9 - MAJOR DEPRESSIVE DISORDER, SINGLE EPISODE, UNSPECIFIED Status: Acute Current Visit: Yes (4) Atrial fibrillation SNOMED Code(s): 94162075 ICD Code: I48.91 - UNSPECIFIED ATRIAL FIBRILLATION Status: Acute Current Visit: Yes (5) CHF, Congestive heart failure SNOMED Code(s): 95637901 ICD Code: I50.9 - HEART FAILURE, UNSPECIFIED Status: Acute Current Visit: No Problem List Initiated/Reviewed/Updated: Yes Orders Last 24hrs: Active Orders 24 hr Category Date Time Status Admission Diagnosis [ADT] Stat ADT 12/16/20 15:17 Ordered Admission Status [Patient Status] [ADT] Routine ADT 12/16/20 15:17 Active Oxygen Therapy [RC] PRN Care 12/16/20 17:04 Active Peripheral IV Care [RC] Care 12/16/20 17:06 Active Up With Assistance [RC] ASDIRECTED Care 12/16/20 17:04 Active VTE/DVT Education [RC] PER UNIT ROUTINE Care 12/16/20 17:04 Active Vital Signs [RC] 00,04,08,12,16,20 Care 12/16/20 17:04 Active Wound Care [RC] DAILY Care 12/16/20 17:38 Active Regular Diet [DIET] Diet 12/16/20 Dinner Active BASIC METABOLIC PANEL,BMP [CHEM] AM Lab 12/17/20 05:11 Ordered BASIC METABOLIC PANEL,BMP [CHEM] Timed Lab 12/17/20 22:00 Ordered CBC W/O DIFF,HEMOGRAM [HEME] AM Lab 12/17/20 05:11 Ordered CULTURE BLOOD [BC] Stat Lab 12/16/20 13:54 Received CULTURE BLOOD [BC] Stat Lab 12/16/20 14:09 Received MAGNESIUM [CHEM] AM Lab 12/17/20 05:11 Ordered PHOSPHORUS [CHEM] AM Lab 12/17/20 05:11 Ordered Acetaminophen [TylenoL] Med 12/16/20 16:37 Active 650 mg PO Q6H PRN Aspirin Med 12/17/20 09:00 Active 81 mg PO DAILY Docusate Sodium [Colace] Med 12/16/20 17:04 Active 100 mg PO BID PRN Escitalopram [Lexapro] Med 12/17/20 09:00 Active 20 mg PO DAILY Ferrous Sulfate Med 12/17/20 09:00 Active 325 mg PO DAILY Finasteride [Proscar] Med 12/17/20 09:00 Active 5 mg PO DAILY Furosemide [Lasix] 100 mg Med 12/16/20 17:00 Active Sodium Chloride 0.9% [Normal Saline] 90 ml IV CONTINUOUS Gabapentin [Neurontin] Med 12/16/20 21:00 Ordered 300 mg PO BEDTIME Heparin Sodium Med 12/16/20 22:00 Active 5,000 units SUBCUT Q8HR LORazepam [Ativan] Med 12/16/20 21:00 Ordered 0.5 mg PO BEDTIME Levothyroxine [Synthroid] Med 12/17/20 09:00 Ordered 125 mcg PO DAILY Midodrine Med 12/16/20 18:00 Ordered 5 mg PO TIDAC Nitroglycerin [Nitrostat] Med 12/16/20 16:37 Active 0.4 mg SL ASDIRECTED PRN Omeprazole Med 12/16/20 21:00 Active 20 mg PO BID Ondansetron [Zofran ODT] Med 12/16/20 17:04 Active 4 mg PO Q6H PRN Potassium Chloride [KCl in Water 10 MEQ/100 ML] 10 meq Med 12/16/20 17:00 Act adryan Premix Bag 1 bag IV Q2H Potassium Chloride [Klor-Con 10] Med 12/16/20 21:00 Ordered 30 meq PO BID Sodium Chloride 0.9% [Saline Flush] Med 12/16/20 17:04 Active 10 ml FLUSH ASDIRECTED PRN Tamsulosin [Flomax] Med 12/17/20 09:00 Active 0.4 mg PO DAILY Temazepam [Restoril] Med 12/16/20 17:04 Active 15 mg PO BEDTIME PRN cefTRIAXone [Rocephin] 1 gm Med 12/17/20 16:00 Active Sodium Chloride 0.9% [Normal Saline] 50 ml IV Q24H hydrOXYzine HCL [Atarax] Med 12/16/20 17:37 Ordered 25 mg PO Q6H PRN metOLazone [Zaroxolyn] Med 12/17/20 09:00 Ordered 5 mg PO DAILY Blood Culture x2 Reflex Set [OM.PC] Stat Oth 12/16/20 13:34 Ordered Blood Culture x2 Reflex Set [OM.PC] Stat Oth 12/16/20 16:34 Ordered Peripheral IV Insertion Adult [OM.PC] Routine Oth 12/16/20 17:04 Ordered Saline Lock Insert [OM.PC] Routine Oth 12/16/20 17:04 Ordered Resuscitation Status Routine Resus Stat 12/16/20 17:04 Ordered Medication Orders Acetaminophen (Acetaminophen 325 Mg Tab) 650 mg PO Q6H PRN PRN Reason: Pain (mild 1-3) Aspirin (Aspirin 81 Mg Tab.Chew) 81 mg PO DAILY [facility] Docusate Sodium (Docusate Sodium 100 Mg Cap) 100 mg PO BID PRN PRN Reason: Constipation Escitalopram Oxalate (Escitalopram 10 Mg Tab) 20 mg PO DAILY [facility] Ferrous Sulfate (Ferrous Sulfate 325 Mg Tab) 325 mg PO DAILY [facility] Finasteride (Finasteride 5 Mg Tab) 5 mg PO DAILY [facility] Gabapentin (Gabapentin 400 Mg Cap) 300 mg PO BEDTIME [facility] Heparin Sodium (Porcine) (Heparin Sodium 5,000 Units/Ml Vial) 5,000 units SUBCUT Q8HR [facility] Hydroxyzine HCl (Hydroxyzine Hcl 25 Mg Tab) 25 mg PO Q6H PRN PRN Reason: Itching Potassium Chloride 10 meq/ (Premix) 100 mls @ 50 mls/hr IV Q2H [facility] Stop: 12/17/20 00:59 Ceftriaxone Sodium 1 gm/ (Sodium Chloride) 50 mls @ 100 mls/hr IV Q24H [facility] Furosemide 100 mg/ Sodium (Chloride) 100 mls @ 5 mls/hr IV CONTINUOUS [facility]; Protocol Levothyroxine Sodium (Levothyroxine 50 Mcg Tab) 125 mcg PO DAILY [facility] Lorazepam (Lorazepam 0.5 Mg Tab) 0.5 mg PO BEDTIME [facility] Metolazone (Metolazone 2.5 Mg Tab) 5 mg PO DAILY [facility] Midodrine (Midodrine 2.5 Mg Tab) 5 mg PO TIDAC [facility] Nitroglycerin (Nitroglycerin 0.4 Mg Tab.Sl) 0.4 mg SL ASDIRECTED PRN PRN Reason: Chest Pain Omeprazole (Omeprazole 20 Mg Cap.Cr) 20 mg PO BID [facility] Ondansetron HCl (Ondansetron 4 Mg Tab.Dis) 4 mg PO Q6H PRN PRN Reason: nausea, able to take PO Potassium Chloride (Potassium Chloride 10 Meq Tab.Er) 30 meq PO BID [facility] Sodium Chloride (Sodium Chloride 0.9% 10 Ml Syringe) 10 ml FLUSH ASDIRECTED PRN PRN Reason: Keep Vein Open Tamsulosin HCl (Tamsulosin 0.4 Mg Cap.Er) 0.4 mg PO DAILY [facility] Temazepam (Temazepam 15 Mg Cap) 15 mg PO BEDTIME PRN PRN Reason: Sleep Assessment/Plan Comment:: Massive fluid overload Due to combination of right heart failure, chronic diastolic congestive heart failure, chronic kidney disease stage iV Patient does not want dialysis Has been on Bumex 2 mg twice a day, zaroxolyn skipped 24h meds prior toadmission Will start the patient on Lasix drip at 5 mg/h Will titrate up as tolerated cont midodrine for BP support cont metolazone Hypokalemia We'll replace with IV potassium Follow closely with diuretic drip Continue oral supplement and add IV supplement as needed Erythema of abdominal skin, b/l LE Possible cellulitis but most likely relate to fluid overload and edema Blood cultures have been drawn in the emergency room Will start empirical treatment with ceftriaxone History of afib off coreg re: hypotension not on anticoagulation due to h/o hematuria Hypothyroidism Continue Synthroid Depression Treat with Lexapro Prostate hypertrophy Continue Proscar, Flomax elected Full code status but does not want HD/PD
[2020-12-16] MEDS: Potassium Chloride 10 MEQ in Premix Bag 1 BAG IV SCH ×3 (18:30→23:00)
[2020-12-16] MEDS: Acetaminophen 325 MG Tab PO PRN (19:11)
[2020-12-16] MEDS: Midodrine 2.5 MG Tab PO SCH (20:58)
[2020-12-16] MEDS: Omeprazole 20 MG Cap.CR PO SCH (20:59)
[2020-12-16] MEDS: LORazepam 0.5 MG Tab PO SCH (20:59)
[2020-12-16] MEDS: Gabapentin 300 MG Cap PO SCH (21:00)
[2020-12-16] MEDS: Potassium Chloride 10 MEQ Tab.ER PO SCH (21:00)
[2020-12-16] MEDS ORDERED: Potassium Chloride 10 MEQ Tab.ER PO SCH (21:00)
[2020-12-16] MEDS ORDERED: Carvedilol 3.125 MG Tab PO SCH (21:00)
[2020-12-16] MEDS: Heparin Sodium 5,000 Units/ML Vial SUBCUT SCH (21:02)
[2020-12-16] MEDS: Furosemide 100 MG in Sodium Chloride 0.9% 90 ML IV SCH (22:40)
[2020-12-17] MEDS: Potassium Chloride 10 MEQ in Premix Bag 1 BAG IV SCH (01:07)
[2020-12-17] MEDS: Heparin Sodium 5,000 Units/ML Vial SUBCUT SCH ×3 (06:11→21:02)
[2020-12-17] MEDS: Midodrine 2.5 MG Tab PO SCH ×3 (06:12→15:32)
[2020-12-17] MEDS: Levothyroxine 50 MCG Tab PO SCH (06:12)
[2020-12-17] MEDS: Acetaminophen 325 MG Tab PO PRN ×2 (06:18→21:01)
[2020-12-17 06:28] LABS: ANION GAP 10.5 mEq/L (7-13)
[2020-12-17] MEDS: Metolazone 2.5 MG Tab PO SCH (08:48)
[2020-12-17] MEDS: Escitalopram 10 MG Tab PO SCH (08:48)
[2020-12-17] MEDS: Ferrous Sulfate 325 MG Tab PO SCH (08:48)
[2020-12-17] MEDS: Omeprazole 20 MG Cap.CR PO SCH ×2 (08:48→21:00)
[2020-12-17] MEDS: Potassium Chloride 10 MEQ Tab.ER PO SCH ×2 (08:48→21:00)
[2020-12-17] MEDS: Tamsulosin 0.4 MG Cap.ER PO SCH (08:48)
[2020-12-17] MEDS: Finasteride 5 MG Tab PO SCH (08:48)
[2020-12-17] MEDS: Aspirin 81 MG Tab.Chew PO SCH (08:48)
[2020-12-17] MEDS ORDERED: Levothyroxine 50 MCG Tab PO SCH (09:00)
--- NOTE | 2020-12-17 12:17 | PCM.PN ---
- General Info Date of Service: 12/17/20 Subjective Update: Feeling well Noted lower blood pressures but after Midodrin blood pressure stabilized and was able to start Lasix drip Has been urinating well, no associated shortness of breath The mild redness in the abdominal area that started prior to admission did not extend further, no associated fever Functional Status: Reports: Pain Controlled - Review of Systems General: Denies: Fever Pulmonary: Denies: Shortness of Breath Cardiovascular: Reports: Edema. Denies: Chest Pain Gastrointestinal: Denies: Abdominal Pain Genitourinary: Denies: Dysuria Neurological: Denies: Confusion - Patient Data Vitals - Most Recent: Last Vital Signs Temp 98.0 F 12/17/20 10:26 Pulse 67 12/17/20 10:26 Resp 12 12/17/20 08:00 BP 96/60 12/17/20 10:26 Pulse Ox 96 12/17/20 08:00 Weight - Most Recent: 200 lb 6.4 oz I&O - Last 24 Hours: Intake & Output 12/16/20 12/17/20 12/17/20 22:59 06:59 14:59 Intake Total 336 350 350 Output Total 875 275 Balance -539 75 350 Lab Results Last 24 Hours: Laboratory Results - last 24 hr 12/16/20 12/16/20 12/16/20 Range/Units 13:54 13:54 15:19 WBC 6.6 (5.0-10.0) 10^3/uL RBC 3.42 L (4.6-6.2) 10^6/uL Hgb 10.9 L D (14.0-18.0) g/dL Hct 33.8 L (40.0-54.0) % MCV 98.8 D (80-100) fL MCH 31.9 (27.0-34.0) pg MCHC 32.2 L (33.0-35.0) g/dL Plt Count 218 (150-450) 10^3/uL Neut % (Auto) 78.6 H (42.2-75.2) % Lymph % (Auto) 8.1 L (20.5-50.1) % Clark % (Auto) 10.3 H (2-8) % Eos % (Auto) 2.7 (1.0-3.0) % Baso % (Auto) 0.3 (0.0-1.0) % Sodium 136 (136-145) mmol/L Potassium 3.2 L D (3.5-5.1) mmol/L Chloride 92 L (98-107) mmol/L Carbon Dioxide 34 H (21-32) mmol/L Anion Gap 13.2 H (7-13) mEq/L BUN 43 H (7-18) mg/dL Creatinine 2.58 H D (0.70-1.30) mg/dL Est Cr Clr Drug Dosing 23.81 mL/min Estimated GFR (MDRD) 24 BUN/Creatinine Ratio 16.7 (No establ ref range) Glucose 80 (70-99) mg/dL Calcium 8.6 (8.5-10.1) mg/dL Phosphorus (2.6-4.7) mg/dL Magnesium (1.8-2.4) mg/dL Total Bilirubin 1.3 H (0.2-1.0) mg/dL AST 16 (15-37) U/L ALT 10 L (16-63) U/L Alkaline Phosphatase 165 H (46-116) U/L C-Reactive Protein 7.0 H (0.0-0.9) mg/dL B-Natriuretic Peptide 493 H (0-100) pg/ml Total Protein 7.2 (6.4-8.2) g/dL Albumin 3.4 (3.4-5.0) g/dL Globulin 3.8 Albumin/Globulin Ratio 0.9 Urine Color (YELLOW) Urine Appearance (CLEAR) Urine pH (5.0-9.0) Ur Specific Walters (1.005-1.030) Urine Protein (NEGATIVE) Urine Glucose (UA) (NEGATIVE) Urine Ketones (NEGATIVE) Urine Occult Blood (NEGATIVE) Urine Nitrite (NEGATIVE) Urine Bilirubin (NEGATIVE) Urine Urobilinogen (0.2-1.0) mg/dL Ur Leukocyte Esterase (NEGATIVE) U Hyaline Cast (Auto) Urine RBC (0-5) /HPF Urine WBC (0-5/HPF) /HPF Ur Epithelial Cells (NOT SEEN) /HPF Urine Mucus (NOT SEEN) /LPF SARS CoV-2 RNA Rapid LORETO Negative (NEGATIVE) 12/16/20 12/17/20 12/17/20 Range/Units 15:49 05:52 05:52 WBC 5.2 (5.0-10.0) 10^3/uL RBC 3.12 L (4.6-6.2) 10^6/uL Hgb 10.0 L (14.0-18.0) g/dL Hct 30.7 L (40.0-54.0) % MCV 98.4 (80-100) fL MCH 32.1 (27.0-34.0) pg MCHC 32.6 L (33.0-35.0) g/dL Plt Count 212 (150-450) 10^3/uL Neut % (Auto) (42.2-75.2) % Lymph % (Auto) (20.5-50.1) % Clark % (Auto) (2-8) % Eos % (Auto) (1.0-3.0) % Baso % (Auto) (0.0-1.0) % Sodium 138 (136-145) mmol/L Potassium 3.5 (3.5-5.1) mmol/L Chloride 97 L (98-107) mmol/L Carbon Dioxide 34 H (21-32) mmol/L Anion Gap 10.5 (7-13) mEq/L BUN 43 H (7-18) mg/dL Creatinine 2.48 H (0.70-1.30) mg/dL Est Cr Clr Drug Dosing 24.77 mL/min Estimated GFR (MDRD) 25 BUN/Creatinine Ratio (No establ ref range) Glucose 81 (70-99) mg/dL Calcium 8.1 L (8.5-10.1) mg/dL Phosphorus 3.7 (2.6-4.7) mg/dL Magnesium 1.8 (1.8-2.4) mg/dL Total Bilirubin (0.2-1.0) mg/dL AST (15-37) U/L ALT (16-63) U/L Alkaline Phosphatase (46-116) U/L C-Reactive Protein (0.0-0.9) mg/dL B-Natriuretic Peptide (0-100) pg/ml Total Protein (6.4-8.2) g/dL Albumin (3.4-5.0) g/dL Globulin Albumin/Globulin Ratio Urine Color Yellow (YELLOW) Urine Appearance Clear (CLEAR) Urine pH 7.0 (5.0-9.0) Ur Specific Walters 1.020 (1.005-1.030) Urine Protein Negative (NEGATIVE) Urine Glucose (UA) Negative (NEGATIVE) Urine Ketones Negative (NEGATIVE) Urine Occult Blood Trace-intact H (NEGATIVE) Urine Nitrite Negative (NEGATIVE) Urine Bilirubin Negative (NEGATIVE) Urine Urobilinogen 0.2 (0.2-1.0) mg/dL Ur Leukocyte Esterase Negative (NEGATIVE) U Hyaline Cast (Auto) Few Urine RBC 0-5 (0-5) /HPF Urine WBC 0-5 (0-5/HPF) /HPF Ur Epithelial Cells Few (NOT SEEN) /HPF Urine Mucus Few H (NOT SEEN) /LPF SARS CoV-2 RNA Rapid LORETO (NEGATIVE) Med Orders - Current: Current Medications Acetaminophen (Acetaminophen 325 Mg Tab) 650 mg PO Q6H PRN PRN Reason: Pain (mild 1-3) Last Admin: 12/17/20 06:18 Dose: 650 mg Documented by: Aspirin (Aspirin 81 Mg Tab.Chew) 81 mg PO DAILY [facility] Last Admin: 12/17/20 08:48 Dose: 81 mg Documented by: Docusate Sodium (Docusate Sodium 100 Mg Cap) 100 mg PO BID PRN PRN Reason: Constipation Escitalopram Oxalate (Escitalopram 10 Mg Tab) 20 mg PO DAILY [facility] Last Admin: 12/17/20 08:48 Dose: 20 mg Documented by: Ferrous Sulfate (Ferrous Sulfate 325 Mg Tab) 325 mg PO DAILY [facility] Last Admin: 12/17/20 08:48 Dose: 325 mg Documented by: Finasteride (Finasteride 5 Mg Tab) 5 mg PO DAILY [facility] Last Admin: 12/17/20 08:48 Dose: 5 mg Documented by: Gabapentin (Gabapentin 300 Mg Cap) 300 mg PO BEDTIME [facility] Last Admin: 12/16/20 21:00 Dose: 300 mg Documented by: Heparin Sodium (Porcine) (Heparin Sodium 5,000 Units/Ml Vial) 5,000 units SUBCUT Q8HR [facility] Last Admin: 12/17/20 06:11 Dose: 5,000 units Documented by: Hydroxyzine HCl (Hydroxyzine Hcl 25 Mg Tab) 25 mg PO Q6H PRN PRN Reason: Itching Ceftriaxone Sodium 1 gm/ (Sodium Chloride) 50 mls @ 100 mls/hr IV Q24H [facility] Furosemide 100 mg/ Sodium (Chloride) 100 mls @ 5 mls/hr IV CONTINUOUS [facility]; Protocol Last Admin: 12/16/20 22:40 Dose: 5 mg/hr, 5 mls/hr Documented by: Levothyroxine Sodium (Levothyroxine 50 Mcg Tab) 125 mcg PO ACBREAKFAST [facility] Last Admin: 12/17/20 06:12 Dose: 125 mcg Documented by: Lorazepam (Lorazepam 0.5 Mg Tab) 0.5 mg PO BEDTIME [facility] Last Admin: 12/16/20 20:59 Dose: 0.5 mg Documented by: Metolazone (Metolazone 2.5 Mg Tab) 5 mg PO DAILY [facility] Last Admin: 12/17/20 08:48 Dose: 5 mg Documented by: Midodrine (Midodrine 2.5 Mg Tab) 5 mg PO TIDAC [facility] Last Admin: 12/17/20 10:31 Dose: 5 mg Documented by: Nitroglycerin (Nitroglycerin 0.4 Mg Tab.Sl) 0.4 mg SL ASDIRECTED PRN PRN Reason: Chest Pain Omeprazole (Omeprazole 20 Mg Cap.Cr) 20 mg PO BID [facility] Last Admin: 12/17/20 08:48 Dose: 20 mg Documented by: Ondansetron HCl (Ondansetron 4 Mg Tab.Dis) 4 mg PO Q6H PRN PRN Reason: nausea, able to take PO Potassium Chloride (Potassium Chloride 10 Meq Tab.Er) 30 meq PO BID [facility] Last Admin: 12/17/20 08:48 Dose: 30 meq Documented by: Sodium Chloride (Sodium Chloride 0.9% 10 Ml Syringe) 10 ml FLUSH ASDIRECTED PRN PRN Reason: Keep Vein Open Tamsulosin HCl (Tamsulosin 0.4 Mg Cap.Er) 0.4 mg PO DAILY [facility] Last Admin: 12/17/20 08:48 Dose: 0.4 mg Documented by: Temazepam (Temazepam 15 Mg Cap) 15 mg PO BEDTIME PRN PRN Reason: Sleep Last Admin: 12/16/20 23:09 Dose: 15 mg Documented by: Discontinued Medications Carvedilol (Carvedilol 3.125 Mg Tab) 3.125 mg PO BID [facility] Ceftriaxone Sodium (Ceftriaxone 1 Gm Vial) 1 gm IVPUSH Q24H [facility] Furosemide (Furosemide 40 Mg/4 Ml Vial) 40 mg IVPUSH ONETIME ONE Stop: 12/16/20 14:37 Last Admin: 12/16/20 15:02 Dose: 40 mg Documented by: Ceftriaxone Sodium 1 gm/ (Sodium Chloride) 50 mls @ 100 mls/hr IV ONETIME ONE Stop: 12/16/20 15:45 Last Admin: 12/16/20 15:50 Dose: 100 mls/hr Documented by: Potassium Chloride 10 meq/ (Premix) 100 mls @ 50 mls/hr IV Q2H [facility] Stop: 12/17/20 00:59 Last Infusion: 12/17/20 03:23 Dose: Infused Documented by: Levothyroxine Sodium (Levothyroxine 50 Mcg Tab) 50 mcg PO DAILY [facility] Potassium Chloride (Potassium Chloride 10 Meq Tab.Er) 20 meq PO BID [facility] - Exam Quality Assessment: No: Supplemental Oxygen General: Alert, Oriented Neck: Supple Lungs: Normal Respiratory Effort, Rhonchi (b/l) Cardiovascular: Regular Rate, Regular Rhythm GI/Abdominal Exam: Normal Bowel Sounds, Soft, Non-Tender Extremities: Pedal Edema (upto thigh) Skin: Warm, Other (resolving redness in abdominal area) Neurological: No New Focal Deficit Psy/Mental Status: Alert, Normal Affect, Normal Mood - Patient Data Lab Results Last 24 hrs: Laboratory Results - last 24 hr 12/16/20 12/16/20 12/16/20 Range/Units 13:54 13:54 15:19 WBC 6.6 (5.0-10.0) 10^3/uL RBC 3.42 L (4.6-6.2) 10^6/uL Hgb 10.9 L D (14.0-18.0) g/dL Hct 33.8 L (40.0-54.0) % MCV 98.8 D (80-100) fL MCH 31.9 (27.0-34.0) pg MCHC 32.2 L (33.0-35.0) g/dL Plt Count 218 (150-450) 10^3/uL Neut % (Auto) 78.6 H (42.2-75.2) % Lymph % (Auto) 8.1 L (20.5-50.1) % Clark % (Auto) 10.3 H (2-8) % Eos % (Auto) 2.7 (1.0-3.0) % Baso % (Auto) 0.3 (0.0-1.0) % Sodium 136 (136-145) mmol/L Potassium 3.2 L D (3.5-5.1) mmol/L Chloride 92 L (98-107) mmol/L Carbon Dioxide 34 H (21-32) mmol/L Anion Gap 13.2 H (7-13) mEq/L BUN 43 H (7-18) mg/dL Creatinine 2.58 H D (0.70-1.30) mg/dL Est Cr Clr Drug Dosing 23.81 mL/min Estimated GFR (MDRD) 24 BUN/Creatinine Ratio 16.7 (No establ ref range) Glucose 80 (70-99) mg/dL Calcium 8.6 (8.5-10.1) mg/dL Phosphorus (2.6-4.7) mg/dL Magnesium (1.8-2.4) mg/dL Total Bilirubin 1.3 H (0.2-1.0) mg/dL AST 16 (15-37) U/L ALT 10 L (16-63) U/L Alkaline Phosphatase 165 H (46-116) U/L C-Reactive Protein 7.0 H (0.0-0.9) mg/dL B-Natriuretic Peptide 493 H (0-100) pg/ml Total Protein 7.2 (6.4-8.2) g/dL Albumin 3.4 (3.4-5.0) g/dL Globulin 3.8 Albumin/Globulin Ratio 0.9 Urine Color (YELLOW) Urine Appearance (CLEAR) Urine pH (5.0-9.0) Ur Specific Walters (1.005-1.030) Urine Protein (NEGATIVE) Urine Glucose (UA) (NEGATIVE) Urine Ketones (NEGATIVE) Urine Occult Blood (NEGATIVE) Urine Nitrite (NEGATIVE) Urine Bilirubin (NEGATIVE) Urine Urobilinogen (0.2-1.0) mg/dL Ur Leukocyte Esterase (NEGATIVE) U Hyaline Cast (Auto) Urine RBC (0-5) /HPF Urine WBC (0-5/HPF) /HPF Ur Epithelial Cells (NOT SEEN) /HPF Urine Mucus (NOT SEEN) /LPF SARS CoV-2 RNA Rapid LORETO Negative (NEGATIVE) 12/16/20 12/17/20 12/17/20 Range/Units 15:49 05:52 05:52 WBC 5.2 (5.0-10.0) 10^3/uL RBC 3.12 L (4.6-6.2) 10^6/uL Hgb 10.0 L (14.0-18.0) g/dL Hct 30.7 L (40.0-54.0) % MCV 98.4 (80-100) fL MCH 32.1 (27.0-34.0) pg MCHC 32.6 L (33.0-35.0) g/dL Plt Count 212 (150-450) 10^3/uL Neut % (Auto) (42.2-75.2) % Lymph % (Auto) (20.5-50.1) % Clark % (Auto) (2-8) % Eos % (Auto) (1.0-3.0) % Baso % (Auto) (0.0-1.0) % Sodium 138 (136-145) mmol/L Potassium 3.5 (3.5-5.1) mmol/L Chloride 97 L (98-107) mmol/L Carbon Dioxide 34 H (21-32) mmol/L Anion Gap 10.5 (7-13) mEq/L BUN 43 H (7-18) mg/dL Creatinine 2.48 H (0.70-1.30) mg/dL Est Cr Clr Drug Dosing 24.77 mL/min Estimated GFR (MDRD) 25 BUN/Creatinine Ratio (No establ ref range) Glucose 81 (70-99) mg/dL Calcium 8.1 L (8.5-10.1) mg/dL Phosphorus 3.7 (2.6-4.7) mg/dL Magnesium 1.8 (1.8-2.4) mg/dL Total Bilirubin (0.2-1.0) mg/dL AST (15-37) U/L ALT (16-63) U/L Alkaline Phosphatase (46-116) U/L C-Reactive Protein (0.0-0.9) mg/dL B-Natriuretic Peptide (0-100) pg/ml Total Protein (6.4-8.2) g/dL Albumin (3.4-5.0) g/dL Globulin Albumin/Globulin Ratio Urine Color Yellow (YELLOW) Urine Appearance Clear (CLEAR) Urine pH 7.0 (5.0-9.0) Ur Specific Walters 1.020 (1.005-1.030) Urine Protein Negative (NEGATIVE) Urine Glucose (UA) Negative (NEGATIVE) Urine Ketones Negative (NEGATIVE) Urine Occult Blood Trace-intact H (NEGATIVE) Urine Nitrite Negative (NEGATIVE) Urine Bilirubin Negative (NEGATIVE) Urine Urobilinogen 0.2 (0.2-1.0) mg/dL Ur Leukocyte Esterase Negative (NEGATIVE) U Hyaline Cast (Auto) Few Urine RBC 0-5 (0-5) /HPF Urine WBC 0-5 (0-5/HPF) /HPF Ur Epithelial Cells Few (NOT SEEN) /HPF Urine Mucus Few H (NOT SEEN) /LPF SARS CoV-2 RNA Rapid LORETO (NEGATIVE) Result Diagrams: 12/17/20 05:52 12/17/20 05:52 Sepsis Event Note - Evaluation Sepsis Screening Result: Possible Sepsis Risk - Focused Exam Vital Signs: Vital Signs Temp Pulse Resp BP BP Pulse Ox 12/17/20 10:26 98.0 F 67 96/60 12/17/20 08:00 97.6 F 77 12 87/54 L 96 12/17/20 06:29 96.8 F L 76 18 92/57 L 95 12/17/20 04:23 96.2 F L 73 18 95/60 95 12/17/20 03:21 97.2 F 84 18 83/57 L 94 L 12/17/20 01:13 98.1 F 74 18 90/64 93 L - Problem List & Annotations (1) Hypokalemia SNOMED Code(s): 92184199 Code(s): E87.6 - HYPOKALEMIA Status: Acute Current Visit: Yes (2) Hypothyroidism SNOMED Code(s): 23079708 Code(s): E03.9 - HYPOTHYROIDISM, UNSPECIFIED Status: Acute Current Visit: Yes (3) Depression SNOMED Code(s): 05641755 Code(s): F32.9 - MAJOR DEPRESSIVE DISORDER, SINGLE EPISODE, UNSPECIFIED Status: Acute Current Visit: Yes (4) Atrial fibrillation SNOMED Code(s): 38452695 Code(s): I48.91 - UNSPECIFIED ATRIAL FIBRILLATION Status: Acute Current Visit: Yes (5) CHF, Congestive heart failure SNOMED Code(s): 35249345 Code(s): I50.9 - HEART FAILURE, UNSPECIFIED Status: Acute Current Visit: No - Problem List Review Problem List Initiated/Reviewed/Updated: Yes - My Orders Last 24 Hours: My Active Orders 12/16/20 16:34 Blood Culture x2 Reflex Set [OM.PC] Stat 12/16/20 16:37 Acetaminophen [TylenoL] 650 mg PO Q6H PRN Nitroglycerin [Nitrostat] 0.4 mg SL ASDIRECTED PRN 12/16/20 17:00 Furosemide [Lasix] 100 mg Sodium Chloride 0.9% [Normal Saline] 90 ml IV CONTINUOUS 12/16/20 17:04 Oxygen Therapy [RC] PRN Up With Assistance [RC] ASDIRECTED VTE/DVT Education [RC] PER UNIT ROUTINE Vital Signs [RC] 00,04,08,12,16,20 Docusate Sodium [Colace] 100 mg PO BID PRN Ondansetron [Zofran ODT] 4 mg PO Q6H PRN Sodium Chloride 0.9% [Saline Flush] 10 ml FLUSH ASDIRECTED PRN Temazepam [Restoril] 15 mg PO BEDTIME PRN Peripheral IV Insertion Adult [OM.PC] Routine Saline Lock Insert [OM.PC] Routine Resuscitation Status Routine 12/16/20 17:06 Peripheral IV Care [RC] 12/16/20 Dinner Regular Diet [DIET] 12/16/20 17:37 hydrOXYzine HCL [Atarax] 25 mg PO Q6H PRN 12/16/20 17:38 Wound Care [RC] DAILY 12/16/20 18:00 Midodrine 5 mg PO TIDAC 12/16/20 21:00 Gabapentin [Neurontin] 300 mg PO BEDTIME LORazepam [Ativan] 0.5 mg PO BEDTIME Omeprazole 20 mg PO BID Potassium Chloride [Klor-Con 10] 30 meq PO BID 12/16/20 22:00 Heparin Sodium 5,000 units SUBCUT Q8HR 12/17/20 06:00 Levothyroxine [Synthroid] 125 mcg PO ACBREAKFAST 12/17/20 09:00 Aspirin 81 mg PO DAILY Escitalopram [Lexapro] 20 mg PO DAILY Ferrous Sulfate 325 mg PO DAILY Finasteride [Proscar] 5 mg PO DAILY Tamsulosin [Flomax] 0.4 mg PO DAILY metOLazone [Zaroxolyn] 5 mg PO DAILY 12/17/20 16:00 cefTRIAXone [Rocephin] 1 gm Sodium Chloride 0.9% [Normal Saline] 50 ml IV Q24H 12/17/20 22:00 BASIC METABOLIC PANEL,BMP [CHEM] Timed - Plan Plan:: Massive fluid overload Due to combination of right heart failure, chronic diastolic congestive heart failure, chronic kidney disease stage iV Patient does not want dialysis Has been on Bumex 2 mg twice a day, zaroxolyn skipped 24h meds prior to admission blood pressure initially was low but improved after middle continue on Lasix drip at 5 mg/h Will titrate up as tolerated cont midodrine for BP support cont metolazone Hypokalemia replaced with IV potassium Follow closely with diuretic drip Continue oral supplement and add IV supplement as needed Erythema of abdominal skin, b/l LE Possible cellulitis but most likely relate to fluid overload and edema Blood cultures are pending started empirical treatment with ceftriaxone History of afib off coreg re: hypotension not on anticoagulation due to h/o hematuria Hypothyroidism Continue Synthroid Depression Treat with Lexapro Prostate hypertrophy Continue Proscar, Flomax elected Full code status but does not want HD/PD
[2020-12-17 14:37] LABS: ANION GAP 11.4 mEq/L (7-13)
[2020-12-17] MEDS: Furosemide 100 MG in Sodium Chloride 0.9% 90 ML IV SCH (15:57)
[2020-12-17] MEDS ORDERED: cefTRIAXone 1 GM in Sodium Chloride 0.9% 50 ML IV SCH (16:00)
[2020-12-17] MEDS ORDERED: cefTRIAXone 1 GM Vial IVPUSH SCH (16:00)
[2020-12-17] MEDS: LORazepam 0.5 MG Tab PO SCH (21:00)
[2020-12-17] MEDS: Gabapentin 300 MG Cap PO SCH (21:00)
[2020-12-18] MEDS: Levothyroxine 50 MCG Tab PO SCH (05:53)
[2020-12-18] MEDS: Heparin Sodium 5,000 Units/ML Vial SUBCUT SCH ×2 (05:56→13:59)
[2020-12-18] MEDS: Midodrine 2.5 MG Tab PO SCH ×2 (05:56→11:21)
[2020-12-18 06:45] LABS: ANION GAP 10.3 mEq/L (7-13)
[2020-12-18] MEDS: Potassium Chloride 10 MEQ Tab.ER PO SCH (08:33)
[2020-12-18] MEDS: Metolazone 2.5 MG Tab PO SCH (08:33)
[2020-12-18] MEDS: Aspirin 81 MG Tab.Chew PO SCH (08:34)
[2020-12-18] MEDS: Tamsulosin 0.4 MG Cap.ER PO SCH (08:34)
[2020-12-18] MEDS: Ferrous Sulfate 325 MG Tab PO SCH (08:34)
[2020-12-18] MEDS: Escitalopram 10 MG Tab PO SCH (08:34)
[2020-12-18] MEDS: Finasteride 5 MG Tab PO SCH (08:34)
[2020-12-18] MEDS: Omeprazole 20 MG Cap.CR PO SCH (08:34)
[2020-12-18] MEDS ORDERED: Potassium Chloride 10 MEQ Tab.ER PO ONE (11:20)
--- NOTE | 2020-12-18 11:39 | PCM.DCSUM1 ---
Discharge Summary - Hospital Course Free Text/Narrative:: recently hositalized at [facility] for fluid overload. diuresed and discharged home pt was not interested in HD at home skipped meds x 24h noted increased edema in legs, abdominal wall with associated redness Massive fluid overload Due to combination of right heart failure, chronic diastolic congestive heart failure, chronic kidney disease stage iV Patient does not want dialysis Has been on Bumex, zaroxolyn skipped 24h meds prior to admission blood pressure initially was low but remained stable with midodrine treated with Lasix drip, K supplemented will resume to home dose of midodrine, metolazone, bumex - advised on better compliance will follow up pmd and nephro next week Erythema of abdominal skin, b/l LE Possible cellulitis but most likely relate to fluid overload and edema Blood cultures are negative started empirical treatment with ceftriaxone - will stop ABx History of afib off coreg re: hypotension not on anticoagulation due to h/o hematuria Hypothyroidism Continue Synthroid Depression Treat with Lexapro Prostate hypertrophy Continue Proscar, Flomax would benefit from home-care RN for monitoring signs of fluid overload, infection PT for strengthening ot for ADL training elected Full code status but does not want HD/PD Diagnosis: Stroke: No - Discharge Data Discharge Date: 12/18/20 Discharge Disposition: Home, W Home Health Agency 06 Condition: Good - Referral to Home Health Date of Face to Face Encounter: 12/18/20 Reason for Homebound Status: needs caregiver for ambulation , not driving Primary Care Physician: PCP None Skilled Need: RN to monitor signs of fluid overload,. PT: for strengthening. OT: to improved ADLs - Discharge Diagnosis/Problem(s) (1) Hypokalemia SNOMED Code(s): 74502028 ICD Code: E87.6 - HYPOKALEMIA Status: Acute Current Visit: Yes (2) Hypothyroidism SNOMED Code(s): 84729383 ICD Code: E03.9 - HYPOTHYROIDISM, UNSPECIFIED Status: Acute Current Visit: Yes (3) Depression SNOMED Code(s): 07393410 ICD Code: F32.9 - MAJOR DEPRESSIVE DISORDER, SINGLE EPISODE, UNSPECIFIED Status: Acute Current Visit: Yes (4) Atrial fibrillation SNOMED Code(s): 07029279 ICD Code: I48.91 - UNSPECIFIED ATRIAL FIBRILLATION Status: Acute Current Visit: Yes (5) CHF, Congestive heart failure SNOMED Code(s): 92760505 ICD Code: I50.9 - HEART FAILURE, UNSPECIFIED Status: Acute Current Visit: No - Discharge Plan *PRESCRIPTION DRUG MONITORING PROGRAM REVIEWED*: No *COPY OF PRESCRIPTION DRUG MONITORING REPORT IN PATIENT DANILO: No Home Medications: Home Meds Tamsulosin [Flomax] 1 tab PO DAILY 04/24/17 [History] Escitalopram [Lexapro] 20 mg PO DAILY 10/30/17 [History] carvediloL [Carvedilol] 3.125 mg PO BID 10/30/17 [History] Nitroglycerin 0.4 mg PO ASDIRECTED PRN 03/31/19 [History] Omeprazole 20 mg PO BID 03/31/19 [History] Aspirin 81 mg PO DAILY 06/16/19 [History] Levothyroxine [Synthroid] 125 mcg PO DAILY 06/16/19 [History] Potassium Chloride 20 meq PO BID 06/16/19 [History] Bumetanide 2 mg PO DAILY 07/06/19 [History] Finasteride [Proscar] 5 mg PO DAILY 07/06/19 [History] Acetaminophen [Tylenol] 650 mg PO Q6H PRN 09/29/19 [History] Ferrous Sulfate 325 mg PO DAILY 09/29/19 [History] Gabapentin [Neurontin] 300 mg PO BEDTIME 12/16/20 [History] LORazepam [Lorazepam] 0.5 mg PO BEDTIME 12/16/20 [History] Midodrine 15 mg PO TID 12/16/20 [History] Mirabegron [Myrbetriq] 25 mg PO BEDTIME 12/16/20 [History] hydrOXYzine HCL [hydrOXYzine] 25 mg PO Q6HR PRN 12/16/20 [History] metOLazone [Metolazone] 5 mg PO DAILY 12/16/20 [History] Oxygen Therapy Mode: Room Air Patient Handouts: Edema, Chronic Kidney Disease, Adult Referrals: PCP,None [Primary Care Provider] - - Discharge Summary/Plan Comment DC Time >30 min.: Yes Total # of Minutes for Discharge Time: 40 min - d/w sister and patient, home care referral - General Info Date of Service: 12/18/20 - Review of Systems General: Reports: Weakness. Denies: Fever Pulmonary: Denies: Shortness of Breath Cardiovascular: Reports: Edema (improved). Denies: Chest Pain Gastrointestinal: Denies: Abdominal Pain, Constipation, Diarrhea, Nausea, Vomiting Genitourinary: Denies: Dysuria Neurological: Denies: Confusion - Patient Data Vitals - Most Recent: Last Vital Signs Temp 98.2 F 12/18/20 10:36 Pulse 82 12/18/20 10:36 Resp 18 12/18/20 10:36 BP 90/72 12/18/20 10:36 Pulse Ox 96 12/18/20 10:36 Weight - Most Recent: 200 lb 6.4 oz I&O - Last 24 hours: Intake & Output 12/17/20 12/18/20 12/18/20 22:59 06:59 14:59 Intake Total 320 Output Total 250 Balance -250 320 Lab Results - Last 24 hrs: Laboratory Results - last 24 hr 12/17/20 12/18/20 12/18/20 Range/Units 14:16 06:05 06:05 WBC 5.2 (5.0-10.0) 10^3/uL RBC 3.23 L (4.6-6.2) 10^6/uL Hgb 10.4 L (14.0-18.0) g/dL Hct 33.6 L (40.0-54.0) % MCV 104.0 H D (80-100) fL MCH 32.2 (27.0-34.0) pg MCHC 31.0 L (33.0-35.0) g/dL Plt Count 209 (150-450) 10^3/uL Neut % (Auto) 72.6 (42.2-75.2) % Lymph % (Auto) 11.3 L (20.5-50.1) % [place] % (Auto) 12.6 H (2-8) % Eos % (Auto) 3.3 H (1.0-3.0) % Baso % (Auto) 0.2 (0.0-1.0) % Sodium 137 139 (136-145) mmol/L Potassium 3.4 L 3.3 L (3.5-5.1) mmol/L Chloride 95 L 97 L (98-107) mmol/L Carbon Dioxide 34 H 35 H (21-32) mmol/L Anion Gap 11.4 10.3 (7-13) mEq/L BUN 45 H 48 H (7-18) mg/dL Creatinine 2.54 H 2.50 H (0.70-1.30) mg/dL Est Cr Clr Drug Dosing 24.19 24.57 mL/min Estimated GFR (MDRD) 24 25 Glucose 94 90 (70-99) mg/dL Calcium 8.3 L 8.2 L (8.5-10.1) mg/dL OSITO Results - Last 24 hrs: Microbiology 12/16/20 14:09 Aerobic Blood Culture - Preliminary Blood - Arm, Right NO GROWTH AFTER 1 DAY Anaerobic Blood Culture - Preliminary NO GROWTH AFTER 1 DAY 12/16/20 13:54 Aerobic Blood Culture - Preliminary Blood - Arm, Left NO GROWTH AFTER 1 DAY Anaerobic Blood Culture - Preliminary NO GROWTH AFTER 1 DAY Med Orders - Current: Current Medications Acetaminophen (Acetaminophen 325 Mg Tab) 650 mg PO Q6H PRN PRN Reason: Pain (mild 1-3) Last Admin: 12/17/20 21:01 Dose: 650 mg Documented by: Aspirin (Aspirin 81 Mg Tab.Chew) 81 mg PO DAILY [facility] Last Admin: 12/18/20 08:34 Dose: 81 mg Documented by: Docusate Sodium (Docusate Sodium 100 Mg Cap) 100 mg PO BID PRN PRN Reason: Constipation Escitalopram Oxalate (Escitalopram 10 Mg Tab) 20 mg PO DAILY [facility] Last Admin: 12/18/20 08:34 Dose: 20 mg Documented by: Ferrous Sulfate (Ferrous Sulfate 325 Mg Tab) 325 mg PO DAILY [facility] Last Admin: 12/18/20 08:34 Dose: 325 mg Documented by: Finasteride (Finasteride 5 Mg Tab) 5 mg PO DAILY [facility] Last Admin: 12/18/20 08:34 Dose: 5 mg Documented by: Gabapentin (Gabapentin 300 Mg Cap) 300 mg PO BEDTIME [facility] Last Admin: 12/17/20 21:00 Dose: 300 mg Documented by: Heparin Sodium (Porcine) (Heparin Sodium 5,000 Units/Ml Vial) 5,000 units SUBCUT Q8HR [facility] Last Admin: 12/18/20 05:56 Dose: 5,000 units Documented by: Hydroxyzine HCl (Hydroxyzine Hcl 25 Mg Tab) 25 mg PO Q6H PRN PRN Reason: Itching Ceftriaxone Sodium 1 gm/ (Sodium Chloride) 50 mls @ 100 mls/hr IV Q24H [facility] Last Admin: 12/17/20 15:32 Dose: 100 mls/hr Documented by: Furosemide 100 mg/ Sodium (Chloride) 100 mls @ 5 mls/hr IV CONTINUOUS [facility]; Protocol Last Admin: 12/17/20 15:57 Dose: 5 mg/hr, 5 mls/hr Documented by: Levothyroxine Sodium (Levothyroxine 50 Mcg Tab) 125 mcg PO ACBREAKFAST [facility] Last Admin: 12/18/20 05:53 Dose: 125 mcg Documented by: Lorazepam (Lorazepam 0.5 Mg Tab) 0.5 mg PO BEDTIME [facility] Last Admin: 12/17/20 21:00 Dose: 0.5 mg Documented by: Metolazone (Metolazone 2.5 Mg Tab) 5 mg PO DAILY [facility] Last Admin: 12/18/20 08:33 Dose: 5 mg Documented by: Midodrine (Midodrine 2.5 Mg Tab) 5 mg PO TIDAC [facility] Last Admin: 12/18/20 11:21 Dose: 5 mg Documented by: Nitroglycerin (Nitroglycerin 0.4 Mg Tab.Sl) 0.4 mg SL ASDIRECTED PRN PRN Reason: Chest Pain Omeprazole (Omeprazole 20 Mg Cap.Cr) 20 mg PO BID [facility] Last Admin: 12/18/20 08:34 Dose: 20 mg Documented by: Ondansetron HCl (Ondansetron 4 Mg Tab.Dis) 4 mg PO Q6H PRN PRN Reason: nausea, able to take PO Potassium Chloride (Potassium Chloride 10 Meq Tab.Er) 30 meq PO BID [facility] Last Admin: 12/18/20 08:33 Dose: 30 meq Documented by: Sodium Chloride (Sodium Chloride 0.9% 10 Ml Syringe) 10 ml FLUSH ASDIRECTED PRN PRN Reason: Keep Vein Open Tamsulosin HCl (Tamsulosin 0.4 Mg Cap.Er) 0.4 mg PO DAILY [facility] Last Admin: 12/18/20 08:34 Dose: 0.4 mg Documented by: Temazepam (Temazepam 15 Mg Cap) 15 mg PO BEDTIME PRN PRN Reason: Sleep Last Admin: 12/16/20 23:09 Dose: 15 mg Documented by: Discontinued Medications Carvedilol (Carvedilol 3.125 Mg Tab) 3.125 mg PO BID [facility] Ceftriaxone Sodium (Ceftriaxone 1 Gm Vial) 1 gm IVPUSH Q24H [facility] Furosemide (Furosemide 40 Mg/4 Ml Vial) 40 mg IVPUSH ONETIME ONE Stop: 12/16/20 14:37 Last Admin: 12/16/20 15:02 Dose: 40 mg Documented by: Ceftriaxone Sodium 1 gm/ (Sodium Chloride) 50 mls @ 100 mls/hr IV ONETIME ONE Stop: 12/16/20 15:45 Last Admin: 12/16/20 15:50 Dose: 100 mls/hr Documented by: Potassium Chloride 10 meq/ (Premix) 100 mls @ 50 mls/hr IV Q2H [facility] Stop: 12/17/20 00:59 Last Infusion: 12/17/20 03:23 Dose: Infused Documented by: Levothyroxine Sodium (Levothyroxine 50 Mcg Tab) 50 mcg PO DAILY [facility] Potassium Chloride (Potassium Chloride 10 Meq Tab.Er) 20 meq PO BID [facility] Potassium Chloride (Potassium Chloride 10 Meq Tab.Er) 20 meq PO ONETIME ONE Stop: 12/18/20 11:21 - Exam General: Reports: Alert, Oriented Neck: Reports: Supple Lungs: Reports: Clear to Auscultation, Normal Respiratory Effort Cardiovascular: Reports: Regular Rate, Regular Rhythm GI/Abdominal Exam: Normal Bowel Sounds, Soft, Non-Tender Extremities: Pedal Edema (after removing tubigrip - trace edema) Skin: Reports: Other (edema of thigh, lower abd wall with mild, blanching erythema) Psy/Mental Status: Reports: Alert, Normal Affect, Normal Mood
== END 2020-12-18 14:22 | disposition home health service (06) | DRG 291 ==
LOC: DL.ED 13:06 → DL.MS 15:17
PROVIDERS: ADMIT Internal Medicine; ATTEND Internal Medicine
DX: E87.70 Fluid overload, unspecified (principal); N28.9 Disorder of kidney and ureter, unspecified; R18.8 Other ascites; I13.0 Hypertensive heart and chronic kidney disease with heart failure and stage 1 through stage 4 chronic kidney disease, or unspecified chronic kidney disease; I50.33 Acute on chronic diastolic (congestive) heart failure; N18.4 Chronic kidney disease, stage 4 (severe); I10 Essential (primary) hypertension; L03.116 Cellulitis of left lower limb; L03.115 Cellulitis of right lower limb; H91.93 Unspecified hearing loss, bilateral; I42.8 Other cardiomyopathies; L53.9 Erythematous condition, unspecified; I48.91 Unspecified atrial fibrillation; I95.9 Hypotension, unspecified; E03.9 Hypothyroidism, unspecified; F32.9 Major depressive disorder, single episode, unspecified; E87.6 Hypokalemia; I27.20 Pulmonary hypertension, unspecified; I25.10 Atherosclerotic heart disease of native coronary artery without angina pectoris; N40.0 Benign prostatic hyperplasia without lower urinary tract symptoms; M19.90 Unspecified osteoarthritis, unspecified site; M54.2 Cervicalgia; Z96.653 Presence of artificial knee joint, bilateral; Z96.611 Presence of right artificial shoulder joint; E66.9 Obesity, unspecified; Z98.41 Cataract extraction status, right eye; Z79.890 Hormone replacement therapy; Z79.899 Other long term (current) drug therapy; Z79.82 Long term (current) use of aspirin; Z95.0 Presence of cardiac pacemaker; Z88.1 Allergy status to other antibiotic agents; Z95.810 Presence of automatic (implantable) cardiac defibrillator; Z98.42 Cataract extraction status, left eye; Z20.822 Contact with and (suspected) exposure to COVID-19; Z68.27 Body mass index [BMI] 27.0-27.9, adult
CPT/HCPCS: 36415; 71045; 80048; 80053; 81001; 83735; 83880; 84100; 85025; 85027; 86140; 87040; 93005; 96374; 99285-25; A9270-GY; J0696; J1644; J1940; J3480; U0002